=== PATIENT | female | born 2005 | race Caucasian/White ===

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

== ENCOUNTER 2025-03-19 16:18 | Outpatient (CLI) | payer MEDICAID, SELFPAY ==
--- OUTSIDE RECORDS SUMMARY | 2025-01-28 13:00 | XMS_ITS | Encounter Summary ---
Author Organization [employer] Address [address] [place] [address] Care Team Providers Care Director Of Construction Name Role Phone Jcarlos Barronlye Walkergalilea SIMPSON Primary Care Provider Reason for Referral * Consultation (Routine) - Closed Specialty Diagnoses / Procedures Referred By Contac t Referred To Contact Sleep Medicine Diagnoses HAWA (obstructive sleep apnea) Wally Cartagena MD [address] [facility] [address] [place] [address] Phone: tel: fax: Julianne Pantoja MD [address] [facility] [address] [place] [address] Phone: tel: fax: Referral ID Status Reason Start Date Expiration Date V isits Requested Visits Authorized [id number] Closed Specialty Services Required 01/28/2025 01/28/2026 1 1 * Surgical (Routine) - Closed Specialty Diagnoses / Procedures Referred By Contac t Referred To Contact Pulmonology Diagnoses Shortness of breath Procedures Pulmonary Function Testing PFT and MCT Wally Cartagena MD [address] [facility] [address] [place] [address] Phone: tel: fax: [facility] [address] [place] [phone] Phone: tel: fax: Referral ID Status Reason Start Date Expiration Date Visits Re quested Visits Authorized [id number] Closed 02/04/2025 02/04/2026 1 1 Reason for Visit * Reason Comments Shortness of Breath Cough Chest Pain New patient here tod ay for NULL Encounter Details Date Type Department Care Team (Late st Contact Info) Description 01/28/2025 1:00 PM EDT Office Visit [facility] Pulmonology - [address] [place] [address] Wally Cartagena MD [address] [place] [address] HAWA (obstructive sleep apnea) (Primary Dx); Shortness of breath; Wheezing; Other fatigue Social History Tobacco Use Types Packs/Day Years Used Date Smoking Tobacco: Never Smokeless Tobacco: Never Alcohol Use Standard Drinks/Week Comments Not Currently 0 (1 standard drink = 0.6 oz pur e alcohol) Humiliation, Afraid, Rape, and Kick questionnair e Answer Date Recorded Within the last year, have y ou been afraid of your partner or ex-partner? No 06/20/2023 Within the last year, have y ou been humiliated or emotionally abused in other ways by your partner or ex-partner? No Within the last year, have y ou been kicked, hit, slapped, or otherwise physically hurt by your partner or ex-partner? No 06/20/2023 Within the last year, have y ou been raped or forced to have any kind of sexual activity by your partner or ex-partner? No 06/20/2023 AUDIT-C Answer Date Recorded Q1: How often do you have a drink containing alcohol? Never 06/20/2023 Q2: How many drinks containi ng alcohol do you have on a typical day when you are drinking? Patient does not drink Q3: How often do you have si x or more drinks on one occasion? Never 06/20/2023 Overall Financial Resource Strain (CARDIA) Answe r Date Recorded How hard is it for you to pa y for the very basics like food, housing, medical care, and heating? Not hard at all 06/20/2023 PHQ-2 Answer Date Recorded Patient Health Questionnaire-2 Score 0 06/20/2023 [facility] - Occupational Stress Questionnaire Answer Date Recorded Do you feel stress - tense, restless, nervous, or anxious, or unable to sleep at night because your mind is troubled all the time - these days? To some extent 06/20/2023 Exercise Vital Sign Answer Date Recorde d On average, how many days pe r week do you engage in moderate to strenuous exercise (like a brisk walk)? 5 days 06/20/2023 On average, how many minutes do you engage in exercise at this level? 30 min 06/20/2023 Hunger Vital Sign Answer Date Recorded Within the past 12 months, y ou worried that your food would run out before you got the money to buy more. Never true 06/20/20 23 Within the past 12 months, t he food you bought just didn't last and you didn't have money to get more. Never true 06/20/2023 PRAPARE - Transportation Answer Date Re corded In the past 12 months, has l ack of transportation kept you from medical appointments or from getting medications? No 06/24/2023 Lack of Transportation (Non-Medical) Not on file 06/24/2023 Housing Stability Vital Sign Answer Alvaro e Recorded In the last 12 months, was t here a time when you were not able to pay the mortgage or rent on time? No 06/24/2023 In the last 12 months, how many places have you lived? 2 06/24/2023 In the last 12 months, was t here a time when you did not have a steady place to sleep or slept in a chcf (including now)? No 06/24/2023 [facility] Intimate Partner Violence Answer Da te Recorded Within the last year, have y ou been afraid of your partner or ex-partner? No 06/20/2023 Within the last year, have y ou been humiliated or emotionally abused in other ways by your partner or ex-partner? No Within the last year, have y ou been kicked, hit, slapped, or otherwise physically hurt by your partner or ex-partner? No 06/20/2023 Within the last year, have y ou been raped or forced to have any kind of sexual activity by your partner or ex-partner? No 06/20/2023 Interpersonal Safety Answer Date Record ed Family or friends hurt you Not on file 10/20 Family or friends insult you Not on file Family or friends threaten you Not on file 0 10/20/2023 Family or friends scream or curse at you Not on file 10/20/2023 Housing Stability Answer Date Recorded Living situation today Not on file Living situation problems Not on file 2023 Transportation Needs Answer Date Record ed Transportation unreliable past 12 months Not on file 01/11/2024 Family and Community Support Answer Alvaro e Recorded Help with Day to Day Activities Not on file 10/20/2023 Feeling Lonely or Isolated Not on file 10/20 Educational Attainment Answer Date Jayce rded Speak language other than Beninese at home Not on file 10/20/2023 Want help with school or training Not on file 10/20/2023 Depression Answer Date Recorded PHQ-2 Risk Not on file 10/20/2023 Disabilities Answer Date Recorded Difficulty concentrating Not on file 024 Difficulty doing errands alone Not on file 0 10/20/2023 Substance Use Answer Date Recorded Used prescription meds for non-medical reasons N ot on file 10/20/2023 Used illegal drugs past 12 months Not on file 10/20/2023 Comments No Sex and Gender Information Value Date Recorded Sex Assigned at Not on file Legal Sex Female 5:29 PM CDT Gender Identity Not on file Sexual Orientation Not on file documented as of this encounter Last Filed Vital Signs Vital Sign Reading Time Taken Comments Blood Pressure 126/76 01/28/2025 1:17 PM EDT Pulse 102 01/28/2025 1:17 PM EDT Temperature 36.6 C (97.9 F) 01/28/2025 1:17 PM EDT Respiratory Rate 16 01/28/2025 1:17 PM EDT Oxygen Saturation 97% 01/28/2025 1:17 PM EDT Inhaled Oxygen Concentration - - Weight 61.7 kg (136 lb) 01/28/2025 1:17 PM EDT Height 160 cm (5' 3 ) 01/28/2025 1:17 PM EDT Body Mass Index 24.09 01/28/2025 1:17 PM EDT documented in this encounter Progress Notes * Wally Cartagena MD - 01/28/2025 1:00 PM EDT CHIEF COMPLAINT: Chief Complaint Patient presents with Shortness of Breath Cough Chest Pain New patient here today for NULL HPI: This is a 19 y.o. patient who was referred in consultation for evaluation of breath. Patient statedthat she has been shortness of breath for 2 years associated with fatigue. She went to cardiology Dr Duarte at [place], [place] Patient had extensive workup including echocardiogram, Holter monitoring. States that that she was prescribed Cardizem 2000 twice daily for POTS. - Patient stated that she still feels tachycardic and fatigue even when she is compliant on her medications. However she noticed she feels more fatigue when she missed the dose. - Patient has sleep study done in the past however it was home study and she did not fall asleep about an hour after she hookup the monitor. Hb 12.6, normal MCV Patient stated that she was prescribed albuterol inhaler recently from ED. That helped her shortness of breath and lingering cough however she does not use much since it is worsen her palpitation. - Chief Complaint Patient presents with Shortness of Breath Cough Chest Pain New patient here today for NULL . Current Outpatient Medications: albuterol 90 mcg/actuation inhaler, Inhale by mouth every 6 (six) hours as needed for wheezing., Disp: , Rfl: amitriptyline (ELAVIL) 10 MG tablet, , Disp: , Rfl: atogepant (Qulipta) 10 mg tab, Take 1 tablet every day by oral route for 90 days., Disp: , Rfl: cyclobenzaprine (FLEXERIL) 5 MG tablet, TAKE 1 TABLET ORAL ROUTE 3 TIMES PER DAY NEEDED, Disp: ,Rfl: dicyclomine (BENTYL) 10 MG capsule, Take 1 capsule (10 mg total) by mouth 3 (three) times daily as needed., Disp: , Rfl: diltiazem (Tiadylt ER) 120 MG 24 hr capsule, 120 MG ORALLY TWICE A DAY FOR 90 DAYS, Disp: , Rfl: doxycycline (ADOXA) 100 MG tablet, , Disp: , Rfl: EPINEPHrine (EPIPEN) 0.3 mg/0.3 mL, Take 1 auto as needed by injection route as directed for 28 days., Disp: , Rfl: Estarylla 0.25-35 mg-mcg per tablet, Take 1 tablet by mouth daily., Disp: , Rfl: fluconazole (DIFLUCAN) 150 MG tablet, Take 1 tablet (150 mg total) by mouth daily., Disp: , Rfl: hydrOXYzine (ATARAX) 25 MG tablet, TAKE 1 TABLET BY MOUTH EVERY DAY BY MOUTH NEEDED., Disp: , Rfl: meclizine (ANTIVERT) 25 mg tablet, Take 1 tablet (25 mg total) by mouth 2 (two) times daily as needed., Disp: , Rfl: metroNIDAZOLE (FLAGYL) 500 MG tablet, , Disp: , Rfl: pqtbqzya-yvsyekfuc-fggqffsifacsor (CORTISPORIN) 3.5-10,000-1 mg/mL-unit/mL-% otic suspension, SHAKELIQUID AND INSTILL 4 DROPS TO AFFECTED EAR THREE TIMES DAILY, Disp: , Rfl: norethindrone-ethinyl estradiol (MICROGESTIN /20) 1-20 mg-mcg per tablet, Take 1 tablet by mouth daily Take continuously without placebo., Disp: , Rfl: SUMAtriptan (IMITREX) 25 MG tablet, TAKE 1 TAB BY MOUTH AT ONSET OF MIGRAINE MAY REPEAT IN 2 HRS IFHEADACHE RETURNS MAX 200MG IN 24HRS, Disp: , Rfl: levalbuterol (XOPENEX HFA) 45 mcg/actuation inhaler, Inhale 1-2 puffs by mouth every 4 (four) hoursas needed for wheezing or shortness of breath., Disp: 1 Inhaler, Rfl: 2 No Known Allergies Social History Socioeconomic History Marital status: Single Spouse name: Not on file Number of children: Not on file Years of education: Not on file Highest education level: Not on file Occupational History Not on file Tobacco Use Smoking status: Never Smokeless tobacco: Never Substance and Sexual Activity Alcohol use: Not Currently Drug use: Never Sexual activity: Not on file Other Topics Concern Not on file Social History Narrative Not on file Social Drivers of Health Financial Resource Strain: Low Risk (06/20/2023) Overall Financial Resource Strain (CARDIA) Difficulty of Paying Living Expenses: Not hard at all Food Insecurity: No Food Insecurity (06/20/2023) Hunger Vital Sign Worried About Running Out of Food in the Last Year: Never true Ran Out of Food in the Last Year: Never true Transportation Needs: No Transportation Needs (01/11/2024) Transportation Needs Transportation unreliable past 12 months: Not on file Physical Activity: Sufficiently Active (06/20/2023) Exercise Vital Sign Days of Exercise per Week: 5 days Minutes of Exercise per Session: 30 min Stress: Stress Concern Present (06/20/2023) [facility] Occupational Health - Occupational Stress Questionnaire Feeling of Stress : To some extent Social Connections: Low Risk (10/20/2023) Family and Community Support Help with Day to Day Activities: Not on file Feeling Lonely or Isolated: Not on file Intimate Partner Violence: Not At Risk (06/20/2023) [facility] Int[facility] Fear of Current or Ex-Partner: No Emotionally Abused: No Physically Abused: No Sexually Abused: No Housing Stability: Low Risk (12/20/2023) Housing Stability Living situation today: Not on file Living situation problems: Not on file Recent Concern: Housing Stability - High Risk (12/18/2023) Housing Stability Living situation today: Not on file Living situation problems: Not on file Past Medical History: Diagnosis Date Dyspnea 12/20/2024 Frequent headaches 12/20/2024 Mild tricuspid regurgitation 12/20/2024 Obstructive sleep apnea 12/20/2024 Shortness of breath 12/20/2024 Past Surgical History: Procedure Laterality Date TYMPANOSTOMY TUBE PLACEMENT Family History Problem Relation Name Age of Onset Cancer Maternal Grandmother Diabetes Maternal Grandfather Patients medications, allergies, social, medical and surgical history were reviewed by me and updated as appropriate. REVIEW OF SYSTEMS: Review of Systems Respiratory: Positive for cough, shortness of breath and wheezing. All other systems reviewed and are negative. PHYSICAL EXAM: VITAL SIGNS: BP 126/76 (BP Location: Right arm, Patient Position: Sitting) Pulse 102 Temp 97.9 ??F (36.6 ??C) Resp 16 Ht 1.6 m (5' 3 ) Wt 61.7 kg (136 lb) SpO2 97% BMI 24.09 kg/m?? Physical Exam Vitals reviewed. Constitutional: Appearance: Normal appearance. HENT: Head: Normocephalic and atraumatic. Right Ear: Tympanic membrane normal. Left Ear: Tympanic membrane normal. Nose: Nose normal. Mouth/Throat: Mouth: Mucous membranes are moist. Eyes: Extraocular Movements: Extraocular movements intact. Cardiovascular: Rate and Rhythm: Normal rate and regular rhythm. Pulses: Normal pulses. Heart sounds: Normal heart sounds. Pulmonary: Effort: Pulmonary effort is normal. Comments: Decreased air entry in bilateral lower lobes Abdominal: General: Bowel sounds are normal. Palpations: Abdomen is soft. Musculoskeletal: General: Normal range of motion. Cervical back: Normal range of motion. Skin: General: Skin is warm. Capillary Refill: Capillary refill takes less than 2 seconds. Neurological: General: No focal deficit present. Mental Status: She is alert and oriented to person, place, and time. Psychiatric: Mood and Affect: Mood normal. Labs: Imaging : No results found for this or any previous visit from the past 365 days. PFT's: ECHO: ASSESSMENT & PLAN 1. HAWA (obstructive sleep apnea) (Primary) Patient needs proper in lab sleep study - Ambulatory referral to Sleep Medicine; Future 2. Shortness of breath unknown etiology -likely combination of reactive airway disease and extreme fatigue Will rule out COPD and asthma. - Recommended to take her diltiazem regularly. - Pulmonary Function Testing; Future Will switch from albuterol to - levalbuterol (XOPENEX HFA) 45 mcg/actuation inhaler; Inhale 1-2 puffs by mouth every 4 (four) hours as needed for wheezing or shortness of breath. Dispense: 1 Inhaler; Refill: 2 3. Wheezing - levalbuterol (XOPENEX HFA) 45 mcg/actuation inhaler; Inhale 1-2 puffs by mouth every 4 (four) hours as needed for wheezing or shortness of breath. Dispense: 1 Inhaler; Refill: 2 4. H/o POTS 5. MRI brain was negative RTC after PFT and MCT test Provider notes reviewed for this visit: Thank you Dr. Duarte for allowing us to participate in this patients care. Note to patient: The Century Cures Act makes medical notes like this one available to patientsin the interest of transparency. However, be advised that this is a medical document. It is intended as a peer to peer communication. It is written in medical language and may contain abbreviations or verbiage that are unfamiliar. It may appear blunt or direct. Medical documentation is intended to carry relevant information, facts as evident, and the clinical opinion of the practitioner. Addison disclaimer: Much of this encounter was dictated with an electronic roll slicing machine tender spoken language to printed text. Electronic roll slicing machine tender of the spoken language can lead to errors, and at times, nonsensical words or phrases inadvertently being transcribed. I have reviewed the note for such errors, some may still exist. Please call with questions. Electronically signed by Wally Cartagena MD - 01/28/2025 - 2:14 PM EDT documented in this encounter Plan of Treatment Upcoming Encounters Date Type Department Care Team (Late st Contact Info) Description 03/24/2025 8:30 PM EDT Procedure Visit [facility] [address] [facility] [address] [place] [phone] Julianne Pantoja MD [address] [facility] [address] [place] [address] 05/21/2025 2:30 PM EDT Office Visit [facility] [address] [facility] [address] [place] [address] Julianne Pantoja MD [address] [address] 05/22/2025 2:30 PM EDT Office Visit [facility] Pulmonology - [address] [place] [phone] Wally Cartagena MD [address] [facility] [address] [place], [place] [id number] Scheduled Referrals Name Type Priority Associated Diagnoses Order Schedule Ambulatory referral to Sleep Medicine Outpatient Referral Routine HAWA (obstructive sleep apnea) Expected: 01/28/2025, Expires: 01/28/2026 documented as of this encounter Results * Pulmonary Function Testing (02/13/2025 2:14 PM EDT) Anatomical Region Laterality Modality Other Narrative 03/11/2025 6:49 AM EDT methacholine challenge test: Spirometry quality is acceptable. FEV1 dropped by 20% at the provocation level 5, corresponding to dose 16 mg/ml. substantial postchallange recovery. Borderline bronchial responsiveness, clinical Correlation recommended Reference value > 16 Normal bronchial responsiveness 4.0-16 Borderline bronchial hyperresponsiveness. 1.0-4.0 Mild bronchial hyperresponsiveness. (positive test) < 1.0 Moderate to severe bronchial hyperresponsiveness. (positive test) PFT ------ spirometry data acceptable and reproducible. Spirometry shows: Normal spirometry There is insignificant postbronchodilator response Lung volumes/capacity: No evidence of air trapping Gas diffusion: Normal gas diffusion of carbon oxide Flow-volume loops: Normal Clinical impression: Normal PFT Wally Cartagena MD PFT ORDERABLES Final Result documented in this encounter Visit Diagnoses Diagnosis HAWA (obstructive sleep apnea)- Primary Obstructive sleep apnea (adult) (pediatric) Shortness of breath Wheezing Other fatigue Shortness of breath documented in this encounter Care Teams Director Of Construction Relationship Specialty Start Date End Date Dyana Barron DO [address] [facility] [place] [address] [place] [address] PCP - General Family Medicine 01/28/25 documented as of this encounter
--- OUTSIDE RECORDS SUMMARY | 2025-02-13 12:30 | XMS_ITS | Encounter Summary ---
Author Organization [employer] Address [address] [place] [address] Care Team Providers Care Cordwainer Name Role Phone Dyana Barron DO Primary Care Provider Reason for Referral * Surgical (Routine) - Closed Specialty Diagnoses / Procedures Referred By Contac t Referred To Contact Pulmonology Diagnoses Shortness of breath Procedures Pulmonary Function Testing PFT and MCT Wally Cartagena MD 211 [facility] 210 [place] [address] Phone: tel: fax: [facility] Pul[facility] Lab 1 [place] [address] Phone: tel: fax: Referral ID Status Reason Start Date Expiration Date Visits Re quested Visits Authorized [id number] Closed 02/04/2025 02/04/2026 1 1 Reason for Visit * Surgical (Routine) - Closed Specialty Diagnoses / Procedures Referred By Contac t Referred To Contact Pulmonology Diagnoses Shortness of breath Procedures Pulmonary Function Testing PFT and MCT Wally Cartagena MD 211 [facility] [address] [place] [address] Phone: tel: fax: [facility] 1 [place] [address] Phone: tel: fax: Referral ID Status Reason Start Date Expiration Date Visits Re quested Visits Authorized [id number] Closed 02/04/2025 02/04/2026 1 1 Encounter Details Date Type Department Care Team (Latest Contact Info) Description 02/13/2025 12:30 PM EDT - 02/13/2025 11:59 PM EDT Hospital Encounter [facility] Pul[facility] Lab 1 [place] [address] Wally Cartagena MD [address] [place] [address] Shortness of breath Discharge Disposition: [...] Recorded Patient Health Questionnaire-2 Score 0 06/20/2023 [facility] [place] [facility] - Occupational Stress [...] place to sleep or slept in a jail (including now)? No 06/24/2023 [facility] [...] Date Jayce rded Speak language other than Dominican at home Not on file 10/20/2023 Want [...] Description 03/24/2025 8:30 PM EDT Procedure Visit [facility] [address] [address] Julianne Pantoja MD [address] [address] 05/21/2025 2:30 PM EDT Office Visit [facility] [address] [address] Julianne Pantoja MD [address] [place] [address] 05/22/2025 2:30 PM EDT Office Visit [facility] Pulmonology - [address] [place] [address] Wally Cartagena MD [address] [place] [address] documented as of this encounter Procedures Procedure Name Priority Date/Time Associated Diagnosis Comments [place] CO DIFFUSING CAPACITY Routine 02/13/2025 2:14 PM [...] mg documented in this encounter Care Teams Cordwainer Relationship Specialty Start Date End Date Dyana Barron DO [address] [place] [address] [place] [address] PCP - General Family Medicine 01/28/25 documented as of this encounter
--- OUTSIDE RECORDS SUMMARY | 2025-02-19 14:45 | XMS_ITS | Encounter Summary ---
Author Organization [employer] Address [address] [place] [address] Care Team Providers Care Riveter Pneumatic Name Role Phone Dyana Barron Primary Care Provider Reason for Visit * Reason Comments Shortness of Breath Patient here today f or a follow up Encounter Details Date Type Department Care Team (Late st Contact Info) Description 02/19/2025 2:45 PM EDT Office Visit [facility] Pulmonology - [address] [place] [address] Wally Cartagena MD [address] [place] [address] Mild intermittent asthma without complication (Primary Dx); Wheezing Social History Tobacco Use Types Packs/Day Years Used Date Smoking Tobacco: Never Smokeless Tobacco: Never Tobacco Cessation:Counseling Given: Not Answered Alcohol Use Standard Drinks/Week Comments Not Currently [...] you are drinking? Patient does not drink 3 Q3: How often do you have si x or more drinks on one occasion? Never 06/20/2023 Overall Financial Resource Strain (CARDIA) Answe r Date Recorded How hard is it for you to pa y for the very basics like food, housing, medical care, and heating? Not hard at all 06/20/2023 PHQ-2 Answer Date Recorded Patient Health Questionnaire-2 Score 0 06/20/2023 [facility] - Occupational Stress Questionnaire Answer Date Recorded [...] Date Jayce rded Speak language other than Haitian at home Not on file 10/20/2023 Want [...] Sign Reading Time Taken Comments Blood Pressure 129/71 02/19/2025 2:46 PM EDT Pulse 87 02/19/2025 2:46 PM EDT Temperature 36.6 C (97.9 F) 02/19/2025 2:46 PM EDT Respiratory Rate 16 02/19/2025 2:46 PM EDT Oxygen Saturation 97% 02/19/2025 2:46 PM EDT Inhaled Oxygen Concentration - - Weight 61.7 kg (136 lb) 02/19/2025 2:46 PM EDT Height 160 cm (5' 3 ) 02/19/2025 2:46 PM EDT Body Mass Index 24.09 02/19/2025 2:46 PM EDT documented in this encounter Progress Notes * Wally Cartagena MD - 02/19/2025 2:45 PM EDT CHIEF COMPLAINT: Chief Complaint Patient presents with Shortness of Breath Patient here today for a follow up HPI: This is a 19 y.o. patient who was referred in consultation for evaluation of breath. Patient statedthat she has been shortness of breath for 2 years associated with fatigue. She went to cardiology Dr Duarte at [place], [place] Patient had extensive workup including echocardiogram, [...] much since it is worsen her palpitation. 02/19/2025-patient is here for follow-up with methacholine challenge test. PFT-no COPD however patient methacholine challenge test was positive for asthma. She stated that albuterol did not give her palpitation much anymore however it did not help her much as well. Her insurance did not approve for levalbuterol. - Chief Complaint Patient presents with Shortness of Breath Patient here today for a follow up . Current Outpatient Medications: acetaminophen (TYLENOL) 500 MG tablet, TAKE 1 TABLET (500 MG) BY MOUTH EVERY 6 HOURS NEEDED FOR PAIN OR FEVER FOR UP TO 14 DAYS., Disp: , Rfl: albuterol 90 mcg/actuation inhaler, Inhale by mouth [...] tablet by mouth daily., Disp: , Rfl: hydrOXYzine (ATARAX) 25 MG tablet, TAKE 1 TABLET BY MOUTH EVERY DAY BY MOUTH NEEDED., Disp: , Rfl: ibuprofen (MOTRIN) 400 MG tablet, TAKE 1 TABLET (400 MG) BY MOUTH EVERY 6 HOURS NEEDED FOR MILD PAIN OR FEVER FOR UP TO 14 DAYS., Disp: , Rfl: levalbuterol (XOPENEX HFA) 45 mcg/actuation inhaler, Inhale 1-2 puffs by mouth every 4 (four) hoursas needed for wheezing or shortness of breath., Disp: 1 Inhaler, Rfl: 2 meclizine (ANTIVERT) 25 mg tablet, Take 1 tablet (25 mg total) by mouth 2 (two) times daily as needed., Disp: , Rfl: SUMAtriptan (IMITREX) 25 MG tablet, TAKE 1 TAB BY MOUTH AT ONSET OF MIGRAINE MAY REPEAT IN 2 HRS IFHEADACHE RETURNS MAX 200MG IN 24HRS, Disp: , Rfl: budesonide-formoteroL (Symbicort) 80-4.5 mcg/actuation inhaler, Inhale 2 puffs by mouth 2 (two) times daily for 30 days., Disp: 1 Inhaler, Rfl: 6 montelukast (SINGULAIR) 10 mg tablet, Take 1 tablet (10 mg total) by mouth nightly., Disp: 30 tablet, Rfl: 3 No Known Allergies Social History Socioeconomic History [...] 30 min Stress: Stress Concern Present (06/20/2023) [facility] [place] [facility] - Occupational Stress Questionnaire [...] SYSTEMS: Review of Systems Respiratory: Positive for cough and shortness of breath. Negative for wheezing. All other systems reviewed and are negative. PHYSICAL EXAM: VITAL SIGNS: BP 129/71 (BP Location: Left arm, Patient Position: Sitting) Pulse 87 Temp 97.9 ??F (36.6 ??C) Resp 16 [...] is normal. Comments: Decreased air entry in left lower lobe Abdominal: General: Bowel sounds are normal. Palpations: [...] Sleep Medicine; Future 2. Shortness of breath -likely combination of asthma, reactive airway disease and extreme fatigue Symbicort 80 mcg strength 1 to 2 puff twice daily depending on tolerance. - Albuterol 2 puffs every 4 hours as needed for wheezing, coughing fits or breakthrough shortness of breath. - Will also prescribe montelukast daily. All risk and benefit discussed. Patient is willing to take. She will monitor side effect also she stated understanding organism mouth well after steroid inhaler use. 3. Wheezing As above 4. H/o POTS 5. MRI brain was negative RTC 3 months Provider notes reviewed for this visit: Thank [...] and the clinical opinion of the practitioner. Dragon disclaimer: Much of this encounter was dictated with an electronic cigarette machine operator spoken language to printed text. Electronic cigarette machine operator of the spoken language can lead to [...] Description 03/24/2025 8:30 PM EDT Procedure Visit [facility] [address] [address] Julianne Pantoja MD [address] [address] 05/21/2025 2:30 PM EDT Office Visit [facility] [address] [address] Julianne Pantoja MD [address] [address] 05/22/2025 2:30 PM EDT Office Visit [facility] Pulmonology - [address] [facility] [address] [place] [address] Wally Cartagena MD [address] [facility] [address] [place] [address] documented as of this encounter Visit Diagnoses Diagnosis Mild intermittent asthma without complication- Primary Wheezing documented in this encounter Care Teams Riveter Pneumatic Relationship Specialty Start Date End Date Dyana Barron DO [address] [facility] [place] [address] [place] [address] PCP - General Family Medicine 01/28/25 documented as of this encounter
--- OUTSIDE RECORDS SUMMARY | 2025-02-26 14:00 | XMS_ITS | Encounter Summary ---
Author Organization [employer] Address [address] [place] [address] Care Team Providers Care Director Data Processing Name Role Phone Dyana Barron DO Primary Care Provider Reason for Referral * Other (Routine) - Authorized Specialty Diagnoses / Procedures Referred By Mallory neely Referred To Contact Sleep Medicine Diagnoses Hypersomnia Procedures POLYSOMNOGRAPHY Julianne Pantoja MD [address] [facility] [place] [address] Phone: tel: fax: [facility] [address] [place] [address] Phone: tel: fax: Referral ID Status Reason Start Date Expiration Date V isits Requested Visits Authorized [id number] Authorized 03/12/2025 03/12/2026 1 1 Reason for Visit * Reason Comments Sleep Study New eval * Consultation (Routine) - Closed Specialty Diagnoses / Procedures Referred By Mallory neely Referred To Contact Sleep Medicine Diagnoses HAWA (obstructive sleep apnea) Wally Cartagena MD [address] [facility] [address] [place] [address] Phone: tel: fax: Julianne Pantoja MD [address] [place] [address] Phone: tel: fax: Referral ID Status Reason Start Date Expiration Date V isits Requested Visits Authorized [id number] Closed Specialty Services Required 01/28/2025 01/28/2026 1 1 Encounter Details Date Type Department Care Team (Late st Contact Info) Description 02/26/2025 2:00 PM EDT Initial Consult [facility] [address] [facility] [address] [place] [address] Wally Cartagena MD [address] [facility] [address] [place] [address] Julianne Pantoja MD [address] [facility] [address] [place] [address] Hypersomnia; Nocturnal dyspnea; Parasomnia, unspecified [...] Recorded Patient Health Questionnaire-2 Score 0 06/20/2023 [facility] of Occupat ional [facility] - Occupational Stress Questionnaire Answer Date [...] Date Jayce rded Speak language other than Micronesian at home Not on file 10/20/2023 Want [...] to an hour to fall asleep. Her [place] score is 7-8. But she relates that [...] Description 03/24/2025 8:30 PM EDT Procedure Visit [address] [employer] [address] [address] Julianne Pantoja MD [address] [address] 05/21/2025 2:30 PM EDT Office Visit [facility] [address] [address] Julianne Pantoja MD [address] [address] 05/22/2025 2:30 PM EDT Office Visit [facility] Pulmonology - [address] [facility] [address] [place] [address] Wally Cartagena MD [address] [facility] [address] [place] [address] Scheduled Orders Name Type Priority Associated Diagnoses Orde r Schedule POLYSOMNOGRAPHY Sleep Center Routine Hypersomnia Expected: 03/12/2025, Expires: 02/26/2026 documented as of this encounter Visit Diagnoses Diagnosis Hypersomnia Hypersomnia, unspecified Nocturnal dyspnea Orthopnea Parasomnia, unspecified type Poor sleep hygiene Other specific disorder of sleep of nonorganic origin documented in this encounter Care Teams Director Data Processing Relationship Specialty Start Date End Date Dyana Barron DO [address] [place] [address] PCP - General Family Medicine 01/28/25 documented as of this encounter
[2025-03-19 16:19] LABS: Lipase 90 U/L (23-300)
--- OUTSIDE RECORDS SUMMARY | 2025-03-19 16:20 | XMS_ITS | Clinical Summary ---
Author Organization [facility] Address [address] [facility] [address] [place] [address] Phone Care Team Providers Care Drawing Box Tender Name Role Phone Unavailable Unavailable Conditions or Problems No information available. Medications No information available. Medications Administered No information available. Allergies, Adverse Reactions, Alerts No information available. Results No information available. Plan of Care No information available. Procedures No information available. Vital Signs No information available. Immunizations No information available. Advance Directives No information available.
--- OUTSIDE RECORDS SUMMARY | 2025-03-19 16:20 | XMS_ITS | Encounter Summary ---
Author Organization [employer] Address [address] [place] [address] Care Team Providers Care Transfer Knitter Name Role Phone Dyana Barron Primary Care Provider Encounter Details Date Type Department Care Team (Latest Contact Info) Description 02/26/2025 Travel Social History Tobacco Use Types Packs/Day Years [...] Patient Health Questionnaire-2 Score 0 06/20/2023 [facility] of Occupat ional [facility] - Occupational Stress Questionnaire Answer Date [...] Date Jayce rded Speak language other than Vincentian at home Not on file 10/20/2023 Want [...] on file documented as of this encounter Plan of Treatment Upcoming Encounters Date Type Department Care Team (Late st Contact Info) Description 03/24/2025 8:30 PM EDT Procedure Visit [facility] [address] [facility] [address] [place] [address] Julianne Pantoja MD [address] [facility] [address] [place] [address] 05/21/2025 2:30 PM EDT Office Visit [facility] [address] [facility] [address] [place] [address] Julianne Pantoja MD [address] [facility] [address] [place] [address] 05/22/2025 2:30 PM EDT Office Visit [facility] Pulmonology - [address] [place] [address] Wally Cartagena MD [address] [place], [place] [id number] documented as of this encounter Visit Diagnoses Not on filedocumented in this encounter Care Teams Transfer Knitter Relationship Specialty Start Date End Date Dyana Barron, [address] [facility] [place] [address] PCP - General Family Medicine 01/28/25 documented as of this encounter
--- OUTSIDE RECORDS SUMMARY | 2025-03-19 16:20 | XMS_ITS | Encounter Summary ---
Author Organization [employer] Address [address] [place] [address] Care Team Providers Care Peanut Farmer Name Role Phone Dyana Barron Primary Care Provider Encounter Details Date Type Department Care Team (Latest Contact Info) Description 01/28/2025 Travel Social History Tobacco Use Types Packs/Day [...] Recorded Patient Health Questionnaire-2 Score 0 06/20/2023 [facility] Occupat ional [facility] - Occupational Stress Questionnaire Answer Date Recorded [...] place to sleep or slept in a assisted (including now)? No 06/24/2023 [facility] [...] Date Jayce rded Speak language other than [place] at home Not on file 10/20/2023 Want [...] Description 03/24/2025 8:30 PM EDT Procedure Visit [facility] [address] [facility] [facility] [facility] [address] [place] [address] Julianne Pantoja MD [address] [facility] [address] [place] [address] 05/21/2025 2:30 PM EDT Office Visit [facility] [address] [facility] [address] [place] [address] Julianne Pantoja MD [address] [facility] [address] [place] [address] 05/22/2025 2:30 PM EDT Office Visit [facility] Pulmonology - [address] [place] [address] Wally Cartagena MD [address] [place], [place] [id number] documented as of this encounter Visit Diagnoses Not on filedocumented in this encounter Care Teams Peanut Farmer Relationship Specialty Start Date End Date Dyana Barron, [address] [facility] [place] [address] PCP - General Family Medicine 01/28/25 documented as of this encounter
--- OUTSIDE RECORDS SUMMARY | 2025-03-19 16:20 | XMS_ITS | Encounter Summary ---
Author Organization [employer] Address [address] [place] [address] Care Team Providers Care Finance Teacher Name Role Phone Dyana Barron Primary Care Provider Encounter Details Date Type Department Care Team (Latest Contact Info) Description 02/13/2025 Travel Social History Tobacco Use Types Packs/Day [...] Recorded Patient Health Questionnaire-2 Score 0 06/20/2023 [facility] of Occupat ional [facility] - Occupational Stress Questionnaire Answer [...] place to sleep or slept in a detention (including now)? No 06/24/2023 [facility] [...] Date Jayce rded Speak language other than Bhutanese at home Not on file 10/20/2023 Want [...] Description 03/24/2025 8:30 PM EDT Procedure Visit [facility] [address] [facility] [address] [place] [address] Julianne Pantoja MD [address] [facility] [address] [place] [address] 05/21/2025 2:30 PM EDT Office Visit [facility] [address] [facility] [address] [place] [address] Julianne Pantoja MD [address] [address] [place] [address] 05/22/2025 2:30 PM EDT Office Visit [facility] Pulmonology - [address] [place] [address] Wally Cartagena MD [address] [place], [place] [id number] documented as of this encounter Visit Diagnoses Not on filedocumented in this encounter Care Teams Finance Teacher Relationship Specialty Start Date End Date Dyana Barron, [address] [facility] [place] [address] PCP - General Family Medicine 01/28/25 documented as of this encounter
--- OUTSIDE RECORDS SUMMARY | 2025-03-19 16:20 | XMS_ITS | Referral Summary ---
Author Organization [employer] Address [address] [place] [address] Care Team Providers Care Compact Assembler Name Role Phone Dyana Barron DO Primary Care Provider Encounters Date Type Department Care Team Description 02/26/2025 Travel 02/26/2025 2:00 PM EDT Initial Consult [facility] [address] [place] [address] Wally Cartagena MD Combs, Pamela A, MD Hypersomnia; Nocturnal dyspnea; Parasomnia, unspecified type; Poor sleep hygiene 02/19/2025 2:45 PM EDT Office Visit [facility] [address] [place] [address] Wally Cartagena MD Mild intermittent asthma without complication (Primary Dx); Wheezing 02/13/2025 Travel 02/13/2025 12:30 PM EDT - 02/13/2025 11:59 PM EDT Hospital Encounter [facility] Pulmonary Lab 1 [place] [phone] Wally Cartagena MD Shortness of breath Discharge Disposition: Home or Self Care 01/28/2025 Travel 01/28/2025 1:00 PM EDT Office Visit [facility] Pulmonology [facility] [address] [place] [address] Wally Cartagena MD HAWA (obstructive sleep apnea) (Primary Dx); Shortness of breath; Wheezing; Other fatigue from Last 3 Months Allergies No known active allergies Medications EPINEPHrine (EPIPEN) 0.3 mg/0.3 mL Take 1 auto as needed by injection route as directed for 28 days. Active amitriptyline (ELAVIL) 10 MG tablet Active atogepant (Qulipta) 10 mg tab Take 1 tablet every day by oral route for 90 days. 07/10/20 24 Active cyclobenzaprine (FLEXERIL) 5 MG tablet TAKE 1 TABLET ORAL ROUTE 3 TIMES PER DAY NEEDED Active dicyclomine (BENTYL) 10 MG capsule Take 1 capsule (10 mg total) by mouth 3 (three) times daily as needed. Active diltiazem (Tiadylt ER) 120 MG 24 hr capsule 120 MG ORALLY TWICE A DAY FOR 90 DAYS Active doxycycline (ADOXA) 100 MG tablet Active hydrOXYzine (ATARAX) 25 MG tablet TAKE 1 TABLET BY MOUTH EVERY DAY BY MOUTH NEEDED. Active meclizine (ANTIVERT) 25 mg tablet Take 1 tablet (25 mg total) by mouth 2 (two) times daily as needed. Active SUMAtriptan (IMITREX) 25 MG tablet TAKE 1 TAB BY MOUTH AT ONSET OF MIGRAINE MAY REPEAT IN 2 HRS IF HEADACHE RETURNS MAX 200MG IN 24HRS Active Estarylla 0.25-35 mg-mcg per tablet Take 1 tablet by mouth daily. 11/19/19 25 Active albuterol 90 mcg/actuation inhaler Inhale by mouth every 6 (six) hours as needed for wheezing. Active levalbuterol (XOPENEX HFA) 45 mcg/actuation inhalerIndications :Shortness of breath,Wheezing Inhale 1-2 puffs by mouth every 4 (four) hours as needed for wheezing or shortness of breath. 1 Inhaler 2 01/29/20 25 Active acetaminophen (TYLENOL) 500 MG tablet TAKE 1 TABLET (500 MG) BY MOUTH EVERY 6 HOURS NEEDED FOR PAIN OR FEVER FOR UP TO 14 DAYS. Active ibuprofen (MOTRIN) 400 MG tablet TAKE 1 TABLET (400 MG) BY MOUTH EVERY 6 HOURS NEEDED FOR MILD PAIN OR FEVER FOR UP TO 14 DAYS. Active montelukast (SINGULAIR) 10 mg tabletIndications: Mild intermittent asthma without complication Take 1 tablet (10 mg total) by mouth nightly. 30 tablet 3 02/20/20 25 026 Active budesonide-formote roL (Symbicort) 80-4.5 mcg/actuation inhalerIndications :Mild intermittent asthma without complication Inhale 2 puffs by mouth 2 (two) times daily for 30 days. 1 Inhaler 6 02/20/20 25 025 Active ondansetron (ZOFRAN-ODT) 4 MG disintegrating tablet Take 1 tablet (4 mg total) by mouth every 6 (six) hours as needed. 025 Discontin ued(Thera py completed ) Active Problems Problem Noted Date Diagnosed Date Malaise 12/27/2024 Shortness of breath 12/20/2024 Frequent headaches 12/20/2024 Dyspnea 12/20/2024 Mild tricuspid regurgitation 12/20/2024 Obstructive sleep apnea 12/20/2024 Dysmenorrhea 12/20/2024 Bacterial vaginosis 12/11/2024 Dyspnea 12/09/2024 Difficult or painful urination 12/09/2024 Acute urinary tract infection 12/09/2024 Cough 07/19/2024 Acute upper respiratory infection 07/19/2024 Acute generalized body pain 07/19/2024 Migraine without aura 07/10/2024 High thyroid stimulating hormone (TSH) level 07/2024 Insomnia 06/10/2024 Neck pain 04/12/2024 Nausea 04/12/2024 Chronic migraine without aura 04/12/2024 Vomiting 04/10/2024 Acute pharyngitis, unspecified 04/10/2024 Amenorrhea 01/10/2024 Influenza due to identified novel influenza A virus with other respiratory manifestations 10/15/2023 Dizziness 10/15/2023 Anterior epistaxis 10/15/2023 Pain in lower limb 10/08/2023 Dysfunction of both eustachian tubes 08/31/2023 Acute right otitis media 08/06/2023 Thoracic back pain 08/01/2023 Chronic back pain 08/01/2023 Muscle weakness 08/01/2023 Fatigue 08/01/2023 Vaginal discharge 07/24/2023 Acute sinusitis 07/24/2023 Right upper quadrant pain 07/14/2023 Weakness of both lower extremities 06/20/2023 Social History Tobacco Use Types Packs/Day Years [...] the money to buy more. Never true 09/19/20 23 Within the past 12 months, t [...] place to sleep or slept in a longterm (including now)? No 06/24/2023 [facility] Intimate Partner [...] Feeling Lonely or Isolated Not on file 01/19 /2024 Educational Attainment Answer Date Jayce rded Speak language other than Kinyarwanda at home Not on file 10/20/2023 Want [...] on file Sexual Orientation Not on file Last Filed Vital Signs Vital Sign Reading Time Taken Comments Blood Pressure 116/61 02/26/2025 2:14 PM EDT Pulse 89 02/26/2025 2:14 PM EDT Temperature 36.6 C (97.9 F) 02/19/2025 2:46 PM EDT Respiratory Rate 16 02/26/2025 2:14 PM EDT Oxygen Saturation 98% 02/26/2025 2:14 PM EDT Inhaled Oxygen Concentration - - Weight 63.2 kg (139 lb 6.4 oz) 02/26/2025 2:14 P M EDT Height 160 cm (5' 3 ) 02/26/2025 2:14 PM EDT Body Mass Index 24.69 02/26/2025 2:14 PM EDT Plan of Treatment Upcoming Encounters Date Type Department Care Team (Late st Contact Info) Description 03/24/2025 8:30 PM EDT Procedure Visit [facility] [address] [facility] [address] [facility] [address] [place] [address] Julianne Pantoja MD [address] [facility] [address] [address] 05/21/2025 2:30 PM EDT Office Visit [facility] [address] [place] [address] Julianne Pantoja MD [address] [place] [address] 05/22/2025 2:30 PM EDT Office Visit [facility] Pulmonology - [address] [place] [address] Wally Cartagena MD [address] [place] [address] Procedures Procedure Name Priority Date/Time Associated Diagnosis Comments [place] CO DIFFUSING CAPACITY Routine 02/13/2025 2:14 PM EDT Shortness of breath HIV 1/2 AG/AB COMBO Routine 06/22/2023 3 :08 AM EDT from Last 3 Months or Most Recently Relevant to Health Maintenance Results * Pulmonary Function Testing (02/13/2025 2:14 [...] Wally Cartagena MD PFT ORDERABLES Final Result * HIV 1/2 AG/AB Combo (06/22/2023 3:08 AM EDT) HIV-1 P24 Antigen Nonreactive Nonreactive 06/22/2023 4:43 AM EDT [facility] Comment: The Combo HIV procedure is a fourth generation HIV test which detects BOTH p24 antigen AND HIV antibodies to HIV virus types 0, 1, and 2. A reactive result does not distinguish between the antigen or the antibody and does not specify which antibody is present. Additional testing is required to differentiate the component causing the reactive result. Biotin supplements can cause clinically significant incorrect lab results. The FDA has seen an increase in the number of adverse events related to biotin interference with lab tests. Blood Venipuncture / Unknown 06/22/2023 3:08 AM EDT 06/22/2023 3:16 AM EDT us Ronal Purcell MD LAB BLOOD ORDERABLES Final R esult [facility] [address] [phone] from Last 3 Months or Most Recently Relevant to Health Maintenance Insurance [employer] MEDICA[employer] Advance Directives For more information, please contact: [phone] * Full Code (Latest Code Status on File) Date Activated Date Inactivated Comments 06/20/2023 1:53 AM 06/24/2023 4:52 PM -Attempt Res uscitation if person has no pulse and is not breathing. -If no pulse or not breathing attempt CPR/CODE. -Call Rapid Response if patient is in distress. Care Teams Compact Assembler Relationship Specialty Start Date End Date Dyana Barron, DO [address] [place] [address] [place] [address] PCP - General Family Medicine 01/28/25
--- OUTSIDE RECORDS SUMMARY | 2025-03-19 16:22 | XMS_ITS | Clinical Summary ---
Author Organization Healthcare Address [address] [place] [address] Care Team Providers Care Grocery Worker Name Role Phone Pcp, No Primary Care Provider Unavailabl e Allergies No known active allergies Medications doxycycline (Adoxa) 100 MG tablet Take 1 tablet (100 mg) by mouth 2 (two) times a day. Take with a full glass of water and do not lie down for at least 30 minutes after 6 tablet 3 Active meclizine (Antivert) 25 MG tablet 4 Active dicyclomine (Bentyl) 10 mg split tablet 3 Active mupirocin (Bactroban) 2 % ointment 4 Active norethindrone-e thinyl estradiol (Microgestin 10/21) 1-20 MG-MCG tablet Take 1 tablet by mouth 1 (one) time each day. Active EPINEPHrine (Epipen) 0.3 MG/0.3ML injection syringe Take 1 auto as needed by injection route as directed for 28 days. Active Active Problems No known active problems Family History Medical History Relation Name Comments Fibromyalgia Maternal Grandmother Breanna Anxiety disorder Mother Missy Migraines Mother Missy Relation Name Status Comments Maternal Grandmother Breanna Mother Missy Social History Tobacco Use Types Packs/Day Years Used Date Smoking Tobacco: Never Smokeless Tobacco: Never Tobacco Cessation:Counseling Given: Not Answered Alcohol Use Standard Drinks/Week Comments Never 0 (1 standard drink = 0.6 oz pur e alcohol) Comments Unknown Sex and Gender Information Value Date Recorded Sex Assigned at Not on file Legal Sex Female 6:49 PM EDT Gender Identity Not on file Sexual Orientation Not on file Last Filed Vital Signs Vital Sign Reading Time Taken Comments Blood Pressure 93/57 12/11/2024 2:37 AM EDT Pulse 91 12/11/2024 2:37 AM EDT Temperature 36.4 C (97.5 F) 12/11/2024 2:37 AM EDT Respiratory Rate 16 12/11/2024 2:37 AM EDT Oxygen Saturation 96% 12/11/2024 2:37 AM EDT Inhaled Oxygen Concentration - - Weight 54.9 kg (121 lb) 11/07/2023 4:00 PM EST Height 158.8 cm (5' 2.5 ) 11/07/2023 4:00 PM EST Body Mass Index 21.78 11/07/2023 4:00 PM EST Body Mass Index Percentile 54.52% 11/07/2023 4:0 0 PM EST Growth Chart: [facility][NOTE 3] (Girls, 2- 20 Years) Plan of Treatment Health Maintenance Due Date Last Done Comments [facility]-Chlamydia and Gonorrhea Screening 2005 [facility]-Depression Screening 2005 [facility]-/Child/Adol SDOH Screenings 2005 Fluoride Varnish 01/10/2006 [facility]-Varicella Vaccines (1 of 2 - 13+ 2-dose series) 2018 HPV Vaccines (1 - 3-dose series) 2020 [facility]- SDOH Screenings 2023 [facility]-Adult SDOH Screenings 2023 [facility]-DTaP,Tdap,and Td Vaccines (1 - Tdap) 2024 [facility]-Hepatitis B Vaccines (1 of 3 - 19+ 3-dose series) 2024 [id number]-27 Vaccine (1 - 2023- season) 2024 [facility]-Influenza Vaccine (Season Ended) 2025 [facility]-Zoster Vaccines (1 of 2) 2055 [facility]-HIV Screening Completed 12/10/2024, 06/24/2023 [facility]-Hepatitis C Screening Completed 2024, 06/24/2023 [facility]-HIB Vaccines Aged Out No longer e ligible based on patient's age to complete this topic [facility]-Hepatitis A Vaccines Aged Out No longer eligible based on patient's age to complete this topic [facility]-IPV Vaccines Aged Out No longer e ligible based on patient's age to complete this topic [facility]-Pneumococcal Vaccine: Pediatrics (0 to 5 Years) and At-Risk Patients (6 to 49 Years) Aged Out No longer eligible b ased on patient's age to complete this topic [facility]-Rotavirus Vaccines Aged Out No lo nger eligible based on patient's age to complete this topic Procedures Procedure Name Priority Date/Time Associated Diagnosis Comments HEPATITIS C ANTIBODY - ED W/REFLEX TO HCV QUANT PCR STAT 12/10/2024 11:07 PM EDT ED HIV 1/2 ANTIBODY/ANTIGEN SCREEN WITH REFLEX TO HIV I/II DIFFERENTIATION STAT 12/10/2024 11:07 PM EDT from Last 3 Months or Most Recently Relevant to Health Maintenance Results * ED HIV 1/2 Antibody/Antigen Screen w/Reflex to HIV 1/2 Differentiation (12/10/2024 11:07 PM EDT) HIV 1 & 2 Antibody/Antigen Screen Non Reactive Non Reactive 12/11/2024 12:03 AM EDT [facility] Comment:Screening for HIV 1 & 2 antibodies, and P24 antigen is NONREACTIVE. No confirmatory testing is required. Blood Venous blood specimen / Unknown Venipuncture / Unknown 12/10/2024 11:07 PM EDT 12/10/2024 11:23 PM EDT Antonio Cooper MD LAB BLOOD ORDERABLES Final Result Performing Organization Address City/State/[facility] Co de Phone Number [facility] [address] [place] [address] * Hepatitis C Antibody - ED (12/10/2024 11:07 PM EDT) Hepatitis C Antibody Negative Negative 12/11/2024 12:03 AM EDT [facility] Blood Venous blood specimen / Unknown Venipuncture / Unknown 12/10/2024 11:07 PM EDT 12/10/2024 11:23 PM EDT Antonio Cooper MD LAB BLOOD ORDERABLES Final Result [facility] [address] [place] [address] from Last 3 Months or Most Recently Relevant to Health Maintenance Insurance [facility] Automatic Agency [employer] Care Teams Grocery Worker Relationship Specialty Start Date End Date Pcp, No [address] [place] [address] PCP - General Family Medicine 06/24/23
--- OUTSIDE RECORDS SUMMARY | 2025-03-19 16:22 | XMS_ITS | Clinical Summary ---
Author Organization [employer] Address [address] [place] [address] Care Team Providers Care Supervisor Electronics Testing Name Role Phone Dyana Barron Primary Care Provider Allergies No known active allergies Medications EPINEPHrine [...] 07/14/2023 Weakness of both lower extremities 06/20/2023 Encounters Date Type Department Care Team Description 02/26/2025 2:00 PM EDT Initial Consult [facility] [address] [place] [address] Wally Cartagena MD Combs, Pamela A, MD Hypersomnia; Nocturnal dyspnea; Parasomnia, unspecified type; Poor sleep hygiene 02/26/2025 Travel 02/19/2025 2:45 PM EDT Office Visit [facility] Pulmonology - [facility] [address] [facility] [facility] [address] [place] [address] Wally Cartagena MD Mild intermittent asthma without complication (Primary Dx); Wheezing 02/13/2025 12:30 PM EDT - 02/13/2025 11:59 PM EDT Hospital Encounter [facility] Pulmonary Lab 1 [place] [id number] Wally Cartagena MD Shortness of breath Discharge Disposition: Home or Self Care 02/13/2025 Travel 01/28/2025 1:00 PM EDT Office Visit [facility] Pulmonology [facility] [address] [facility] [address] [place] [address] Wally Cartagena MD HAWA (obstructive sleep apnea) (Primary Dx); Shortness of breath; Wheezing; Other fatigue 01/28/2025 Travel from Last 3 Months Family History Medical History Relation Name Comments Diabetes Maternal Grandfather Cancer Maternal Grandmother Relation Name Status Comments Maternal Grandfather Maternal Grandmother Social History Tobacco Use Types Packs/Day Years [...] Patient Health Questionnaire-2 Score 0 06/20/2023 [facility] - Occupational Stress [...] Date Jayce rded Speak language other than Tajik at home Not on file 10/20/2023 Want [...] Description 03/24/2025 8:30 PM EDT Procedure Visit [facility] [address] [address] Julianne Pantoja MD [address] [address] 05/21/2025 2:30 PM EDT Office Visit [facility] [address] [address] Julianne Pantoja MD [address] [place] [address] 05/22/2025 2:30 PM EDT Office Visit [facility] Pulmonology - [address] [place] [address] Wally Cartagena MD [address] [place], [place] [id number] Health Maintenance Due Date Last Done Comments Depression Screening (12+) 2017 Meningococcal B Vaccine (1 of 2 - Standard) 2021 Hepatitis C Screening 2023 DTAP/TDAP/TD VACCINES (1 - Tdap) 2024 Pneumococcal Vaccine: 0-49 Years (1 of 2 - PCV) 2023 COVID-19 VACCINE ( - season) 2024 Influenza Vaccine (Season Ended) 2025 Tobacco Cessation Counseling and Screening (12+) 02/2602/26/2025 HIV Screening Completed 06/22/2023 Procedures Procedure Name Priority Date/Time Associated Diagnosis Comments [place] CO DIFFUSING CAPACITY Routine 02/13/2025 2:14 PM [...] Antigen Nonreactive Nonreactive 06/22/2023 4:43 AM EDT [facility] Comment: The Combo HIV procedure [...] 3:08 AM EDT 06/22/2023 3:16 AM EDT Ronal Purcell MD LAB BLOOD ORDERABLES Final R esult [facility] [address] [place] [id number], [facility] [phone] from Last 3 Months or Most Recently Relevant to Health Maintenance Insurance [employer] MEDICA[employer] Advance Directives For more information, please contact: [phone] * Full Code (Latest Code Status on File) Date Activated Date Inactivated Comments 06/20/2023 1:53 AM 06/24/2023 4:52 PM -Attempt Res uscitation if person has no pulse and is not breathing. -If no pulse or not breathing attempt CPR/CODE. -Call Rapid Response if patient is in distress. Care Teams Supervisor Electronics Testing Relationship Specialty Start Date End Date Dyana Barron DO [address] [facility] [place] [address] [place] [address] PCP - General Family Medicine 01/28/25
[2025-03-19 16:35] LABS: C-Reactive Protein 9.7 mg/L (0-4)
[2025-03-20 15:56] LABS: Anti-Centromere B Antibodies <0.2 AI (0.0-0.9); Anti-DNA (DS) Ab Qn <1 IU/mL (0-9); Anti-Jo-1 <0.2 AI (0.0-0.9); Anti-Smith Antibody <0.2 AI (0.0-0.9); Antichromatin Antibodies <0.2 AI (0.0-0.9); Antiscleroderma-70 Antibodies <0.2 AI (0.0-0.9); RNP Antibodies <0.2 AI (0.0-0.9); Sjogren's Anti-SS-A <0.2 AI (0.0-0.9); Sjogren's Anti-SS-B <0.2 AI (0.0-0.9); Smith/RNP Antibodies <0.2 AI (0.0-0.9)
== END 2025-03-19 23:59 | disposition home or self-care (01) ==
LOC: LAB.DROPOF 16:19
PROVIDERS: PCP Internal Medicine; Visit Provider Internal Medicine
DX: M25.50 Pain in unspecified joint (principal); R10.11 Right upper quadrant pain
CPT/HCPCS: 83690; 86140; 86225; 86235

== ENCOUNTER 2025-03-27 14:08 | Outpatient (CLI) | payer MEDICAID, SELFPAY ==
--- OUTSIDE RECORDS SUMMARY | 2025-01-28 13:00 | XMS_ITS | Encounter Summary ---
Author Organization [employer] Address [address] [place] [address] Care Team Providers Care Supervisor Shop Name Role Phone Jcarlos Barronlylorraine Ferguson DO Primary Care Provider Reason for Referral * Consultation (Routine) - Closed Specialty Diagnoses / Procedures Referred By Contac t Referred To Contact Sleep Medicine Diagnoses HAWA (obstructive sleep apnea) Wally Cartagena MD [address] [facility] [address] [place] [address] Phone: tel: fax: Julianne Pantoja MD [address] [facility] [address] [place] [address] Phone: tel: fax: Referral ID Status Reason Start Date Expiration Date V isits Requested Visits Authorized [id number] Closed Specialty Services Required 01/28/2025 01/28/2026 1 1 * Surgical (Routine) - Closed Specialty Diagnoses / Procedures Referred By Contac t Referred To Contact Pulmonology Diagnoses Shortness of breath Procedures Pulmonary Function Testing PFT and MCT Wally Cartagena MD [address] [facility] [address] [place] [address] Phone: tel: fax: [facility] [address] [place] [phone] Phone: tel: fax: Referral ID Status Reason Start Date Expiration Date Visits Re quested Visits Authorized [id number] Closed 02/04/2025 02/04/2026 1 1 Reason for Visit * Reason Comments Shortness of Breath Cough Chest Pain New patient here tod ay for NULL Encounter Details Date Type Department Care Team (Late st Contact Info) Description 01/28/2025 1:00 PM EDT Office Visit [facility] Pulmonology - [address] [place] [address] Wally Cartagena MD [address] [place] [address] HAWA (obstructive sleep apnea) (Primary [...] Recorded Patient Health Questionnaire-2 Score 0 06/20/2023 [facility] of Occupat ional Health - [...] place to sleep or slept in a care home (including now)? No 06/24/2023 [facility] Intimate Partner [...] Date Jayce rded Speak language other than Syrian at home Not on file 10/20/2023 Want [...] She went to cardiology Dr Duarte at [place], [place] Patient had extensive workup including echocardiogram, [...] 500 MG tablet, , Disp: , Rfl: vmlzsiyo-cuodxxknu-fihrjpacfrfbwg (CORTISPORIN) 3.5-10,000-1 mg/mL-unit/mL-% otic suspension, SHAKELIQUID AND [...] 30 min Stress: Stress Concern Present (06/20/2023) [facility] of Occupational Health - Occupational Stress Questionnaire [...] this encounter was dictated with an electronic engravings polisher spoken language to printed text. Electronic engravings polisher of the spoken language can lead to [...] Care Team (Late st Contact Info) Description 05/21/2025 2:30 PM EDT Office Visit [facility] [address] [facility] [address] [place] [address] Julianne Pantoja MD [address] [facility] [address] [place] [address] 05/22/2025 2:30 PM EDT Office Visit [facility] Pulmonology - [address] [place] [phone] Wally Cartagena MD [address] [facility] [address] [place] [address] Scheduled Referrals Name Type Priority Associated Diagnoses [...] breath documented in this encounter Care Teams Supervisor Shop Relationship Specialty Start Date End Date Dyana Barron DO [address] [facility] [place] [address] PCP - General Family Medicine 01/28/25 documented as of this encounter
--- OUTSIDE RECORDS SUMMARY | 2025-02-13 12:30 | XMS_ITS | Encounter Summary ---
Author Organization [employer] Address [address] [place] [address] Care Team Providers Care Employment Evaluator/Case Manager Name Role Phone Dyana Barron DO Primary Care Provider Reason for Referral * Surgical (Routine) - Closed Specialty Diagnoses / Procedures Referred By Contac t Referred To Contact Pulmonology Diagnoses Shortness of breath Procedures Pulmonary Function Testing PFT and MCT Wally Cartagena MD [address] [facility] 210 [place] [address] Phone: tel: fax: [facility] Lab 1 [place] [address] Phone: tel: fax: Referral ID Status Reason Start Date Expiration Date Visits Re quested Visits Authorized [id number] Closed 02/04/2025 02/04/2026 1 1 Reason for Visit * Surgical (Routine) - Closed Specialty Diagnoses / Procedures Referred By Contac t Referred To Contact Pulmonology Diagnoses Shortness of breath Procedures Pulmonary Function Testing PFT and MCT Wally Cartagena MD [address] [facility] [address] [place] [address] Phone: tel: fax: [facility] 1 [place] [address] Phone: tel: fax: Referral ID Status Reason Start Date Expiration Date Visits Re quested Visits Authorized [id number] Closed 02/04/2025 02/04/2026 1 1 Encounter Details Date Type Department Care Team (Latest Contact Info) Description 02/13/2025 12:30 PM EDT - 02/13/2025 11:59 PM EDT Hospital Encounter [facility] Pulmonary Lab 1 [place] [address] Wally Cartagena MD [address] [place] [address] Shortness of breath Discharge Disposition: Home or Self Care Social History Tobacco Use Types Packs/Day Years [...] Recorded Patient Health Questionnaire-2 Score 0 06/20/2023 [facility] [place] [facility] - Occupational Stress [...] money to buy more. Never true 06/20/20 Within the past 12 months, t he [...] place to sleep or slept in a penitentiary (including now)? No 06/24/2023 [facility] [...] Date Jayce rded Speak language other than Tristanian at home Not on file 10/20/2023 Want [...] on file documented as of this encounter Medications at Time of Discharge albuterol 90 mcg/actuation inhaler Inhale by mouth every 6 (six) hours as needed for wheezing. amitriptyline (ELAVIL) 10 MG tablet atogepant (Qulipta) 10 mg tab Take 1 tablet every day by oral route for 90 days. 07/10/2024 cyclobenzaprine (FLEXERIL) 5 MG tablet TAKE 1 TABLET ORAL ROUTE 3 TIMES PER DAY NEEDED dicyclomine (BENTYL) 10 MG capsule Take 1 capsule (10 mg total) by mouth 3 (three) times daily as needed. diltiazem (Tiadylt ER) 120 MG 24 hr capsule 120 MG ORALLY TWICE A DAY FOR 90 DAYS doxycycline (ADOXA) 100 MG tablet EPINEPHrine (EPIPEN) 0.3 mg/0.3 mL Take 1 auto as needed by injection route as directed for 28 days. Estarylla 0.25-35 mg-mcg per tablet Take 1 tablet by mouth daily. 11/19/2024 hydrOXYzine (ATARAX) 25 MG tablet TAKE 1 TABLET BY MOUTH EVERY DAY BY MOUTH NEEDED. levalbuterol (XOPENEX HFA) 45 mcg/actuation inhalerIndicatio ns:Shortness of breath,Wheezing Inhale 1-2 puffs by mouth every 4 (four) hours as needed for wheezing or shortness of breath. 1 Inhaler 2 01/28/2025 meclizine (ANTIVERT) 25 mg tablet Take 1 tablet (25 mg total) by mouth 2 (two) times daily as needed. SUMAtriptan (IMITREX) 25 MG tablet TAKE 1 TAB BY MOUTH AT ONSET OF MIGRAINE MAY REPEAT IN 2 HRS IF HEADACHE RETURNS MAX 200MG IN 24HRS fluconazole (DIFLUCAN) 150 MG tablet Take 1 tablet (150 mg total) by mouth daily. 5 metroNIDAZOLE (FLAGYL) 500 MG tablet 12/11/2024 5 neomycin-polymyx in-hydrocortison e (CORTISPORIN) 3.5-10,000-1 mg/mL-unit/mL-% otic suspension SHAKE LIQUID AND INSTILL 4 DROPS TO AFFECTED EAR THREE TIMES DAILY 5 norethindrone-et hinyl estradiol (MICROGESTIN 10/21) 1-20 mg-mcg per tablet Take 1 tablet by mouth daily Take continuously without placebo. 5 documented as of this encounter Plan of Treatment Upcoming Encounters Date Type Department Care Team (Late st Contact Info) Description 05/21/2025 2:30 PM EDT Office Visit [facility] [place] [address] [facility] [address] [place] [address] Julianne Pantoja MD [address] [facility] [address] [place] [address] 05/22/2025 2:30 PM EDT Office Visit [facility] Pulmonology - [address] [place] [id number] Wally Cartagena MD [address] [place] [address] documented as of this encounter Procedures Procedure Name Priority Date/Time Associated Diagnosis Comments [place] CO DIFFUSING CAPACITY Routine 02/13/2025 2:14 PM EDT Shortness of breath documented in this encounter Results * Pulmonary Function Testing [...] documented in this encounter Visit Diagnoses Diagnosis Shortness of breath documented in this encounter Administered Medications Inactive Administered Medications - up to 3 most recent administrations Medication Order MAR Action Action Date Dose Rate Site albuterol 2.5 mg /3 mL (0.083 %) nebulizer solution 2.5 mg 2.5 mg Once, nebulization, On Desirae 02/13/25 at 1400, For 1 dose, RESPIRATORY THERAPY TREATMENT , What is the respiratory therapy Modality? Small volume Nebulization Given 02/13/2025 1:52 PM EDT 2.5 mg methacholine chloride nebu 96.25 mg 96.25 mg Once (rounded from 90 mg), inhalation, On Desirae 02/13/25 at 1400, For 1 dose Given 02/13/2025 1:27 PM EDT 96.25 mg documented in this encounter Care Teams Employment Evaluator/Case Manager Relationship Specialty Start Date End Date Dyana Barron DO [address] [facility] [place] [address] PCP - General Family Medicine 01/28/25 documented as of this encounter
--- OUTSIDE RECORDS SUMMARY | 2025-02-19 14:45 | XMS_ITS | Encounter Summary ---
Author Organization [employer] Address [address] [place] [address] Care Team Providers Care Lens Blocker Name Role Phone Dyana Barron Primary Care Provider Reason for Visit * Reason Comments Shortness of Breath Patient here today f or a follow up Encounter Details Date Type Department Care Team (Late st Contact Info) Description 02/19/2025 2:45 PM EDT Office Visit [facility] Pulmonology - [address] [place] [address] Wally Cartagena MD [address] [place] [address] Mild intermittent asthma without complication (Primary Dx); [...] Recorded Patient Health Questionnaire-2 Score 0 06/20/2023 [facility] - Occupational Stress Questionnaire Answer Date [...] place to sleep or slept in a [facility] (including now)? No 06/24/2023 [facility] [...] Date Jayce rded Speak language other than [place]uran at home Not on file 10/20/2023 Want [...] She went to cardiology Dr Duarte at [place], [place] Patient had extensive workup including echocardiogram, [...] 30 min Stress: Stress Concern Present (06/20/2023) [facility] [place] [facility] - Occupational Stress Questionnaire [...] this encounter was dictated with an electronic arm maker spoken language to printed text. Electronic arm maker of the spoken language can lead to [...] 05/21/2025 2:30 PM EDT Office Visit [facility] [address] [facility] [address] [place] [address] Julianne Pantoja MD [address] [facility] [address] [place] [address] 05/22/2025 2:30 PM EDT Office Visit [facility] Pulmonology - [address] [place] [address] Wally Cartagena MD [address] [place] [address] documented as of this encounter Visit Diagnoses Diagnosis Mild intermittent asthma without complication- Primary Wheezing documented in this encounter Care Teams Lens Blocker Relationship Specialty Start Date End Date Dyana Barron DO [address] [facility] [place] [address] PCP - General Family Medicine 01/28/25 documented as of this encounter
--- OUTSIDE RECORDS SUMMARY | 2025-02-26 14:00 | XMS_ITS | Encounter Summary ---
Author Organization [employer] Address [address] [place] [address] Care Team Providers Care Supervisor Laundry Name Role Phone Dyana Barron DO Primary Care Provider Reason for Referral * Other (Routine) - Closed Specialty Diagnoses / Procedures Referred By Mallory neely Referred To Contact Sleep Medicine Diagnoses Hypersomnia Procedures POLYSOMNOGRAPHY Julianne Pantoja MD [address] [place] [address] Phone: tel: fax: [facility] [address] [place] [address] Phone: tel: fax: Referral ID Status Reason Start Date Expiration Date Visits Re quested Visits Authorized [id number] Closed 03/12/2025 03/12/2026 1 1 Reason for Visit * Reason Comments Sleep Study New eval * Consultation (Routine) - Closed Specialty Diagnoses / Procedures Referred By Mallory neely Referred To Contact Sleep Medicine Diagnoses HAWA (obstructive sleep apnea) Wally Cartagena MD [address] [facility] [address] [place] [address] Phone: tel: fax: Julianne Pantoja MD [address] [place] [address] Phone: tel: fax: Referral ID Status Reason Start Date Expiration Date V isits Requested Visits Authorized [id number] Closed Specialty Services Required 01/28/2025 01/28/2026 1 1 Encounter Details Date Type Department Care Team (Late st Contact Info) Description 02/26/2025 2:00 PM EDT Initial Consult [facility] [address] [facility] [address] [place] [address] Wally Cartagena MD [address] [place] [address] Julianne Pantoja MD [address] [facility] [address] [place] [address] Hypersomnia; Nocturnal dyspnea; Parasomnia, unspecified type; Poor sleep hygiene Social History Tobacco Use Types Packs/Day Years [...] Recorded Patient Health Questionnaire-2 Score 0 06/20/2023 [facility] of Occupat ional [facility] - Occupational Stress Questionnaire Answer Date [...] place to sleep or slept in a nursing home (including now)? No 06/24/2023 [facility] [...] Sign Reading Time Taken Comments Blood Pressure 116/61 02/26/2025 2:14 PM EDT Pulse 89 02/26/2025 2:14 PM EDT Temperature - - Respiratory Rate 16 02/26/2025 2:14 PM EDT Oxygen Saturation 98% 02/26/2025 2:14 PM EDT Inhaled Oxygen Concentration - - Weight 63.2 kg (139 lb 6.4 oz) 02/26/2025 2:14 P M EDT Height 160 cm (5' 3 ) 02/26/2025 2:14 PM EDT Body Mass Index 24.69 02/26/2025 2:14 PM EDT documented in this encounter Progress Notes * Dania Lauren - 02/26/2025 2:00 PM EDT Ess7 neck szie 15 * Julianne Pantoja MD - 02/26/2025 2:00 PM EDT Subjective: Patient ID: Lori Vora is a 19 y.o. female presenting for sleep evaluation HPI: Lori Vora comes in for sleep medicine consultation. She relates that she is sleepy during the day and has trouble functioning. She she also often has trouble falling asleep. She had a home sleep study performed a couple years ago for 3 nights that did not reveal sleep apnea at that time Her sleep schedule is irregular with most consistent wake up time. 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 She also has been staying up late because her boyfriend that does not have a ride and she helps him with his transportation. She wakes up 2 or 3 times through the night. She will rarely nap. Her head takes her sometimes between 30 minutes to an hour to fall asleep. Her [place] score is 7-8. But she relates that she is fatigued and tired all day. She wakes up with a dry mouth and wakes up short of air choking coughing. She has a sore throat when she wakes up. She occasionally will have a morning headache. Snoring is not reported but she is not sure that her best history is reliable. She does have heartburn symptoms at night. She is drowsy throughout the day and this is her predominant problem. She does doze off to sleep ifshe is sitting quietly at rest. No sleep paralysis or hypnagogic hallucination. She sometimes has pain at night. She says difficulty falling asleep and staying asleep but is less likely through the day. She has discomfort in her legs in the evenings. She has had sleepwalking more as a child. She talks in her sleep. She has frequent nightmares. She grinds her teeth at night. She states that she has been told she moves her arms and legs in bed as if she is acting out her dreams but does not get out of bed and walk around PAST MEDICAL HISTORY-drink asthma, migraine, POTS, UTI, fatigue, ear tubes, tachycardia FAMILY MEDICAL HISTORY-grandfather had diabetes REVIEW OF SYSTEMS-multiple positive responses details reviewed. Continue follow- up with primary care. Pertinent as above. She also has fatigue and night sweats noted SOCIAL HISTORY-she does not smoke cigarettes or use alcohol. She drinks 1-2 caffeinated teas daily. HISTORY FROM BED PARTNER-snoring and apneas have not been noted she does get her legs and arms at night. She does not sleepwalk or sleep talk. She used to sleep for quite a bit. She states that her bed partner is a heavy sleeper and generally would not be aware of anything that happens with her. She questions is history. ROOMING DATA AND PAST HISTORY REVIEWED-I have reviewed notes of pulmonary medicine from 02/19/2025, family medicine 12/09/2024, lab work 06/21/2023 with CBC and CMP. Extensive medicine list reviewed. Problem list reviewed Objective: PHYSICAL EXAM Vital signs: BP: 116/61 - - Pulse: 89 - Resp: 16 - SpO2: 98 % Body mass index is 24.69 kg/m??. GENERAL-Patient is alert and appropriate and in no distress. EYES- reveal pupils equal and round, sclera clear ENT- symmetric, no perioral cyanosis Mallampati 3 NECK- supple, neck veins flat RESP- symmetric chest expansion with no congestion or labored breathing EXT- gait symmetric SKIN- no clubbing or cyanosis Assessment: ICD-10-CM ICD-9-CM 1. Hypersomnia G47.10 780.54 POLYSOMNOGRAPHY 2. Nocturnal dyspnea R06.00 786.02 3. Parasomnia, unspecified type G47.50 307.47 Ambulatory referral to Sleep Medicine 4. Poor sleep hygiene Z72.821 307.49 Plan: Based on the patient's history and physical exam there is concern for sleep disorder breathing. We discussed whether to do an in lab or home study. Considering all factors, plan as below I discussed the physiological implications of obstructive sleep apnea and I discussed the health benefits associated with treatment if indicated by testing. We discussed treatment options including PAP therapy. Driving risk reviewed, sedation avoidance. I reviewed with the patient healthy sleep habits with instructions given. The importance of a fixedwake up time with sunlight exposure thereafter to promote their circadian rhythm. I discussed the benefits of a healthy sleep environment. We discussed absolutely no drowsy driving. Good sleep hygiene measures including maintaining a constant wake up and sleep time, plenty of sunshine early in the d ay, dim lights near bedtime, avoid naps, create a good sleep environment, watch out for substances that may affect sleep (caffeine,alcohol,nicotine). She failed as home sleep study without diagnosis. Will consider PSG and possibly MSLT later if she fails to improve with time. I have had a long discussion of sleep hygiene she is given written instruction is to get on a regular schedule. I have asked her to have a polysomnogram. She describes episodes of possibly acting out her dreams as if RBD however this is not clear. She just has arm and legmovements that her bed partner thought might be dream activity. She does not get out of bed. This is not every night. Return in about 3 months (around 05/29/2025) for Recheck. Orders Placed This Encounter Procedures POLYSOMNOGRAPHY documented in this encounter Plan of Treatment Upcoming Encounters Date Type Department Care Team (Late st Contact Info) Description 05/21/2025 2:30 PM EDT Office Visit [facility] [address] [place] [address] Julianne Pantoja MD [address] [place] [address] 05/22/2025 2:30 PM EDT Office Visit [facility] Pulmonology - [address] [place] [id number] Wally Cartagena MD [address] [place], [place] [id number] documented as of this encounter Results * POLYSOMNOGRAPHY (03/25/2025 6:35 AM EDT) Anatomical Region Laterality Modality Other Narrative 03/27/2025 8:05 PM EDT Please see results of the sleep study attached to the sleep study order. The result is also scanned into media. us Julianne Pantoja MD SLEEP CENTER ORDERABLES Final Result documented in this encounter Visit Diagnoses Diagnosis Hypersomnia Hypersomnia, unspecified Nocturnal dyspnea Orthopnea Parasomnia, unspecified type Poor sleep hygiene Other specific disorder of sleep of nonorganic origin Hypersomnia Hypersomnia, unspecified documented in this encounter Care Teams Supervisor Laundry Relationship Specialty Start Date End Date Dyana Barron DO [address] [facility] [place] [address] PCP - General Family Medicine 01/28/25 documented as of this encounter
--- OUTSIDE RECORDS SUMMARY | 2025-03-24 20:30 | XMS_ITS | Encounter Summary ---
Author Organization [facility] In iatives Address [address] [place] [address] Care Team Providers Care Oil Prospecting Observer Name Role Phone Dyana Barron DO Primary Care Provider Reason for Visit * Other (Routine) - Closed Specialty Diagnoses / Procedures Referred By Mallory neely Referred To Contact Sleep Medicine Diagnoses Hypersomnia Procedures POLYSOMNOGRAPHY Julianne Pantoja MD 160 [facility] [address] [place] [address] Phone: tel: fax: [facility] 160 [facility] [address] [place] [phone] Phone: tel: fax: Referral ID Status Reason Start Date Expiration Date Visits Re quested Visits Authorized [id number] Closed 03/12/2025 03/12/2026 1 1 Encounter Details Date Type Department Care Team (Late st Contact Info) Description 03/24/2025 8:30 PM EDT Procedure Visit [facility] [address] [address] Julianne Pantoja MD [address] [address] Hypersomnia Social History Tobacco Use [...] Score 0 06/20/2023 [facility] Questionnaire Answer Date [...] place to sleep or slept in a snf (including now)? 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 Went over insurance authorization information with patient documented in this encounter Progress Notes * Corry Vidal - 03/24/2025 8:30 PM EDT Testing complete documented in this encounter Plan of Treatment Upcoming Encounters Date Type Department Care Team (Late st Contact Info) Description 05/21/2025 2:30 PM EDT Office Visit [facility] 160 [facility] [address] [place] [address] Julianne Pantoja MD 160 [facility] [address] [place] [address] 05/22/2025 2:30 PM EDT Office Visit [facility] Pulmonology - [address] [place] [address] Wally Cartagena MD [address] [place] [address] documented as of this encounter Procedures Procedure [...] unspecified documented in this encounter Care Teams Oil Prospecting Observer Relationship Specialty Start Date End Date Dyana Barron DO [address] [facility] [place] [address] [place] [address] PCP - General Family Medicine 01/28/25 documented as of this encounter
--- OUTSIDE RECORDS SUMMARY | 2025-03-28 10:13 | XMS_ITS | Clinical Summary ---
Author Organization [employer] Address [address] [place] [address] Care Team Providers Care Data Examination Clerk Name Role Phone Dyana Barron Primary Care Provider Allergies No known active allergies Medications EPINEPHrine (EPIPEN) 0.3 mg/0.3 mL Take 1 auto as needed by injection route as directed for 28 days. Active amitriptyline (ELAVIL) 10 MG tablet Active atogepant (Qulipta) 10 mg tab Take 1 tablet every day by oral route for 90 days. 4 Active cyclobenzaprine (FLEXERIL) 5 MG tablet TAKE [...] tablet Take 1 tablet by mouth daily. 5 Active albuterol 90 mcg/actuation inhaler Inhale by mouth every 6 (six) hours as needed for wheezing. Active levalbuterol (XOPENEX HFA) 45 mcg/actuation inhalerIndication s:Shortness of breath,Wheezing Inhale 1-2 puffs by mouth every 4 (four) hours as needed for wheezing or shortness of breath. 1 Inhaler 2 5 Active acetaminophen (TYLENOL) 500 MG tablet TAKE 1 TABLET (500 MG) BY MOUTH EVERY 6 HOURS NEEDED FOR PAIN OR FEVER FOR UP TO 14 DAYS. Active ibuprofen (MOTRIN) 400 MG tablet TAKE 1 TABLET (400 MG) BY MOUTH EVERY 6 HOURS NEEDED FOR MILD PAIN OR FEVER FOR UP TO 14 DAYS. Active montelukast (SINGULAIR) 10 mg tabletIndications :Mild intermittent asthma without complication Take 1 tablet (10 mg total) by mouth nightly. 30 tablet 3 5 02/20/20 26 Active budesonide-formot Esperanza (Symbicort) 80-4.5 mcg/actuation inhalerIndication s:Mild intermittent asthma without complication Inhale 2 puffs by mouth 2 (two) times daily for 30 days. 1 Inhaler 6 5 03/21/20 25 Active Problems Problem Noted Date Diagnosed Date [...] Encounters Date Type Department Care Team Description 03/27/2025 Orders Only [facility] 160 [facility] [address] [place] [address] Julianne Pantoja MD Hypersomnia (Primary Dx) 03/24/2025 8:30 PM EDT Procedure Visit [facility] 160 [facility] [address] [place] [address] Julianne Pantoja MD Hypersomnia 02/26/2025 2:00 PM EDT Initial Consult [facility] 160 [facility] [address] [place] [address] Wally Cartagena MD Combs, Pamela A, MD Hypersomnia; Nocturnal dyspnea; Parasomnia, unspecified type; Poor sleep hygiene 02/26/2025 Travel 02/19/2025 2:45 PM EDT Office Visit [facility] Pulmonology - [facility] 211 [facility] [address] [place] [address] Wally Cartagena MD Mild intermittent asthma without complication (Primary Dx); Wheezing 02/13/2025 12:30 PM EDT - 02/13/2025 11:59 PM EDT Hospital Encounter Pulmonary Lab 1 [place] [address] Wally Cartagena MD Shortness of breath Discharge Disposition: Home or Self Care 02/13/2025 Travel 01/28/2025 1:00 PM EDT Office Visit [facility] Pulmonology [facility] 211 [facility] [address] [place] [address] Wally Cartagena MD HAWA (obstructive sleep apnea) [...] Recorded Patient Health Questionnaire-2 Score 0 06/20/2023 [facility] of Occupat ional Health - Occupational Stress [...] Date Jayce rded Speak language other than Turkmen at home Not on file 10/20/2023 Want [...] Description 05/21/2025 2:30 PM EDT Office Visit [facility] 160 [facility] [address] [place] [address] Julianne Pantoja MD 160 [facility] [address] [place] [address] 05/22/2025 2:30 PM EDT Office Visit [facility] Pulmonology - [address] [place] [address] Wally Cartagena MD [address] [place] [address] Health Maintenance Due Date Last Done Comments Depression Screening (12+) 2017 Meningococcal B Vaccine (1 of 2 - Standard) 2021 Hepatitis C Screening 2023 DTAP/TDAP/TD VACCINES (1 - Tdap) 2024 Pneumococcal Vaccine: 0-49 Years (1 of 2 - PCV) 2023 COVID-19 VACCINE (1 - season) 2024 Influenza Vaccine (Season Ended) 2025 Tobacco Cessation Counseling and Screening (12+) 02/2602/26/2025 HIV Screening Completed 06/22/2023 Procedures Procedure Name Priority Date/Time Associated Diagnosis Comments POLYSOMNOGRAPHY Routine 03/25/2025 6:35 AM EDT Hypersomnia PA CO DIFFUSING CAPACITY Routine 02/13/2025 2:14 PM EDT Shortness of breath HIV 1/2 AG/AB COMBO Routine 06/22/2023 3 :08 AM EDT from Last 3 Months or Most Recently Relevant to Health Maintenance Results * POLYSOMNOGRAPHY (03/25/2025 6:35 AM EDT) Anatomical Region Laterality Modality Other Narrative 03/27/2025 8:05 PM EDT Please see results of the sleep study attached to the sleep study order. The result is also scanned into media. us Julianne Pantoja MD SLEEP CENTER ORDERABLES Final Result * Pulmonary Function Testing (02/13/2025 2:14 PM [...] 1/2 AG/AB Combo (06/22/2023 3:08 AM EDT) [facility] HIV-1 P24 Antigen Nonreactive Nonreactive 06/22/2023 4:43 AM EDT [facility] Comment: The Combo HIV procedure [...] MD LAB BLOOD ORDERABLES Final R esult [facility] [id number], [facility] [phone] from Last 3 Months or Most Recently Relevant to Health Maintenance Insurance [employer] MEDICAID Advance Directives For more information, please contact: [phone] * Full Code (Latest Code Status on File) Date Activated Date Inactivated Comments 06/20/2023 1:53 AM 06/24/2023 4:52 PM -Attempt Res uscitation if person has no pulse and is not breathing. -If no pulse or not breathing attempt CPR/CODE. -Call Rapid Response if patient is in distress. Care Teams Data Examination Clerk Relationship Specialty Start Date End Date Dyana Barron DO [address] [place] [address] [place] [address] PCP - General Family Medicine 01/28/25
--- OUTSIDE RECORDS SUMMARY | 2025-03-28 10:13 | XMS_ITS | Referral Summary ---
Author Organization [employer] In iatives Address [address] [place] [address] Care Team Providers Care Burglar Alarm Installer Name Role Phone Dyana Barron Primary Care Provider Encounters Date Type Department Care Team Description 03/27/2025 Orders Only [facility] 160 [facility] [address] [place] [address] Julianne Pantoja MD Hypersomnia (Primary Dx) 03/24/2025 8:30 PM EDT Procedure Visit [facility] 160 [facility] [address] [place] [address] Julianne Pantoja MD Hypersomnia 02/26/2025 Travel 02/26/2025 2:00 PM EDT Initial Consult [facility] 160 [facility] [address] [place] [address] Wally Cartagena MD Combs, Pamela A, MD Hypersomnia; Nocturnal dyspnea; Parasomnia, unspecified type; Poor sleep hygiene 02/19/2025 2:45 PM EDT Office Visit [facility] Pulmonology - [address] [place] [address] Wally Cartagena MD Mild intermittent asthma without complication (Primary Dx); Wheezing 02/13/2025 Travel 02/13/2025 12:30 PM EDT - 02/13/2025 11:59 PM EDT Hospital Encounter [facility] Pulmonary Lab [address] [place] [address] Wally Cartagena MD Shortness of breath Discharge Disposition: Home or Self Care 01/28/2025 Travel 01/28/2025 1:00 PM EDT Office Visit [facility] Pulmonology - [address] [place] [address] Wally Cartagena MD [place] (obstructive [...] Recorded Patient Health Questionnaire-2 Score 0 06/20/2023 [facility] [place] of Occupat ional Health - Occupational Stress [...] place to sleep or slept in a prison (including now)? No 06/24/2023 [facility] [...] Date Jayce rded Speak language other than Danish at home Not on file 10/20/2023 Want [...] Description 05/21/2025 2:30 PM EDT Office Visit [facility] 160 [facility] [address] [place] [address] Julianne Pantoja MD 160 [facility] [address] [place] [address] 05/22/2025 2:30 PM EDT Office Visit [facility] Pulmonology - [address] [place] [address] Wally Cartagena MD [address] [place], [place] [address] Procedures Procedure Name Priority Date/Time Associated Diagnosis Comments POLYSOMNOGRAPHY Routine 03/25/2025 6:35 AM EDT Hypersomnia DC CO DIFFUSING CAPACITY Routine 02/13/2025 2:14 PM [...] 1/2 AG/AB Combo (06/22/2023 3:08 AM EDT) Pathologist [facility] HIV-1 P24 Antigen Nonreactive Nonreactive 06/22/2023 4:43 AM EDT [facility] Comment: The Combo HIV procedure is [...] MD LAB BLOOD ORDERABLES Final R esult [facility] [address] [phone] from Last 3 Months or Most Recently Relevant to Health Maintenance Insurance [employer] MEDICAID Advance Directives For more information, please contact: [phone] * Full Code (Latest Code Status on File) Date Activated Date Inactivated Comments 06/20/2023 1:53 AM 06/24/2023 4:52 PM -Attempt Res uscitation if person has no pulse and is not breathing. -If no pulse or not breathing attempt CPR/CODE. -Call Rapid Response if patient is in distress. Care Teams Burglar Alarm Installer Relationship Specialty Start Date End Date Dyana Barron DO 200 [facility] [place] [address] [place] [address] PCP - General Family Medicine 01/28/25
--- OUTSIDE RECORDS SUMMARY | 2025-03-28 10:15 | XMS_ITS | Encounter Summary ---
Author Organization [facility] [employer] In iatives Address [address] [place] [address] Care Team Providers Care Heating And Cooling Systems Engineer Name Role Phone Dyana Barron DO Primary Care Provider Reason for Referral * Other (Routine) - New Request Specialty Diagnoses / Procedures Referred By Contdouglas t Referred To Contact Sleep Medicine Diagnoses Hypersomnia Procedures MULTIPLE SLEEP LATENCY TEST Julianne Pantoja MD [address] [place] [address] Phone: tel: fax: [facility] [address] [place] [phone] Phone: tel: fax: Referral ID Status Reason Start Date Expiration Date V isits Requested Visits Authorized [id number] New Request 04/10/2025 04/10/2026 1 1 * Other (Routine) - Pending Review Specialty Diagnoses / Procedures Referred By Contdouglas t Referred To Contact Sleep Medicine Diagnoses Hypersomnia Procedures POLYSOMNOGRAPHY Julianne Pantoja MD [address] [place] [address] Phone: tel: fax: [facility] [address] [place] [phone] Phone: tel: fax: Referral ID Status Reason Start Date Expiration Date V isits Requested Visits Authorized [id number] Pending Review 04/10/2025 04/10/2026 1 1 Encounter Details Date Type Department Care Team (Late st Contact Info) Description 03/27/2025 Orders Only [facility] [address] [facility] [address] [place] [address] Julianne Pantoja MD [address] [facility] [address] [place] [address] Hypersomnia (Primary Dx) Social History Tobacco Use Types Packs/Day Years [...] Recorded Patient Health Questionnaire-2 Score 0 06/20/2023 [facility] of Occupat ional [facility] - Occupational Stress Questionnaire Answer Date [...] place to sleep or slept in a fci (including now)? No 06/24/2023 [facility] [...] on file documented as of this encounter Progress Notes * Julianne Pantoja MD - 03/27/2025 8:04 PM EDT MSLT documented in this encounter Plan of Treatment Upcoming Encounters Date Type Department Care Team (Late st Contact Info) Description 05/21/2025 2:30 PM EDT Office Visit [facility] [address] [place] [address] Julianne Pantoja MD [address] [place] [address] 05/22/2025 2:30 PM EDT Office Visit [facility] Pulmonology - [address] [place] [address] Wally Cartagena MD [address] [place], [place] [phone] Scheduled Orders Name Type Priority Associated Diagnoses Orde r Schedule POLYSOMNOGRAPHY Sleep Center Routine Hypersomnia Expected: 04/10/2025, Expires: 03/27/2026 MULTIPLE SLEEP LATENCY TEST Sleep Center Routine Hypersomnia Expected: 04/10/2025, Expires: 03/27/2026 documented as of this encounter Visit Diagnoses Diagnosis Hypersomnia- Primary Hypersomnia, unspecified documented in this encounter Care Teams Heating And Cooling Systems Engineer Relationship Specialty Start Date End Date Dyana Barron DO [address] [place] [address] [place] [address] PCP - General Family Medicine 01/28/25 documented as of this encounter
--- OUTSIDE RECORDS SUMMARY | 2025-03-28 10:15 | XMS_ITS | Clinical Summary ---
Author Organization [facility] Address [address] [facility] [address] [place] [address] Phone Care Team Providers Care Technology Architect Name Role Phone Unavailable Unavailable Conditions or Problems No information available. Medications No information available. Medications Administered No information available. Allergies, Adverse Reactions, Alerts No information available. Results No information available. Plan of Care No information available. Procedures No information available. Vital Signs No information available. Immunizations No information available. Advance Directives No information available.
--- OUTSIDE RECORDS SUMMARY | 2025-03-28 10:15 | XMS_ITS | Clinical Summary ---
Author Organization Healthcare Address [address] [place] [address] Care Team Providers Care Veterinary Pharmacologist Name Role Phone Pcp, No Primary Care [...] 4:0 0 PM EST Growth Chart: [facility] [place] (Girls, 2- 20 Years) Plan of Treatment [...] of 3 - 19+ 3-dose series) 2024 [id number] Vaccine (1 - 2023- season) 2024 UKY-Influenza [...] Reactive Non Reactive 12/11/2024 12:03 AM EDT [facility] Comment:Screening for HIV 1 & 2 antibodies, and P24 antigen is NONREACTIVE. No confirmatory testing is required. Blood Venous blood specimen / Unknown Venipuncture / Unknown 12/10/2024 11:07 PM EDT 12/10/2024 11:23 PM EDT Antonio Cooper MD LAB BLOOD ORDERABLES Final Result Performing Organization Address City/State/[facility] Co de Phone Number [facility] [address] [place] [address] * Hepatitis C Antibody - ED (12/10/2024 11:07 PM EDT) Hepatitis C Antibody Negative Negative 12/11/2024 12:03 AM EDT [facility] Blood Venous blood specimen / Unknown Venipuncture / Unknown 12/10/2024 11:07 PM EDT 12/10/2024 11:23 PM EDT Antonio Cooper MD LAB BLOOD ORDERABLES Final Result [facility] [address] [place] [address] from Last 3 Months or Most Recently Relevant to Health Maintenance Insurance [facility] [employer] MED[employer] Care Teams Veterinary Pharmacologist Relationship Specialty Start Date End Date Pcp, No [address] [place] [address] PCP - General Family Medicine 06/24/23
--- OUTSIDE RECORDS SUMMARY | 2025-03-28 10:16 | XMS_ITS | Encounter Summary ---
Author Organization [employer] Address [address] [place] [address] Care Team Providers Care Stationary Engineer Apprentice Name Role Phone Dyana Barron Primary Care [...] Recorded Patient Health Questionnaire-2 Score 0 06/20/2023 [facility] of Occupat ional [facility] - [...] place to sleep or slept in a retirement (including now)? No 06/24/2023 [facility] Intimate [facility] [...] Date Jayce rded Speak language other than Singaporean at home Not on file 10/20/2023 Want [...] Description 05/21/2025 2:30 PM EDT Office Visit [facility] [address] [facility] [address] [place] [address] Julianne Pantoja MD 160 [facility] [address] [place] [address] 05/22/2025 2:30 PM EDT Office Visit [facility] Pulmonology - [address] [place] [address] Wally Cartagena MD [address] [place] [address] documented as of this encounter Visit Diagnoses Not on filedocumented in this encounter Care Teams Stationary Engineer Apprentice Relationship Specialty Start Date End Date Dyana Barron DO [address] [place] [address] [place] [address] PCP - General Family Medicine 01/28/25 documented as of this encounter
--- OUTSIDE RECORDS SUMMARY | 2025-03-28 10:16 | XMS_ITS | Encounter Summary ---
Author Organization [employer] Address [address] [place] [address] Care Team Providers Care Production Specialist Name Role Phone Dyana Barron Primary Care [...] Recorded Patient Health Questionnaire-2 Score 0 06/20/2023 [facility] of Occupat ional [facility] - Occupational Stress Questionnaire Answer Date Recorded [...] place to sleep or slept in a senior living (including now)? No 06/24/2023 [facility] Intimate Partner [...] Date Jayce rded Speak language other than Panamanian at home Not on file 10/20/2023 Want [...] 05/21/2025 2:30 PM EDT Office Visit [facility] [address] [facility] [address] [place] [address] Julianne Pantoja MD [address] [facility] [address] [place] [address] 05/22/2025 2:30 PM EDT Office Visit [facility] Pulmonology - [address] [place] [address] Wally Cartagena MD [address] [place] [address] documented as of this encounter Visit Diagnoses Not on filedocumented in this encounter Care Teams Production Specialist Relationship Specialty Start Date End Date Dyana Barron DO [address] [place] [place] [address] [place] [address] PCP - General Family Medicine 01/28/25 documented as of this encounter
--- OUTSIDE RECORDS SUMMARY | 2025-03-28 10:16 | XMS_ITS | Encounter Summary ---
Author Organization [employer] Address [address] [place] [address] Care Team Providers Care Architectural Sales Consultant Name Role Phone Dyana Barron Primary Care [...] Recorded Patient Health Questionnaire-2 Score 0 06/20/2023 [facility] - Occupational Stress Questionnaire Answer [...] place to sleep or slept in a halfway (including now)? No 06/24/2023 [facility] [...] Date Jayce rded Speak language other than [place] at home Not on file 10/20/2023 Want [...] Description 05/21/2025 2:30 PM EDT Office Visit [facility] [address] [facility] [address] [place] [address] Julianne Pantoja MD [address] [facility] [address] [place] [address] 05/22/2025 2:30 PM EDT Office Visit [facility] Pulmonology - [address] [place] [address] Wally Cartagena MD [address] [place] [address] documented as of this encounter Visit Diagnoses Not on filedocumented in this encounter Care Teams Architectural Sales Consultant Relationship Specialty Start Date End Date Dyana Barron DO [address] [place] [address] [place] [address] PCP - General Family Medicine 01/28/25 documented as of this encounter
== END 2025-03-27 23:59 | disposition home or self-care (01) ==
LOC: LAB.DROPOF 03-28 10:04
PROVIDERS: PCP Internal Medicine; Visit Provider Internal Medicine
DX: N39.0 Urinary tract infection, site not specified (principal)
CPT/HCPCS: 87086

== ENCOUNTER 2025-04-29 16:45 | Outpatient (CLI) | payer MEDICAID, SELFPAY ==
--- OUTSIDE RECORDS SUMMARY | 2025-03-24 20:30 | XMS_ITS | Encounter Summary ---
Author Organization [employer] ([place], [place], [place], [place]) Address [address] [place] [address] Care Team Providers Care Master [place] Name Role Phone Dyana Barron Phyllis Primary Care Provider Reason for Visit * Other (Routine) - Closed Specialty Diagnoses / Procedures Referred By Contac t Referred To Contact Sleep Medicine Diagnoses Hypersomnia Procedures POLYSOMNOGRAPHY Julianne Pantoja MD [address] [address] Phone: tel: fax: [facility] [address] [address] Phone: tel: fax: Referral ID Status Reason Start Date Expiration Date Visits Re quested Visits Authorized [id number] Closed 03/12/2025 03/12/2026 1 1 Encounter Details Date Type Department Care Team (Late st Contact Info) Description 03/24/2025 8:30 PM EDT Procedure Visit [facility] [address] [address] Julianne Pantoja MD [address] [address] Hypersomnia Social History Tobacco Use Types Packs/Day Years Used Date Smoking Tobacco: Never Smokeless Tobacco: Never Alcohol Use Standard Drinks/Week Comments Not Currently 0 (1 standard drink = 0.6 oz pur e alcohol) Overall Financial Resource Strain (CARDIA) Answe r Date Recorded How hard is it for you to pa y for the very basics like food, housing, medical care, and heating? Not hard at all 06/20/2023 Exercise Vital Sign Answer Date Recorde [...] of Transportation (Non-Medical) Not on file 06/24/2023 Transportation Needs Answer Date Record ed Transportation unreliable past 12 months Not on file 01/11/2024 Family and Community Support Answer Alvaro e Recorded Help with Day to Day Activities Not on file 10/20/2023 Feeling Lonely or Isolated Not on file 10/20 Educational Attainment Answer Date Jayce rded Speak language other than [place]otho at home Not on file 10/20/2023 Want help with school or training Not on file 10/20/2023 Substance Use Answer Date Recorded Used prescription meds for non-medical reasons N ot on file 10/20/2023 Used illegal drugs past 12 months Not on file 10/20/2023 Comments No Sex and Gender Information Value Date Recorded Sex Assigned at Not on file Legal Sex Female 5:29 PM CDT Gender Identity Not on file Sexual Orientation Not on file documented as of this encounter Patient Instructions * Patient Instructions* Tosha Jacob Yoav - 03/24/2025 8:30 PM EDT Reviewed in lab sleep study instructions and education with pt. Advised to have no caffeine after lunch day of study and no alcohol. Reviewed any special needs or disabilities the patient may have. Asked them to arrive clean and dry with no lotion or hair products. Encouraged them to wake up early on the day of the test and to not take a nap during the day. Instructed them to bring something comfo rtable to sleep in and nothing sink or satin. Reminded them to bring medication in the original bottle if planning to take in the lab and if they are taking a sleep aid they will need a driver's license reviewing officer in themorning. Went over insurance authorization information with patient documented in this encounter Progress Notes * Corry Vidal - 03/24/2025 8:30 PM EDT Testing complete documented in this encounter Plan of Treatment Upcoming Encounters Date Type Department Care Team (Late st Contact Info) Description 05/22/2025 8:30 PM EDT Procedure Visit [facility] [address] [facility] [address] [address] Julianne Pantoja MD [address] [facility] [address] [address] 05/23/2025 8:00 AM EDT Procedure Visit [facility] [address] [facility] [address] [address] Julianne Pantoja MD [address] [address] 06/11/2025 11:00 AM EDT Office Visit [facility] [address] [address] Julianne Pantoja MD [address] [facility] [address] [address] 10/22/2025 1:30 PM EST Office Visit [facility] Pulmonology - [address] [place] [address] Wally Cartagena MD [address] [place] [address] documented as of this encounter Procedures Procedure Name Priority Date/Time Associated Diagnosis Comments POLYSOMNOGRAPHY Routine 03/25/2025 6:35 AM EDT Hypersomnia documented in this encounter Results * POLYSOMNOGRAPHY (03/25/2025 6:35 AM EDT) Anatomical Region Laterality Modality Other Narrative 03/27/2025 8:05 PM EDT Please see results of the sleep study attached to the sleep study order. The result is also scanned into media. Procedure Note Julianne Pantoja MD - 03/27/2025 Please see results of the sleep study attached to the sleep study order.The result is also scanned into media. us Julianne Pantoja MD SLEEP CENTER ORDERABLES Final Result documented in this encounter Visit Diagnoses Diagnosis Hypersomnia Hypersomnia, unspecified documented in this encounter Care Teams Master [place] Relationship Specialty Start Date End Date Dyana Barron DO [address] [facility] [place] [address] [place] [address] PCP - General Family Medicine 01/28/25 documented as of this encounter
--- OUTSIDE RECORDS SUMMARY | 2025-04-21 15:00 | XMS_ITS | Encounter Summary ---
Author Organization [employer] ([place], [place], [place], [place]) Address [address] [place] [address] Care Team Providers Care Fruit Thinner Machine Operator Name Role Phone Dyana Barron Primary Care Provider Reason for Visit * Reason Comments Shortness of Breath Patient here today f or a 3 month F/U Encounter Details Date Type Department Care Team (Late st Contact Info) Description 04/21/2025 3:00 PM EDT Office Visit [facility] Pulmonology - [address] [place] [address] Wally Cartagena MD [address] [place] [address] Shortness of breath (Primary Dx); Mild intermittent asthma without complication Social History Tobacco Use Types Packs/Day Years [...] Date Jayce rded Speak language other than Latvian at home Not on file 10/20/2023 Want [...] Sign Reading Time Taken Comments Blood Pressure 116/71 04/21/2025 2:55 PM EDT Pulse 96 04/21/2025 2:55 PM EDT Temperature 36.7 C (98 F) 04/21/2025 2:55 PM EDT Respiratory Rate 16 04/21/2025 2:55 PM EDT Oxygen Saturation 98% 04/21/2025 2:55 PM EDT Inhaled Oxygen Concentration - - Weight 63 kg (139 lb) 04/21/2025 2:55 PM EDT Height 165.1 cm (5' 5 ) 04/21/2025 2:55 PM EDT Body Mass Index 23.13 04/21/2025 2:55 PM EDT documented in this encounter Progress Notes * Wally Cartagena MD - 04/21/2025 3:00 PM EDT CHIEF COMPLAINT: Chief Complaint Patient presents with Shortness of Breath Patient here today for a 3 month F/U HPI: This is a 19 y.o. patient who was referred in consultation for evaluation of breath. Patient statedthat she has been shortness of breath for 2 years associated with fatigue. She went to cardiology Dr Duarte at [place], [place] Patient had extensive workup including echocardiogram, [...] Her insurance did not approve for levalbuterol. 04/21/25-here for follow-up. Patient states that the Symbicort 80 mcg has been helping her a lot. She required rescue inhaler only 2 times in 2 months. She wants to keep nebulizer in case she needs it. She request for prescription. - Chief Complaint Patient presents with Shortness of Breath Patient here today for a 3 month F/U . Current Outpatient Medications: acetaminophen (TYLENOL) 500 [...] MAX 200MG IN 24HRS, Disp: , Rfl: albuterol 2.5 mg /3 mL (0.083 %) nebulizer solution, Inhale 3 mLs (2.5 mg total) by nebulization every 6 (six) hours as needed for wheezing., Disp: 75 mL, Rfl: 1 budesonide-formoteroL (SYMBICORT) 80-4.5 mcg/actuation inhaler, Inhale 2 puffs by mouth 2 (two) times daily., Disp: 1 Inhaler, Rfl: 5 montelukast (SINGULAIR) 10 mg tablet, Take 1 tablet (10 mg total) by mouth nightly., Disp: 30 tablet, Rfl: 5 No Known Allergies Social History Socioeconomic History [...] Not on file Social Drivers of Health Food Insecurity: No Food Insecurity (06/20/2023) Hunger Vital Sign Worried About Running Out of Food in the Last Year: Never true Ran Out of Food in the Last Year: Never true Transportation: No Transportation Needs (01/11/2024) Transportation Needs Transportation unreliable past 12 months: Not on file Past Medical History: Diagnosis [...] REVIEW OF SYSTEMS: Review of Systems Respiratory: Negative for wheezing. All other systems reviewed and are negative. PHYSICAL EXAM: VITAL SIGNS: BP 116/71 (BP Location: Left arm, Patient Position: Sitting) Pulse 96 Temp 98 ??F (36.7 ??C) Resp 16 Ht 1.651 m (5' 5 ) Wt 63 kg (139 lb) SpO2 98% BMI 23.13 kg/m?? Physical Exam Vitals reviewed. Constitutional: Appearance: [...] study - Ambulatory referral to Sleep Medicine; was ordered 2. Shortness of breath -likely combination of asthma, reactive airway disease and extreme fatigue Symbicort 80 mcg strength 1 to 2 puff twice daily depending on tolerance. - Albuterol 2 puffs every 4 hours as needed for wheezing, coughing fits or breakthrough shortness of breath. - montelukast daily. All risk and benefit discussed. - Patient wants to keep nebulizer at home. Therefore we will prescribe. Albuterol nebulizer solution also prescribed to use every 6 hours as needed 3. Wheezing- improved As above 4. H/o POTS 5. MRI brain was negative Bp wnl RTC 6 months or sooner if needed Provider notes reviewed for this visit: Thank you Dr. Duarte for allowing us to participate in this patients care. Note to patient: The 21st Century Cures Act makes medical notes like [...] this encounter was dictated with an electronic stitching machine setter spoken language to printed text. Electronic stitching machine setter of the spoken language can lead to errors, and at times, nonsensical words or phrases inadvertently being transcribed. I have reviewed the note for such errors, some may still exist. Please call with questions. documented in this encounter Plan of Treatment Upcoming Encounters Date Type Department Care Team (Late st Contact Info) Description 05/22/2025 8:30 PM EDT Procedure Visit [facility] [address] [address] Julianne Pantoja MD [address] [address] 05/23/2025 8:00 AM EDT Procedure Visit [facility] [address] [address] Julianne Pantoja MD [address] [address] 06/11/2025 11:00 AM EDT Office Visit [facility] [address] [address] Julianne Pantoja MD [address] [address] 10/22/2025 1:30 PM EST Office Visit [facility] Pulmonology - [address] [facility] [address] [place] [address] Wally Cartagena MD 211 [facility] [address] [place] [address] documented as of this encounter Visit Diagnoses Diagnosis Shortness of breath- Primary Mild intermittent asthma without complication documented in this encounter Care Teams Fruit Thinner Machine Operator Relationship Specialty Start Date End Date Dyana Barron DO [address] [place] [address] [place] [address] PCP - General Family Medicine 01/28/25 documented as of this encounter
[2025-04-29 17:13] LABS: Microscopic, Urine URINE MICROSCOPIC (MICROSCOPIC)
[2025-04-29 20:21] LABS: Bilirubin,Urine Negative (Negative); Color,Urine YELLOW (Yellow); Glucose,Urine (UA) Negative (Negative); Ketones,Urine Negative (Negative); Leukocyte Esterase,Urine Negative (Negative); PH,Urine 6.5 (5.0-8.5); Protein,Urine Negative (Negative); Specific Gravity, Urine 1.010 (1.005-1.030); Urobilinogen,Urine 0.2 EU/dl (0.2)
[2025-04-29 20:51] LABS: Bacteria,Urine 1+ /lpf; WBC,Urine Occasional #/hpf (0-3)
--- OUTSIDE RECORDS SUMMARY | 2025-04-30 12:12 | XMS_ITS | Encounter Summary ---
Author Organization [employer] ([place], [place], [place], [place]) Address [address] [place] [address] Care Team Providers Care Crumb Packer Name Role Phone Dyana Barron Primary Care Provider Reason for Visit * Reason Onset Date Comments Medication Refill 04/21/2025 Encounter Details Date Type Department Care Team (Late st Contact Info) Description 04/21/2025 Refill [facility] Pulmonology - [address] [place] [address] Wally Cartagena MD [address] [place] [address] Mild intermittent asthma without complication (Primary Dx) Social History Tobacco Use Types [...] Date Jayce rded Speak language other than Liberian at home Not on file 10/20/2023 Want [...] on file documented as of this encounter Miscellaneous Notes * Telephone Encounter - Alli Osorio - 04/21/2025 5:13 PM EDT Name brand Symbicort covered/sent. documented in this encounter Plan of Treatment Upcoming Encounters Date Type Department Care Team (Late st Contact Info) Description 05/22/2025 8:30 PM EDT Procedure Visit [facility] 160 [facility] [address] [place] [address] Julianne Pantoja MD [address] [facility] [address] [place] [address] 05/23/2025 8:00 AM EDT Procedure Visit [facility] [address] [facility] [address] [place] [address] Julianne Pantoja MD [address] [place] [address] 06/11/2025 11:00 AM EDT Office Visit [facility] 160 [facility] [address] [place] [address] Julianne Pantoja MD 160 [facility] [address] [place] [address] 10/22/2025 1:30 PM EST Office Visit [facility] Pulmonology - [address] [facility] [address] [place] [address] Wally Cartagena MD [address] [facility] [address] [place] [address] documented as of this encounter Visit Diagnoses Diagnosis Mild intermittent asthma without complication- Primary documented in this encounter Care Teams Crumb Packer Relationship Specialty Start Date End Date Dyana Barron DO [address] [place] [address] [place] [address] PCP - General Family Medicine 01/28/25 documented as of this encounter
--- OUTSIDE RECORDS SUMMARY | 2025-04-30 12:12 | XMS_ITS | Encounter Summary ---
Author Organization [employer] ([place], [place], [place], [place]) Address [address] [place] [address] Care Team Providers Care A R Collections Rep Name Role Phone Dyana Barron DO Primary Care Provider Reason for Referral * Other (Routine) - Authorized Specialty Diagnoses / Procedures Referred By Contac t Referred To Contact Sleep Medicine Diagnoses Hypersomnia Procedures MULTIPLE SLEEP LATENCY TEST Julianne Pantoja MD [address] [address] Phone: tel: fax: [facility] [address] [facility] [address] [place] [address] Phone: tel: fax: Referral ID Status Reason Start Date Expiration Date V isits Requested Visits Authorized [id number] Authorized 04/10/2025 04/10/2026 1 1 * Other (Routine) - Authorized Specialty Diagnoses / Procedures Referred By Contac t Referred To Contact Sleep Medicine Diagnoses Hypersomnia Procedures POLYSOMNOGRAPHY Julianne Pantoja MD [address] [facility] [address] [place] [address] Phone: tel: fax: [facility] [address] [facility] [address] [place] [address] Phone: tel: fax: Referral ID Status Reason Start Date Expiration Date V isits Requested Visits Authorized [id number] Authorized 04/10/2025 04/10/2026 1 1 Encounter Details Date Type Department Care Team (Late st Contact Info) Description 03/27/[address] [facility] [address] [facility] [facility] [facility] [employer] [address] [place] [address] Julianne Pantoja MD [address] [place] [address] Hypersomnia (Primary Dx) Social History [...] Date Jayce rded Speak language other than Cook Islander at home Not on file 10/20/2023 Want [...] Description 05/22/2025 8:30 PM EDT Procedure Visit [facility] [address] [facility] [address] [place] [phone] Julianne Pantoja MD [address] [facility] [address] [place] [phone] 05/23/2025 8:00 AM EDT Procedure Visit [facility] [address] [facility] [address] [place] [phone] Julianne Pantoja MD [address] [facility] [address] [place] [phone] 06/11/2025 11:00 AM EDT Office Visit [facility] [address] [facility] [place] [phone] Julianne Pantoja MD [address] [address] 10/22/2025 1:30 PM EST Office Visit [facility] Pulmonology - [address] [place] [address] Wally Cartagena MD [address] [place] [address] Scheduled Orders Name Type Priority Associated Diagnoses Orde r Schedule POLYSOMNOGRAPHY Sleep Center Routine Hypersomnia Expected: 04/10/2025, Expires: 03/27/2026 MULTIPLE SLEEP LATENCY TEST Sleep Center Routine Hypersomnia Expected: 04/10/2025, Expires: 03/27/2026 documented as of this encounter Visit Diagnoses Diagnosis Hypersomnia- Primary Hypersomnia, unspecified documented in this encounter Care Teams A R Collections Rep Relationship Specialty Start Date End Date Dyana Barron DO [address] [facility] [place] [address] [place] [address] PCP - General Family Medicine 01/28/25 documented as of this encounter
--- OUTSIDE RECORDS SUMMARY | 2025-04-30 12:12 | XMS_ITS | Encounter Summary ---
Author Organization [employer] ([place], [place], [place], [place]) Address [address] [place] [address] Care Team Providers Care Sleep Tech Name Role Phone Dyana Barron Primary Care Provider Encounter Details Date Type Department Care Team (Latest Contact Info) Description 04/21/2025 Travel Social History Tobacco Use Types Packs/Day [...] Date Jayce rded Speak language other than Dutch at home Not on file 10/20/2023 Want [...] Description 05/22/2025 8:30 PM EDT Procedure Visit [facility] 160 [facility] [address] [place] [address] Julianne Pantoja MD [address] [address] 05/23/2025 8:00 AM EDT Procedure Visit [facility] [address] [address] Julianne Pantoja MD [address] [address] 06/11/2025 11:00 AM EDT Office Visit [facility] [address] [address] Julianne Pantoja MD 160 [facility] [address] [place] [address] 10/22/2025 1:30 PM EST Office Visit [facility] Pulmonology - [address] [place] [phone] Wally Cartagena MD [address] [place], [place] [address] documented as of this encounter Visit Diagnoses Not on filedocumented in this encounter Care Teams Sleep Tech Relationship Specialty Start Date End Date Dyana Barron DO 200 [facility] [place] [address] PCP - General Family Medicine 01/28/25 documented as of this encounter
--- OUTSIDE RECORDS SUMMARY | 2025-04-30 12:12 | XMS_ITS | Encounter Summary ---
Author Organization [employer] ([place], [place], [place], [place]) Address [address] [place] [address] Care Team Providers Care Subsurface Augmentee Elint Operator Name Role Phone Dyana Barron Primary Care Provider Encounter Details Date Type Department Care Team (Late st Contact Info) Description 04/22/2025 Orders Only [facility] Pulmonology - [address] [place] [address] Wally Cartagena MD [address] [place] [address] Social History Tobacco Use Types Packs/Day Years [...] Date Jayce rded Speak language other than Filipino at home Not on file 10/20/2023 Want [...] Description 05/22/2025 8:30 PM EDT Procedure Visit [facility] [address] [address] Julianne Pantoja MD [address] [address] 05/23/2025 8:00 AM EDT Procedure Visit [facility] [address] [address] Julianne Pantoja MD [address] [address] 06/11/2025 11:00 AM EDT Office Visit [facility] [address] [address] Julianne Pantoja MD [address] [facility] [address] [place] [address] 10/22/2025 1:30 PM EST Office Visit [facility] Pulmonology - [address] [place] [address] Wally Cartagena MD 211 [facility] [address] [place] [address] documented as of this encounter Visit Diagnoses Not on filedocumented in this encounter Care Teams Subsurface Augmentee Elint Operator Relationship Specialty Start Date End Date Dyana Barron DO 200 [facility] [place] [address] [place] [address] PCP - General Family Medicine 01/28/25 documented as of this encounter
--- OUTSIDE RECORDS SUMMARY | 2025-04-30 12:12 | XMS_ITS | Clinical Summary ---
Author Organization [employer] ([place], [place], [place], [place]) Address [address] [place] [address] Care Team Providers Care Meter Reader Chief Name Role Phone Dyana Barron Primary Care Provider Allergies No known active allergies Medications EPINEPHrine (EPIPEN) 0.3 mg/0.3 mL Take 1 auto as needed by injection route as directed for 28 days. Active amitriptyline (ELAVIL) 10 MG tablet Active atogepant (Qulipta) 10 mg tab Take 1 tablet every day by oral route for 90 days. 024 Active cyclobenzaprine (FLEXERIL) 5 MG tablet TAKE [...] tablet Take 1 tablet by mouth daily. 025 Active albuterol 90 mcg/actuation inhaler Inhale by mouth every 6 (six) hours as needed for wheezing. Active levalbuterol (XOPENEX HFA) 45 mcg/actuation inhalerIndicati ons:Shortness of breath,Wheezing Inhale 1-2 puffs by mouth every 4 (four) hours as needed for wheezing or shortness of breath. 1 Inhaler 2 025 Active acetaminophen (TYLENOL) 500 MG tablet TAKE 1 TABLET (500 MG) BY MOUTH EVERY 6 HOURS NEEDED FOR PAIN OR FEVER FOR UP TO 14 DAYS. Active ibuprofen (MOTRIN) 400 MG tablet TAKE 1 TABLET (400 MG) BY MOUTH EVERY 6 HOURS NEEDED FOR MILD PAIN OR FEVER FOR UP TO 14 DAYS. Active montelukast (SINGULAIR) 10 mg tabletIndicatio ns:Mild intermittent asthma without complication Take 1 tablet (10 mg total) by mouth nightly. 30 tablet 5 025 2025 Active albuterol 2.5 mg /3 mL (0.083 %) nebulizer solutionIndicat ions:Mild intermittent asthma without complication Inhale 3 mLs (2.5 mg total) by nebulization every 6 (six) hours as needed for wheezing. 75 mL 1 Active budesonide-form oteroL (SYMBICORT) 80-4.5 mcg/actuation inhalerIndicati ons:Mild intermittent asthma without complication INHALE 2 PUFFS BY MOUTH 2 (TWO) TIMES DAILY. 10.2 g 5 025 Active montelukast (SINGULAIR) 10 mg tabletIndicatio ns:Mild intermittent asthma without complication Take 1 tablet (10 mg total) by mouth nightly. 30 tablet 3 025 2024 Discontinued(R eorder) budesonide-form oteroL (SYMBICORT) 80-4.5 mcg/actuation inhalerIndicati ons:Mild intermittent asthma without complication Inhale 2 puffs by mouth 2 (two) times daily. 1 Inhaler 5 025 2024 Discontinued(R eorder) budesonide-form oteroL (SYMBICORT) 80-4.5 mcg/actuation inhalerIndicati ons:Mild intermittent asthma without complication Inhale 2 puffs by mouth 2 (two) times daily. 1 Inhaler 5 2 025 2024 Discontinued Active Problems Problem Noted Date Diagnosed Date [...] Encounters Date Type Department Care Team Description 04/22/2025 Orders Only [facility] Pulmonology - [address] [place] [address] Wally Cartagena MD 04/21/2025 3:00 PM EDT Office Visit [facility] Pulmonology - [address] [place] [address] Wally Cartagena MD Shortness of breath (Primary Dx); Mild intermittent asthma without complication 04/21/2025 Refill [facility] Pulmonology - [address] [place] [address] Wally Cartagena MD Mild intermittent asthma without complication (Primary Dx) 04/21/2025 Refill [facility] Pulmonology - [address] [place] [address] Wally Cartagena MD Mild intermittent asthma without complication (Primary Dx) 04/21/2025 Travel 04/02/2025 Telephone [facility] [address] [place] [address] Back Tosha Cason Results 03/27/2025 Orders Only [facility] [address] [place] [address] Julianne Pantoja MD Hypersomnia (Primary Dx) 03/24/2025 8:30 PM EDT Procedure Visit [facility] [address] [place] [address] Julianne Pantoja MD Hypersomnia 02/26/2025 2:00 PM EDT Initial Consult [facility] [address] [place] [address] Wally Cartagena MD Combs, Pamela A, MD Hypersomnia; Nocturnal dyspnea; Parasomnia, unspecified type; Poor sleep hygiene 02/26/2025 Travel 02/19/2025 2:45 PM EDT Office Visit [facility] Pulmonology - [address] [place] [address] Wally Cartagena MD Mild intermittent asthma without complication (Primary Dx); Wheezing 02/13/2025 12:30 PM EDT - 02/13/2025 11:59 PM EDT Hospital Encounter [facility] Pulmonary Lab [address] [place] [phone] Wally Cartagena MD Shortness of breath Discharge Disposition: Home or Self Care 02/13/2025 Travel from Last 3 Months Family History [...] Date Jayce rded Speak language other than [place] R[place] at home Not on file 10/20/2023 Want [...] Mass Index 23.13 04/21/2025 2:55 PM EDT Plan of Treatment Upcoming Encounters Date Type Department Care Team (Late st Contact Info) Description 05/22/2025 8:30 PM EDT Procedure Visit [facility] [address] [place] [address] Julianne Pantoja MD [address] [place] [address] 05/23/2025 8:00 AM EDT Procedure Visit [facility] [address] [place] [address] Julianne Pantoja MD [address] [place] [address] 06/11/2025 11:00 AM EDT Office Visit [facility] [address] [place] [address] Julianne Pantoja MD [address] [place] [address] 10/22/2025 1:30 PM EST Office Visit [facility] Pulmonology - [address] [place] [address] Wally Cartagena MD [address] [place] [address] Health Maintenance Due Date Last Done Comments Depression Screening (12+) 2017 Meningococcal B Vaccine (1 of 2 - Standard) 2021 Hepatitis C Screening 2023 DTAP/TDAP/TD VACCINES (1 - Tdap) 2024 Pneumococcal Vaccine: 0-49 Years (1 of 2 - PCV) 2023 COVID-19 VACCINE (1 - season) 2024 Influenza Vaccine (#1) 2025 Tobacco Cessation Counseling and Screening (12+) 04/2104/21/2025 HIV Screening Completed 06/22/2023 Procedures Procedure Name Priority Date/Time Associated Diagnosis Comments POLYSOMNOGRAPHY Routine 03/25/2025 6:35 AM EDT Hypersomnia [place] CO DIFFUSING CAPACITY Routine 02/13/2025 2:14 PM [...] Antigen Nonreactive Nonreactive 06/22/2023 4:43 AM EDT [facility] Comment: The Combo HIV procedure [...] MD LAB BLOOD ORDERABLES Final R esult [facility] [address] [place] [address], [facility] [phone] from Last 3 Months or Most Recently Relevant to Health Maintenance Insurance Advance Directives For more information, please contact: [phone] * Full Code (Latest Code Status on File) Date Activated Date Inactivated Comments 06/20/2023 1:53 AM 06/24/2023 4:52 PM -Attempt Res uscitation if person has no pulse and is not breathing. -If no pulse or not breathing attempt CPR/CODE. -Call Rapid Response if patient is in distress. Care Teams Meter Reader Chief Relationship Specialty Start Date End Date Dyana Barron DO [address] [place] [address] [place] [address] PCP - General Family Medicine 01/28/25
--- OUTSIDE RECORDS SUMMARY | 2025-04-30 12:12 | XMS_ITS | Clinical Summary ---
Author Organization Healthcare Address [address] [place] [address] Care Team Providers Care Corporate General Manager Name Role Phone Pcp, No Primary Care [...] 11/07/2023 4:0 0 PM EST Growth Chart: [facility] (Girls, 2- 20 Years) Plan of Treatment [...] of 3 - 19+ 3-dose series) 2024 [id number] Vaccine (1 - 2023- season) 2024 UKY-Influenza Vaccine (#1) 2025 [facility]Y-Zoster Vaccines (1 of 2) 2055 [...] BLOOD ORDERABLES Final Result Performing Organization Address City/State/[facility] Co de Phone Number [facility] [address] [place] [address] * Hepatitis C Antibody - ED (12/10/2024 11:07 PM EDT) Hepatitis C Antibody Negative Negative 12/11/2024 12:03 AM EDT [facility] Blood Venous blood specimen / Unknown Venipuncture / Unknown 12/10/2024 11:07 PM EDT 12/10/2024 11:23 PM EDT Antonio Cooper MD LAB BLOOD ORDERABLES Final Result [facility] [address] [place] [address] from Last 3 Months or Most Recently Relevant to Health Maintenance Insurance [facility] [employer] Care Teams Corporate General Manager Relationship Specialty Start Date End Date Pcp, No [address] [place] [address] PCP - General Family Medicine 06/24/23
--- OUTSIDE RECORDS SUMMARY | 2025-04-30 12:12 | XMS_ITS | Encounter Summary ---
Author Organization [employer] ([place], [place], [place], [place]) Address [address] [place] [address] Care Team Providers Care Derrick Helper Name Role Phone Dyana Barron Primary Care Provider Reason for Visit * Reason Onset Date Comments Results 04/02/2025 Encounter Details Date Type Department Care Team (Late st Contact Info) Description 04/02/[address] [address] Back Yoav Tosha Results Social History Tobacco Use Types Packs/Day Years [...] Date Jayce rded Speak language other than Tongan at home Not on file 10/20/2023 Want [...] encounter Miscellaneous Notes * Telephone Encounter - Tosha Cason - 04/02/2025 10:53 AM EDT Spoke to patient. Went over sleep study results. Answered any questions she had. Scheduled her for a psg/mslt. documented in this encounter Plan of Treatment Upcoming Encounters Date Type Department Care Team (Late st Contact Info) Description 05/22/2025 8:30 PM EDT Procedure Visit [facility] [address] [place] [address] Julianne Pantoja MD [address] [place] [address] 05/23/2025 8:00 AM EDT Procedure Visit [facility] [address] [place] [address] Julianne Pantoja MD [address] [facility] [address] [place] [address] 06/11/2025 11:00 AM EDT Office Visit [facility] [address] [address] [facility] [address] [place] [address] Julianne Pantoja MD [address] [facility] [address] [facility] [address] [place] [address] 10/22/2025 1:30 PM EST Office Visit [facility] Pulmonology - [address] [place] [address] Wally Cartagena MD [address] [place] [address] documented as of this encounter Visit Diagnoses Not on filedocumented in this encounter Care Teams Derrick Helper Relationship Specialty Start Date End Date Dyana Barron DO [address] [facility] [place] [address] [place] [address] PCP - General Family Medicine 01/28/25 documented as of this encounter
--- OUTSIDE RECORDS SUMMARY | 2025-04-30 12:12 | XMS_ITS | Referral Summary ---
Author Organization [employer] ([place], [place], [place], [place]) Address [address] [place] [address] Care Team Providers Care Net Application Architect Name Role Phone Dyana Barron Primary Care Provider Encounters Date Type Department Care Team Description 04/22/2025 Orders Only [facility] Pulmonology - [address] [place] [address] Wally Cartagena MD 04/21/2025 Refill [facility] Pulmonology - [address] [place] [address] Wally Cartagena MD Mild intermittent asthma without complication (Primary Dx) 04/21/2025 Refill [facility] Pulmonology - [address] [place] [address] Wlaly Cartagena MD Mild intermittent asthma without complication (Primary Dx) 04/21/2025 Travel 04/21/2025 3:00 PM EDT Office Visit [facility] Pulmonology - [address] [place] [address] Wally Cartagena MD Shortness of breath (Primary Dx); Mild intermittent asthma without complication 04/02/2025 Telephone [facility] [address] [place] [address] Back Tosha Cason Results 03/27/2025 Orders Only [facility] [address] [facility] [facility] [address] [place] [address] Julianne Pantoja MD Hypersomnia (Primary Dx) 03/24/2025 8:30 PM EDT Procedure Visit [facility] [address] [address] [facility] [facility] [address] [place] [address] Julianne Pantoja MD Hypersomnia 02/26/2025 Travel 02/26/2025 2:00 PM EDT Initial Consult [facility] [address] [facility] [facility] [address] [place] [address] Wally Cartagena MD Combs, Pamela A, MD Hypersomnia; Nocturnal dyspnea; Parasomnia, unspecified type; Poor sleep hygiene 02/19/2025 2:45 PM EDT Office Visit [facility] Pulmonology - [address] [place] [address] Wally Cartagena MD Mild intermittent asthma without complication (Primary Dx); Wheezing 02/13/2025 Travel 02/13/2025 12:30 PM EDT - 02/13/2025 11:59 PM EDT Hospital Encounter [facility] Pulmonary Lab [address] [place] [address] Wally Cartagena MD Shortness of breath Discharge Disposition: Home or Self Care from Last 3 Months Allergies No known [...] as needed for wheezing. 75 mL 1 025 Active budesonide-form oteroL (SYMBICORT) 80-4.5 mcg/actuation inhalerIndicati [...] times daily. 1 Inhaler 5 025 2024 Discontinued Active Problems Problem Noted [...] Date Jayce rded Speak language other than Lao at home Not on file 10/20/2023 Want [...] Description 05/22/2025 8:30 PM EDT Procedure Visit [facility] [address] [facility] [facility] [address] [place] [address] Julianne Pantoja MD [address] [facility] [address] [place] [address] 05/23/2025 8:00 AM EDT Procedure Visit [facility] [address] [facility] [place] [address] Julianne Pantoja MD [address] [facility] [address] [place] [address] 06/11/2025 11:00 AM EDT Office Visit [facility] [address] [facility] [facility] [address] [place] [address] Julianne Pantoja MD [address] [facility] [address] [place] [address] 10/22/2025 1:30 PM EST Office Visit [facility] Pulmonology - [address] [place] [address] Wally Cartagena MD [address] [facility] [address] [place], [place] [id number] Procedures Procedure Name Priority Date/Time Associated Diagnosis Comments POLYSOMNOGRAPHY Routine 03/25/2025 6:35 AM EDT Hypersomnia [place] CO DIFFUSING CAPACITY Routine 02/13/2025 2:14 PM [...] AG/AB Combo (06/22/2023 3:08 AM EDT) Pathologist [facility] [place] HIV-1 P24 Antigen Nonreactive Nonreactive 06/22/2023 4:43 AM EDT [facility] Comment: The Combo HIV [...] MD LAB BLOOD ORDERABLES Final R esult [facility] [address] [phone] from Last 3 Months or Most Recently Relevant to Health Maintenance Insurance [employer] MEDICA[employer] Advance Directives For more information, please contact: [phone] * Full Code (Latest Code Status on File) Date Activated Date Inactivated Comments 06/20/2023 1:53 AM 06/24/2023 4:52 PM -Attempt Res uscitation if person has no pulse and is not breathing. -If no pulse or not breathing attempt CPR/CODE. -Call Rapid Response if patient is in distress. Care Teams Net Application Architect Relationship Specialty Start Date End Date Dyana Barron, [address] [facility] [place] [address] [place] [address] PCP - General Family Medicine 01/28/25
--- OUTSIDE RECORDS SUMMARY | 2025-04-30 12:12 | XMS_ITS | Clinical Summary ---
Author Organization [facility] Address [address] [place] [address] Phone Care Team Providers Care Field Evidence Technician Name Role Phone Unavailable Unavailable Conditions or Problems No information available. Medications No information available. Medications Administered No information available. Allergies, Adverse Reactions, Alerts No information available. Results No information available. Plan of Care No information available. Procedures No information available. Vital Signs No information available. Immunizations No information available. Advance Directives No information available.
--- OUTSIDE RECORDS SUMMARY | 2025-04-30 12:12 | XMS_ITS | Encounter Summary ---
Author Organization [employer] ([place], [place], [place], [place]) Address [address] [place] [address] Care Team Providers Care Network Technology Instructor Name Role Phone Dyana Barron Primary Care Provider Reason for Visit * Reason Comments Med Change Request Encounter Details Date Type Department Care Team (Late st Contact Info) Description 04/21/2025 Refill [facility] Pulmonology - [address] [place] [address] Wally Cartagena MD [address] [place] [address] Mild intermittent asthma without complication (Primary Dx) [...] Date Jayce rded Speak language other than Fijian at home Not on file 10/20/2023 Want [...] Description 05/22/2025 8:30 PM EDT Procedure Visit [facility] [address] [facility] [address] [place] [address] Julianne Pantoja MD [address] [facility] [address] [place] [address] 05/23/2025 8:00 AM EDT Procedure Visit [facility] [address] [facility] [address] [place] [address] Julianne Pantoja MD [address] [place] [address] [facility] [address] [place] [address] 06/11/2025 11:00 AM EDT Office Visit [facility] [address] [facility] [address] [place] [address] Julianne Pantoja MD [address] [facility] [address] [place] [address] 10/22/2025 1:30 PM EST Office Visit [facility] Pulmonology - [address] [place] [address] Wally Cartagena MD [address] [facility] [address] [place], [place] [phone] documented as of this encounter Visit Diagnoses Diagnosis Mild intermittent asthma without complication- Primary documented in this encounter Care Teams Network Technology Instructor Relationship Specialty Start Date End Date Dyana Barron DO [address] [facility] [address] [place], [place] [id number] PCP - General Family Medicine 01/28/25 documented as of this encounter
== END 2025-04-29 23:59 | disposition home or self-care (01) ==
LOC: LAB.DROPOF 04-30 12:09
PROVIDERS: PCP Internal Medicine; Visit Provider Internal Medicine
DX: N39.0 Urinary tract infection, site not specified (principal); R31.9 Hematuria, unspecified
CPT/HCPCS: 81001; 87086

== ENCOUNTER 2025-05-13 14:20 | Outpatient (CLI) | payer MEDICAID, SELFPAY ==
--- OUTSIDE RECORDS SUMMARY | 2025-03-24 20:30 | XMS_ITS | Encounter Summary ---
Author Organization [employer] ([place], [place], [place] Address [address] [place] [address] Care Team Providers Care Front End Alignment Specialist Name Role Phone Dyana Barron Phyllis Primary Care Provider Reason for Visit * Other (Routine) - Closed Specialty Diagnoses / Procedures Referred By Contac t Referred To Contact Sleep Medicine Diagnoses Hypersomnia Procedures POLYSOMNOGRAPHY Julianne Pantoja MD [address] [address] Phone: tel: fax: [facility] [address] [address] Phone: tel: fax: Referral ID Status Reason Start Date Expiration Date Visits Re quested Visits Authorized [id number] Closed 03/12/2025 03/12/2026 1 1 Encounter Details Date Type Department Care Team (Late st Contact Info) Description 03/24/2025 8:30 PM EDT Procedure Visit [facility] [address] [address] Julianne Pantoja MD [address] [address] Hypersomnia Social History Tobacco Use [...] file 01/11/2024 Family and Community Support Answer Lavaro e Recorded Help with Day to Day [...] a sleep aid they will need a medical delivery driver [place]. Went over insurance authorization information with patient documented in this encounter Progress Notes * Corry Vidal - 03/24/2025 8:30 PM EDT Testing complete documented in this encounter Plan of Treatment Upcoming Encounters Date Type Department Care Team (Late st Contact Info) Description 05/22/2025 8:30 PM EDT Procedure Visit [facility] 160 [facility] [employer] [address] [address] Julianne Pantoja MD 160 [facility] [employer] [address] [address] 05/23/2025 8:00 AM EDT Procedure Visit [facility] [address] [facility] [address] Julianne Pantoja MD [address] [employer] [address] [address] 06/11/2025 11:00 AM EDT Office Visit [facility] [address] [address] Julianne Pantoja MD [address] [facility] [address] 10/22/2025 1:30 PM EST Office Visit [facility] Pulmonology - [address] [place] [address] Wally Cartagena MD [address] [place] [address] documented as of this encounter Procedures Procedure [...] unspecified documented in this encounter Care Teams Front End Alignment Specialist Relationship Specialty Start Date End Date Dyana Barron DO 200 [facility] [address] [place] [address] PCP - General Family Medicine 01/28/25 documented as of this encounter
--- OUTSIDE RECORDS SUMMARY | 2025-04-21 15:00 | XMS_ITS | Encounter Summary ---
Author Organization [employer] ([place], [place], [place], [place]) Address [address] [place] [address] Care Team Providers Care Archives Technician Name Role Phone Dyana Barron Primary Care Provider Reason for Visit * Reason Comments Shortness of Breath Patient here today f or a 3 month F/U Encounter Details Date Type Department Care Team (Late st Contact Info) Description 04/21/2025 3:00 PM EDT Office Visit [facility] Pulmonology - [address] [place] [address] Wally Cartagena MD [address] [place] [address] Shortness of breath (Primary Dx); Mild intermittent [...] Date Jayce rded Speak language other than Faroese at home Not on file 10/20/2023 Want [...] She went to cardiology Dr Duarte at [place], [place] Patient had extensive workup including echocardiogram, [...] this encounter was dictated with an electronic net mender spoken language to printed text. Electronic net mender of the spoken language can lead to errors, and at times, nonsensical words or phrases inadvertently being transcribed. I have reviewed the note for such errors, some may still exist. Please call with questions. documented in this encounter Plan of Treatment Upcoming Encounters Date Type Department Care Team (Late st Contact Info) Description 05/22/2025 8:30 PM EDT Procedure Visit [facility] [address] [address] Julianne Pantoja MD [address] [address] 05/23/2025 8:00 AM EDT Procedure Visit [facility] [address] [address] Julianne Pantoja MD [address] [address] 06/11/2025 11:00 AM EDT Office Visit [facility] [address] [address] Julianne Pantoja MD [address] [address] 10/22/2025 1:30 PM EST Office Visit [facility] Pulmonology - [address] 211 [facility] [address] [place] [address] Wally Cartagena MD 211 [facility] [address] [place] [address] documented as of this encounter Visit Diagnoses Diagnosis Shortness of breath- Primary Mild intermittent asthma without complication documented in this encounter Care Teams Archives Technician Relationship Specialty Start Date End Date Dyana Barron DO [address] [place] [address] [place] [address] PCP - General Family Medicine 01/28/25 documented as of this encounter
--- OUTSIDE RECORDS SUMMARY | 2025-05-14 11:04 | XMS_ITS | Clinical Summary ---
Author Organization [employer] ([place], [place], [place], [place]) Address [address] [place] [address] Care Team Providers Care Tank Truck Milk Receiver Name Role Phone Dyana Barron Primary Care [...] Department Care Team Description 04/22/2025 Orders Only [facility] Pulmonology - [address] [place] [address] Wally Cartagena MD 04/21/2025 3:00 PM EDT Office Visit [facility] Pulmonology - [address] [place] [address] Wally Cartagena MD Shortness of breath (Primary Dx); Mild intermittent asthma without complication 04/21/2025 Refill [facility] Pulmonology - [address] [place] [address] Wally Cartagena MD Mild intermittent asthma without complication (Primary Dx) 04/21/2025 Refill [facility] Pulmonology - [address] [place] [address] Wally Cartagena MD Mild intermittent asthma without complication (Primary Dx) 04/21/2025 Travel 04/02/2025 Telephone [facility] [address] [place] [address] Back Tosha Cason Results 03/27/2025 Orders Only [facility] [address] [place] [address] Julianne Pantoja MD Hypersomnia (Primary Dx) 03/24/2025 8:30 PM EDT Procedure Visit [facility] [address] [place] [address] Julianne Pantoja MD Hypersomnia 02/26/2025 2:00 PM EDT Initial Consult [facility] [address] [place] [address] Wally Cartagena MD Combs, Pamela A, MD Hypersomnia; Nocturnal dyspnea; Parasomnia, unspecified type; Poor sleep hygiene 02/26/2025 Travel 02/19/2025 2:45 PM EDT Office Visit [facility] Pulmonology - [address] [place] [address] Wally Cartagena MD Mild intermittent asthma without complication (Primary Dx); Wheezing 02/13/2025 12:30 PM EDT - 02/13/2025 11:59 PM EDT Hospital Encounter [facility] Pulmonary Lab 1 [place] [address] Wally Cartagena MD Shortness of breath Discharge [...] 05/22/2025 8:30 PM EDT Procedure Visit [facility] [address] [place] [address] Julianne Pantoja MD [address] [place] [address] 05/23/2025 8:00 AM EDT Procedure Visit [facility] [address] [place] [address] Julianne Pantoja MD [address] [place] [address] 06/11/2025 11:00 AM EDT Office Visit [facility] [address] [place] [address] Julianne Pantoja MD [address] [place] [address] 10/22/2025 1:30 PM EST Office Visit [facility] Pulmonology - [address] [place] [address] Wally Cartagena MD [address] [place] [address] Health Maintenance Due Date Last [...] POLYSOMNOGRAPHY Routine 03/25/2025 6:35 AM EDT Hypersomnia [place] CO DIFFUSING CAPACITY Routine 02/13/2025 2:14 PM [...] Antigen Nonreactive Nonreactive 06/22/2023 4:43 AM EDT [facility] Comment: The Combo HIV procedure [...] MD LAB BLOOD ORDERABLES Final R esult [facility] [address] [place] [address], [facility] [phone] from Last 3 Months or Most Recently Relevant to Health Maintenance Insurance Advance Directives For more information, please contact: [phone] * Full Code (Latest Code Status on File) Date Activated Date Inactivated Comments 06/20/2023 1:53 AM 06/24/2023 4:52 PM -Attempt Res uscitation if person has no pulse and is not breathing. -If no pulse or not breathing attempt CPR/CODE. -Call Rapid Response if patient is in distress. Care Teams Tank Truck Milk Receiver Relationship Specialty Start Date End Date Dyana Barron DO [address] [facility] [place] [address] [place] [address] PCP - General Family Medicine 01/28/25
--- OUTSIDE RECORDS SUMMARY | 2025-05-14 11:04 | XMS_ITS | Encounter Summary ---
Author Organization [employer] ([place], [place], [place], [place]) Address [address] [place] [address] Care Team Providers Care Orthopedic Designer Name Role Phone Dyana Barron Primary Care Provider Reason for Visit * Reason Onset Date Comments Results 04/02/2025 Encounter Details Date Type Department Care Team (Late st Contact Info) Description 04/02/[address] [address] Back Yoav Tosha Results Social [...] Date Jayce rded Speak language other than Tuvaluan at home Not on file 10/20/2023 Want [...] Description 05/22/2025 8:30 PM EDT Procedure Visit [facility] [address] [place] [address] Julianne Pantoja MD [address] [place] [address] 05/23/2025 8:00 AM EDT Procedure Visit [facility] [address] [place] [address] Julianne Pantoja MD [address] [facility] [address] [place] [address] 06/11/2025 11:00 AM EDT Office Visit [facility] [address] [facility] [address] [place] [address] Julianne Pantoja MD [address] [facility] [address] [place] [address] 10/22/2025 1:30 PM EST Office Visit [facility] Pulmonology - [address] [place] [address] Wally Cartagena MD [address] [place] [address] documented as of this encounter Visit Diagnoses Not on filedocumented in this encounter Care Teams Orthopedic Designer Relationship Specialty Start Date End Date Dyana Barron DO [address] [facility] [place] [address] [place] [address] PCP - General Family Medicine 01/28/25 documented as of this encounter
--- OUTSIDE RECORDS SUMMARY | 2025-05-14 11:04 | XMS_ITS | Referral Summary ---
Author Organization [employer] ([place], [place], [place], [place]) Address [address] [place] [address] Care Team Providers Care Data Integration Analyst Name Role Phone Dyana Barron Primary Care Provider Encounters Date Type Department Care Team Description 04/22/2025 Orders Only [facility] Pulmonology - [address] [place] [address] Wally Cartagena MD 04/21/2025 Refill [facility] Pulmonology - [address] [place] [address] Wally Cartagena MD Mild intermittent asthma without complication (Primary Dx) 04/21/2025 Refill [facility] Pulmonology - [address] [place] [address] Wally Cartagena MD Mild intermittent asthma without complication (Primary Dx) 04/21/2025 Travel 04/21/2025 3:00 PM EDT Office Visit [facility] Pulmonology - [address] [place] [address] Wally Cartagena MD Shortness of breath (Primary Dx); Mild intermittent asthma without complication 04/02/2025 Telephone [facility] [address] [place] [address] Back Tosha Cason Results 03/27/2025 Orders Only [facility] [address] [facility] [address] [place] [address] Julianne Pantoja MD Hypersomnia (Primary Dx) 03/24/2025 8:30 PM EDT Procedure Visit [facility] [address] [facility] [address] [place] [address] Julianne Pantoja MD Hypersomnia 02/26/2025 Travel 02/26/2025 2:00 PM EDT Initial Consult [facility] [address] [facility] [address] [place] [address] Wally Cartagena MD Combs, Pamela A, MD Hypersomnia; Nocturnal dyspnea; Parasomnia, unspecified type; Poor sleep hygiene 02/19/2025 2:45 PM EDT Office Visit [facility] Pulmonology - [address] [place] [address] Wally Cartagena MD Mild intermittent asthma without complication (Primary Dx); Wheezing 02/13/2025 Travel 02/13/2025 12:30 PM EDT - 02/13/2025 11:59 PM EDT Hospital Encounter [facility] [address] [place] [address] Wally Cartagena MD Shortness of [...] Date Jayce rded Speak language other than Citizen Of [place] at home Not on file 10/20/2023 Want [...] Description 05/22/2025 8:30 PM EDT Procedure Visit [facility] [address] [facility] [address] [place] [address] Julianne Pantoja MD [address] [facility] [place] [address] 05/23/2025 8:00 AM EDT Procedure Visit [facility] [address] [facility] [address] [place] [address] Julianne Pantoja MD [address] [facility] [address] [place] [address] 06/11/2025 11:00 AM EDT Office Visit [facility] [address] [facility] [address] [place] [address] Julianne Pantoja MD [address] [facility] [address] [place] [address] 10/22/2025 1:30 PM EST Office Visit [facility] Pulmonology - [address] [place] [address] Wally Cartagena MD [address] [facility] [address] [place], [place] [id number] Procedures Procedure Name Priority Date/Time Associated Diagnosis Comments POLYSOMNOGRAPHY Routine 03/25/2025 6:35 AM EDT Hypersomnia [place] CO DIFFUSING CAPACITY Routine 02/13/2025 2:14 PM [...] AG/AB Combo (06/22/2023 3:08 AM EDT) Pathologist [facility] HIV-1 P24 Antigen Nonreactive Nonreactive 06/22/2023 4:[address] [facility] Comment: The Combo HIV procedure is [...] MD LAB BLOOD ORDERABLES Final R esult [facility] [address] [phone] from Last 3 Months or Most Recently Relevant to Health Maintenance Insurance [employer] MEDICAID Advance Directives For more information, please contact: [phone] * Full Code (Latest Code Status on File) Date Activated Date Inactivated Comments 06/20/2023 1:53 AM 06/24/2023 4:52 PM -Attempt Res uscitation if person has no pulse and is not breathing. -If no pulse or not breathing attempt CPR/CODE. -Call Rapid Response if patient is in distress. Care Teams Data Integration Analyst Relationship Specialty Start Date End Date Dyana Barron, [address] [facility] [place] [address] PCP - General Family Medicine 01/28/25
--- OUTSIDE RECORDS SUMMARY | 2025-05-14 11:05 | XMS_ITS | Encounter Summary ---
Author Organization [employer] ([place], [place], [place], [place]) Address [address] [place] [address] Care Team Providers Care Pill Coater Name Role Phone Dyana Barron Primary Care Provider Encounter Details Date Type Department Care Team (Late st Contact Info) Description 04/22/2025 Orders Only [facility] Pulmonology - [address] [place] [address] Wally Cartagena MD [address] [place] [address] Social History Tobacco Use Types Packs/Day Years [...] Date Jayce rded Speak language other than Mexican at home Not on file 10/20/2023 Want [...] 8:30 PM EDT Procedure Visit [facility] [address] [address] Julianne Pantoja MD [address] [address] 05/23/2025 8:00 AM EDT Procedure Visit [facility] [address] [address] Julianne Pantoja MD [address] [address] 06/11/2025 11:00 AM EDT Office Visit [facility] [address] [address] Julianne Pantoja MD [address] [facility] [address] [place] [address] 10/22/2025 1:30 PM EST Office Visit [facility] Pulmonology - [address] [place] [address] Wally Cartagena MD [address] [facility] [address] [place] [address] documented as of this encounter Visit Diagnoses Not on filedocumented in this encounter Care Teams Pill Coater Relationship Specialty Start Date End Date Dyana Barron DO 200 [facility] [place] [address] PCP - General Family Medicine 01/28/25 documented as of this encounter
--- OUTSIDE RECORDS SUMMARY | 2025-05-14 11:05 | XMS_ITS | Encounter Summary ---
Author Organization [employer] ([place], [place], [place], [place]) Address [address] [place] [address] Care Team Providers Care Lockmaker Name Role Phone Dyana Barron Primary Care Provider Reason for Visit * Reason Comments Med Change Request Encounter Details Date Type Department Care Team (Late st Contact Info) Description 04/21/2025 Refill [facility] Pulmonology - [address] [place] [address] Wally Cartagena MD [address] [place] [address] Mild intermittent asthma without complication (Primary Dx) [...] Date Jayce rded Speak language other than South African at home Not on file 10/20/2023 Want [...] Description 05/22/2025 8:30 PM EDT Procedure Visit [facility] [address] [facility] [address] [place] [address] Julianne Pantoja MD [address] [facility] [address] [place] [address] 05/23/2025 8:00 AM EDT Procedure Visit [facility] [address] [facility] [address] [place] [address] Julianne Pantoja MD [address] [place] [address] [facility] [address] [place] [address] 06/11/2025 11:00 AM EDT Office Visit [facility] [address] [facility] [address] [place] [address] Julianne Pantoja MD [address] [facility] [address] [place] [address] 10/22/2025 1:30 PM EST Office Visit [facility] Pulmonology - [address] [place] [address] Wally Cartagena MD [address] [facility] [address] [place], [place] [phone] documented as of this encounter Visit Diagnoses Diagnosis Mild intermittent asthma without complication- Primary documented in this encounter Care Teams Lockmaker Relationship Specialty Start Date End Date Dyana Barron DO 200 [facility] [address] [place], [place] [id number] PCP - General Family Medicine 01/28/25 documented as of this encounter
--- OUTSIDE RECORDS SUMMARY | 2025-05-14 11:05 | XMS_ITS | Encounter Summary ---
Author Organization [employer] ([place], [place], [place], [place]) Address [address] [place] [address] Care Team Providers Care Project Development Manager Name Role Phone Dyana Barron Primary Care Provider Reason for Visit * Reason Onset Date Comments Medication Refill 04/21/2025 Encounter Details Date Type Department Care Team (Late st Contact Info) Description 04/21/2025 Refill [facility] Pulmonology - [address] [place] [address] Wally Cartagena MD [address] [place] [address] Mild intermittent asthma without complication (Primary Dx) [...] Date Jayce rded Speak language other than Burkinan at home Not on file 10/20/2023 Want [...] Description 05/22/2025 8:30 PM EDT Procedure Visit [facility] [address] [facility] [address] [place] [address] Julianne Pantoja MD [address] [facility] [address] [place] [address] 05/23/2025 8:00 AM EDT Procedure Visit [facility] [address] [facility] [address] [place] [address] Julianne Pantoja MD [address] [place] [address] 06/11/2025 11:00 AM EDT Office Visit [facility] [address] [facility] [address] [place] [address] Julianne Pantoja MD 160 [facility] [address] [place] [address] 10/22/2025 1:30 PM EST Office Visit [facility] Pulmonology - [address] [facility] [address] [place] [address] Wally Cartagena MD 211 [facility] [address] [place] [address] documented as of this encounter Visit Diagnoses Diagnosis Mild intermittent asthma without complication- Primary documented in this encounter Care Teams Project Development Manager Relationship Specialty Start Date End Date Dyana Barron DO [address] [place] [address] [place] [address] PCP - General Family Medicine 01/28/25 documented as of this encounter
--- OUTSIDE RECORDS SUMMARY | 2025-05-14 11:05 | XMS_ITS | Encounter Summary ---
Author Organization [employer] ([place], [place], [place], [place]) Address [address] [place] [address] Care Team Providers Care Rotating Equipment Engineer Name Role Phone Dyana Barron Primary Care [...] Date Jayce rded Speak language other than Kyrgyz at home Not on file 10/20/2023 Want [...] Description 05/22/2025 8:30 PM EDT Procedure Visit [facility] 160 [facility] [address] [place] [address] Julianne Pantoja MD [address] [address] 05/23/2025 8:00 AM EDT Procedure Visit [facility] [address] [address] Julianne Pantoja MD [address] [address] 06/11/2025 11:00 AM EDT Office Visit [facility] [address] [address] Julianne Pantoja MD 160 [facility] [address] [place] [address] 10/22/2025 1:30 PM EST Office Visit [facility] Pulmonology - [address] [place] [address] Wally Cartagena MD [address] [place], [place] [address] documented as of this encounter Visit Diagnoses Not on filedocumented in this encounter Care Teams Rotating Equipment Engineer Relationship Specialty Start Date End Date Dyana Barron DO [address] [facility] [place] [address] PCP - General Family Medicine 01/28/25 documented as of this encounter
--- OUTSIDE RECORDS SUMMARY | 2025-05-14 11:06 | XMS_ITS | Clinical Summary ---
Author Organization [facility] Address [address] [facility] [address] [place] [address] Phone Care Team Providers Care Car And Yard Supervisor Name Role Phone Unavailable Unavailable Conditions or Problems No information available. Medications No information available. Medications Administered No information available. Allergies, Adverse Reactions, Alerts No information available. Results No information available. Plan of Care No information available. Procedures No information available. Vital Signs No information available. Immunizations No information available. Advance Directives No information available.
--- OUTSIDE RECORDS SUMMARY | 2025-05-14 11:07 | XMS_ITS | Encounter Summary ---
Author Organization [employer] ([place], [place], [place], [place]) Address [address] [place] [address] Care Team Providers Care Green Chainer Name Role Phone Dyana Barron DO Primary Care Provider Reason for Referral * Other (Routine) - Authorized Specialty Diagnoses / Procedures Referred By Contac t Referred To Contact Sleep Medicine Diagnoses Hypersomnia Procedures MULTIPLE SLEEP LATENCY TEST Julianne Pantoja MD [address] [address] Phone: tel: fax: [facility] [address] [facility] [address] [place] [address] Phone: tel: fax: Referral ID Status Reason Start Date Expiration Date V isits Requested Visits Authorized [id number] Authorized 04/10/2025 04/10/2026 1 1 * Other (Routine) - Authorized Specialty Diagnoses / Procedures Referred By Contac t Referred To Contact Sleep Medicine Diagnoses Hypersomnia Procedures POLYSOMNOGRAPHY Julianne Pantoja MD [address] [place] [address] Phone: tel: fax: [facility] [address] [place] [address] Phone: tel: fax: Referral ID Status Reason Start Date Expiration Date V isits Requested Visits Authorized [id number] Authorized 04/10/2025 04/10/2026 1 1 Encounter Details Date Type Department Care Team (Late st Contact Info) Description 03/27/2025 Orders Only [facility] [address] [facility] [address] [place] [address] Julianne Pantoja MD [address] [place] [address] Hypersomnia (Primary Dx) Social History [...] Date Jayce rded Speak language other than Barbadian at home Not on file 10/20/2023 Want [...] Description 05/22/2025 8:30 PM EDT Procedure Visit [facility] [address] [facility] [address] [place] [address] Julianne Pantoja MD [address] [facility] [address] [place] [address] 05/23/2025 8:00 AM EDT Procedure Visit [facility] [address] [address] [facility] [place] [address] Julianne Pantoja MD [address] [facility] [address] [place] [address] 06/11/2025 11:00 AM EDT Office Visit [facility] [address] [facility] [place] [address] Jluianne Pantoja MD [address] [address] 10/22/2025 1:30 PM EST Office Visit [facility] Pulmonology - [address] [place] [address] Wally Cartagena MD [address] [place] [address] Scheduled Orders Name Type Priority Associated Diagnoses Orde r Schedule POLYSOMNOGRAPHY Sleep Center Routine Hypersomnia Expected: 04/10/2025, Expires: 03/27/2026 MULTIPLE SLEEP LATENCY TEST Sleep Center Routine Hypersomnia Expected: 04/10/2025, Expires: 03/27/2026 documented as of this encounter Visit Diagnoses Diagnosis Hypersomnia- Primary Hypersomnia, unspecified documented in this encounter Care Teams Green Chainer Relationship Specialty Start Date End Date Dyana Barron DO [address] [facility] [place] [address] PCP - General Family Medicine 01/28/25 documented as of this encounter
--- OUTSIDE RECORDS SUMMARY | 2025-05-14 11:07 | XMS_ITS | Clinical Summary ---
Author Organization [facility] Address [address] [place] [address] Care Team Providers Care Invasive Physician Name Role Phone Pcp, No Primary Care Provider Unavailabl e Allergies No known active allergies Medications meclizine (Antivert) 25 MG tablet 10/19/19 24 Active dicyclomine (Bentyl) 10 mg split tablet 08/08/20 23 Active norethindrone- ethinyl estradiol (Microgestin 10/21) 1-20 MG-MCG tablet Take 1 tablet by mouth 1 (one) time each day. Active EPINEPHrine (Epipen) 0.3 MG/0.3ML injection syringe Take 1 auto as needed by injection route as directed for 28 days. Active doxycycline (Adoxa) 100 MG tablet Take 1 tablet (100 mg) by mouth 2 (two) times a day. Take with a full glass of water and do not lie down for at least 30 minutes after 6 tablet 06/24/20 23 025 Discontinued mupirocin (Bactroban) 2 % ointment 11/05/19 24 025 Discontinued Active Problems No known active problems Family [...] Mass Index 21.78 11/07/2023 4:00 PM EST Plan of Treatment Upcoming Encounters Date Type Department Care Team (Late st Contact Info) Description 05/30/2025 10:50 AM EDT Consult [facility] [address] [place] [address] Catia Christopher, TRANSCRIBING OPERATOR HEAD [address] [place] [address] Health Maintenance Due Date Last Done Comments [facility]-Chlamydia and Gonorrhea Screening 2005 [facility]-Depression Screening 2005 [facility]-/Child/Adol SDOH Screenings 2005 [facility]-Varicella Vaccines (1 of 2 - 13+ 2-dose series) 2018 HPV Vaccines (1 - 3-dose series) 2020 [facility]- SDOH Screenings 2023 [facility]-Adult SDOH Screenings 2023 [facility]-DTaP,Tdap,and Td Vaccines (1 - Tdap) 2024 [facility]-Hepatitis B Vaccines (1 of 3 - 19+ 3-dose series) 2024 [facility]-CJSVC-31 Vaccine (1 - season) 2024 [facility]-Influenza Vaccine (#1) 2025 [facility]-Zoster [...] Reactive Non Reactive 12/11/2024 12:03 AM EDT [facility] Comment:Screening for HIV 1 & 2 antibodies, and P24 antigen is NONREACTIVE. No confirmatory testing is required. Blood Venous blood specimen / Unknown Venipuncture / Unknown 12/10/2024 11:07 PM EDT 12/10/2024 11:23 PM EDT us Antonio Cooper MD LAB BLOOD ORDERABLES Final Result [facility] [address] [place] [address] * Hepatitis C Antibody - ED (12/10/2024 11:07 PM EDT) Hepatitis C Antibody Negative Negative 12/11/2024 12:03 AM EDT [facility] Blood Venous blood specimen / Unknown Venipuncture / Unknown 12/10/2024 11:07 PM EDT 12/10/2024 11:23 PM EDT Antonio Cooper MD LAB BLOOD ORDERABLES Final Result [facility] [address] [place] [address] from Last 3 Months or Most Recently Relevant to Health Maintenance Insurance [facility] [employer] [facility] MEDICAID Care Teams Invasive Physician Relationship Specialty Start Date End Date Pcp, No [address] [place] [address] PCP - General Family Medicine 06/24/23
== END 2025-05-13 23:59 | disposition home or self-care (01) ==
LOC: LAB.DROPOF 05-14 11:00
PROVIDERS: PCP Internal Medicine; Visit Provider Internal Medicine
DX: R30.0 Dysuria (principal); R35.0 Frequency of micturition; R10.2 Pelvic and perineal pain
CPT/HCPCS: 87086; 87088; 87186

== ENCOUNTER 2025-06-19 14:35 | Outpatient (CLI) | payer MEDICAID, SELFPAY ==
--- OUTSIDE RECORDS SUMMARY | 2025-05-30 10:50 | XMS_ITS | Encounter Summary ---
Author Organization Healthcare Address [address] [place] [address] Care Team Providers Care Associate Marketing Manager Name Role Phone Jani Barlow DO Primary Care Provider [phone] Reason for Visit * Reason Comments Consult Joint Pain * Consultation (Routine) - Closed Specialty Diagnoses / Procedures Referred By Contac t Referred To Contact Rheumatology Diagnoses Elevated C-reactive protein (CRP) Joint pain Jani Barlow, DO [address] [place] [address] Phone: tel: fax: Referral ID Status Reason Start Date Expiration Date V isits Requested Visits Authorized [id number] Closed Specialty Services Required 04/21/2025 10/21/2026 1 1 Encounter Details Date Type Department Care Team (Late st Contact Info) Description 05/30/2025 10:50 AM EDT [facility] [address] [place] [address] Catia Christopher, [facility]ATORY CARE [facility]ACULT[facility] [address] [place] [phone] Inflammatory back pain (Primary Dx); Frequent sinus infections; Polyarthralgia; Sick frequently Social History Tobacco Use Types Packs/Day Years Used Date Smoking Tobacco: Never Smokeless Tobacco: Never Alcohol Use Standard Drinks/Week Comments Never 0 (1 standard drink = 0.6 oz pur e alcohol) PHQ-2 Answer Date Recorded Patient Health Questionnaire-2 Score 0 05/30/2025 AUDIT-C Answer Date Recorded Q1: How often do you have a drink containing alcohol? Never 05/30/2025 Q2: How many drinks containi ng alcohol do you have on a typical day when you are drinking? Patient does not drink Q3: How often do you have si x or more drinks on one occasion? Never 05/30/2025 Comments Unknown Sex and Gender Information Value Date Recorded Sex Assigned at Not on file Legal Sex Female 6:49 PM EDT Gender Identity Not on file Sexual Orientation Not on file documented as of this encounter Last Filed Vital Signs Vital Sign Reading Time Taken Comments Blood Pressure 124/78 05/30/2025 11:00 AM EDT Pulse 93 05/30/2025 11:00 AM EDT Temperature 36.7 C (98 F) 05/30/2025 11:00 AM EDT Respiratory Rate 16 05/30/2025 11:0 0 AM EDT Oxygen Saturation 97% 05/30/2025 11: 00 AM EDT Inhaled Oxygen Concentration - - Weight 64.3 kg (141 lb 12.1 oz) 025 11:00 AM EDT Height 160 cm (5' 3 ) 05/30/2025 11:00 AM EDT Body Mass Index 25.11 05/30/2025 11:00 AM EDT documented in this encounter Functional Status * AUDIT-C Score Answer Date of Assessment Author 0 05/30/2025 11:03 AM EDT Janene Lowe * Question Answer Date of Assessment Author Q1: How often do you have a drink containing alcohol? Never 05/30/2025 11:03 AM EDT Janene Lowe Q2: How many drinks containing alcohol do you have on a typical day when you are drinking? Patient does not drink 05/30/2025 11:03 AM EDT Janene Lowe Q3: How often do you have six or more drinks on one occasion? Never 05/30/2025 11:03 AM EDT Janene Lowe * Over the past 2 weeks, how often have you been bothered by any of the following problems? Question Answer Date of Assessment Author Little interest or pleasure in doing things Not at all 05/30/2025 11:02 AM BRITTANIT Janene Lowe Feeling down, depressed, or hopeless Not at all 05/30/2025 11:02 AM EDT Janene Lowe Patient Health Questionnaire -2 Score 0 05/30/2025 11:02 AM EDT Janene Lowe documented as of this encounter Miscellaneous Notes * Patient Instructions - Catia Christopher APRN - 05/30/2025 10:50 AM EDT - recommend physical therapy for possible hypermobility. -trial daily allergy medication for recurrent rash -Get referral to ENT for chronic sinus infection. -recommend anti-inflammatory diet. * Progress Notes - Catia Christopher APRN - 05/30/2025 10:50 AM EDT Images from the original note were not included. [facility] Objective Active Ambulatory Problems Diagnosis Date Noted No Active Ambulatory Problems Resolved Ambulatory Problems Diagnosis Date Noted No Resolved Ambulatory Problems Past Medical History: Diagnosis Date Anxiety Difficulty walking Headache HL (hearing loss) Insomnia Migraine Numbness Syncope Tremor Vision loss Weakness of limb HPI Lori Vora is a 20 y.o. female with PMH significant for asthma, migraines, tachycardia, POTs, chronic nausea and stomach cramping, right sided pain, EGD normal prior, who presents (05/30/25) for CONSULTATION at [facility]. Pt was referred by Jani Barlow. Vitals: 05/30/25 1100 BP: 124/78 Pulse: 93 Resp: 16 Temp: 36.7 ??C (98 ??F) SpO2: 97% Allergies[1] Subjective Initially presenting at [facility] with the following hx: Referred with concern for elevated CRP, Labs on 12/25/24 show CRP 9.7 (cutoff 4), LAINA negative, obtained from referral notes. Initial evaluation at [facility] on 05/30/25 with boyfriend. Starting around 2021 has had muscle and joint pain. Fatigue. Stomach issues for her lifetime. Denies redness or swelling of the joints. Reports shoulder and elbow aching from mild to severe deep achethat causes nausea, maybe some increased heat. Waxes/wanes. Feels it goes with the fatigue and worse stomach issues. Subjective but objective temp is always normal, also feels chills. Uses NSAIDs, was helping more, but now not much. Flares are maybe weekly, lasting 1-3 days. Had prednisone prior with sinus infection, did not note a difference in her joints. Feels she is sick frequently. Sometimes difficulty sleeping, sometimes figueroa to pain. Has pain in the back both going to sleep and in the middle night. Sees chiropractor care helps. Stiffness every morning in the back, around an hour of stiffness. Back bothers her during the day if she sits in one position notes back pain return. Moving helps. NSAIDs help the back some, heating pad is helpful. Has been worsening since magdalena. Initial Rheum ROS: Rheumatological ROS positive for on 05/30/25: gets rash across back and shoulder (raised erythremic patch, will papules, pruritic, lasting up to 24 hours, improves with aloe, no trigger identified, has seen allergy, occurs approximately monthly). Thin nails, left thumb has a split. Had history of ten nis elbow after repetitive motion, re-occurs frequently now without a known cause. Reports muscle cramps in legs and feet. Recurrent sinusitis (6 per year). Tinnitus Rest ROS negative for: significant daily dry eyes, significant daily dry mouth, painless recurrent oral ulcers or nasal ulcers, alopecia, recurring serositis (pericarditis, pleurisy, peritonitis), psoriasis or severe nail pitting (if pso + then dactylitis and/or recurrent enthesitis), Photosensitivity (rashes, fever, fatigue, joint pain with <30 min exposure to sun), Raynaud's symptoms, digit u lcerations, renal disease, gross hematuria, severe muscle weakness (struggling to brush hair or needing to use arms to get out of a chair), dysphagia, unexplained hearing loss, psychosis or delirium,seizures, Crohn's, ulcerative colitis, uveitis, MS or other demyelinating disease, blood clots. complications (One or more unexplained deaths after 10 weeks of gestation, deliverybefore 34 weeks due to severe preeclampsia or placental insufficiency, three or more unexplained consecutive miscarriages before 10 weeks of gestation, unexplained severe growth restriction). Family History: FH of autoimmune diseases? Maternal grandomther RA? Social History: Exposure to HCV, HBV, HIV or TB. No hx IV drug use. None hx of tobacco use. none hx of alcohol abuse. 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 Summery of prior rheumatology visits: Last visit labs: Follow up 05/30/25: Consult Rheum Medication History: Used ibuprofen and naproxen at maximally tolerated doses for greater than 3 months each. Review of Systems Physical Exam The above medical information was reviewed for this encounter and updated as appropriate: There is currently no information documented on the homunculus. Go to the Rheumatology activity andcomplete the homunculus joint exam. Current Medications[2] Patient global assessment: 2/10 Rapid 3 score: 7.7/30 Swollen Joint Count: Swollen: -- Tender Joint Count: Tender: -- CDAI: CDAI Interpretation: 0-2.8 Remission 2.9 -10 Low disease activity 10.1-22.0 Moderate Activity 22.1-76.0 High Activity Assessment and Plan of Care: Plan of care developed with Lori Vora on (05/30/25): Consult labs/imagin. Inflammatory back pain (Primary) -feels symptoms in muscle, morning stiffness over one hour, some improvement with NSAIDs, will do HLAB27 and SI xray, plan MRI if normal. CRP elevated at outside referral 9.7, negative LAINA - HLA B27 Typing; Future - XR Sacroiliac Joints 3+ Views; Future 2. Frequent sinus infections -recommend follow up with ent. - ANCA Vasculitis Profile; Future 3. Polyarthralgia Elbows, shoulders, back. Recheck CRP. - C-Reactive Protein, Plasma; Future - Sedimentation Rate, Automated; Future - Cyclic Citrul Peptide Antibody IgG; Future - Rheumatoid Factor, Plasma; Future 4. Sick frequently Checking IgG - recommend physical therapy for possible hypermobility. -trial daily allergy medication for recurrent rash -Get referral to ENT for chronic sinus infection. -recommend anti-inflammatory diet. - IG Profile; Future RTC 4 months Patient is agreeable to the above treatment plan and had no further questions. Thanks for the opportunity to participate in the care of this patient! If there are any questions or concerns, please reach out to me personally. Thanks! Catia Christopher APRN Time Spent: I personally spent a total of 75 minutes on this encounter. This time includes face to face with patient, counseling and discussion and/or coordination of care. The patient was counseled about diagnostic results, instruction for management, risk factors reduction, prognosis, compliance with visits and treatment, risks and benefits of treatments options. Prior notes (by external physicians) and results were reviewed by me with independent interpretation of labs and imaging. My note will be sent to PCP and other consulting physicians. [1] No Known Allergies [2] Current Outpatient Medications Medication Sig Dispense Refill acetaminophen (Tylenol) 500 MG tablet TAKE 1 TABLET (500 MG) BY MOUTH EVERY 6 HOURS NEEDED FOR PAIN OR FEVER FOR UP TO 14 DAYS. albuterol (Proventil) (2.5 MG/3ML) 0.083% nebulizer solution Inhale 3 mL. albuterol 108 (90 Base) MCG/ACT inhaler Inhale. amitriptyline (Elavil) 10 MG tablet dilTIAZem CD (Cardizem CD) 120 MG 24 hr capsule Take 1 capsule by mouth 2 times a day. Estarylla 0.25-35 MG-MCG tablet Take 1 tablet by mouth daily. hydrOXYzine HCl (Atarax) 25 MG tablet TAKE 1 TABLET BY MOUTH EVERY DAY BY MOUTH NEEDED. ibuprofen 400 MG tablet TAKE 1 TABLET (400 MG) BY MOUTH EVERY 6 HOURS NEEDED FOR MILD PAIN OR FEVER FOR UP TO 14 DAYS. meclizine (Antivert) 25 MG tablet montelukast (Singulair) 10 MG tablet Take 1 tablet by mouth 1 time each day. naproxen (Naprosyn) 500 MG tablet TAKE 1 TABLET ORAL ROUTE 2 TIMES PER DAY NEEDED nitrofurantoin (Macrodantin) 50 MG capsule Take 1 capsule by mouth. SUMAtriptan (Imitrex) 25 MG tablet TAKE 1 TAB BY MOUTH AT ONSET OF MIGRAINE MAY REPEAT IN 2 HRS IF HEADACHE RETURNS MAX 200MG IN 24HRS Symbicort 80-4.5 MCG/ACT inhaler dicyclomine (Bentyl) 10 mg split tablet EPINEPHrine (Epipen) 0.3 MG/0.3ML injection syringe Take 1 auto as needed by injection route as directed for 28 days. norethindrone-ethinyl estradiol (Microgestin 1/20) 1-20 MG-MCG tablet Take 1 tablet by mouth 1 (one) time each day. No current facility-administered medications for this visit. documented in this encounter Plan of Treatment Upcoming Encounters Date Type Department Care Team (Late st Contact Info) Description 10/10/2025 11:50 AM EST [facility] [address] [place] [address] AshwinCatia, RESP[facility]ATORY CARE FACULTY [address] [place] [address] documented as of this encounter Results * XR Sacroiliac Joints 3+ Views (05/30/2025 12:36 PM EDT) Anatomical Region Laterality Modality Body, Spine, Pelvis Digital Radi ography Impressions 05/30/2025 2:49 PM EDT No evidence of sacroiliitis. CRITICAL RESULT: No. COMMUNICATION: Per this written report. By electronically signing this report, I, the attending physician, attest that I have personally reviewed the images/data for the above examination(s) and agree with the final edited report. Drafted by Rohini Ellis MD on 05/30/2025 2:19 PM Final report signed by Kandice Rubin MD on 05/30/2025 2:49 PM Narrative 05/30/2025 2:49 PM EDT CLINICAL INDICATION: evaluation for inflammatory changes. TECHNIQUE: XR SACROILIAC JOINTS 3+ VIEWS COMPARISON: None. FINDINGS: No erosions, irregularity or fusion at the sacroiliac joint bilaterally. No fractures or dislocation. Some cortical irregularity and seen at the symphysis pubis, could be degenerative. Procedure Note Kandice Rubin MD - 05/30/2025 CLINICAL INDICATION: evaluation for inflammatory changes. TECHNIQUE: XR SACROILIAC JOINTS 3+ VIEWS COMPARISON: None. FINDINGS: No erosions, irregularity or fusion at the sacroiliac joint bilaterally.No fractures or dislocation. Some cortical irregularity and seen at thesymphysis pubis, could be degenerative. IMPRESSION: No evidence of sacroiliitis. CRITICAL RESULT: No. COMMUNICATION: Per this written report. By electronically signing this report, I, the attending physician, attestthat I have personally reviewed the images/data for the aboveexamination(s) and agree with the final edited report. Drafted by Rohini Ellis MD on 05/30/2025 2:19 PM Final report signed by Kandice Rubin MD on 05/30/2025 2:49 PM Catia Christopher APRN IMG XR PROCEDURES Final Re sult * Rheumatoid Factor, Plasma (05/30/2025 12:12 PM EDT) Rheumatoid Factor, Plasma <10 <14 IU/mL 05/30/2025 2:16 PM EDT [facility] Blood Venous blood specimen / Unknown Venipuncture / Unknown 05/30/2025 12:12 PM EDT 05/30/2025 12:12 PM EDT Catia Christopher APRN LAB [place]LOOD [place] [address] * Cyclic Citrul Peptide Antibody IgG (05/30/2025 12:12 PM EDT) [facility] Cyclic Citrul Peptide Antibody IgG <5.0 <=5.0 U/mL 05/30/2025 2:49 PM EDT [facility] Blood Venous blood specimen / Unknown Venipuncture / Unknown 05/30/2025 12:12 PM EDT 05/30/2025 12:12 PM EDT Catia Christopher APRN LAB [place]LOOD [place] [address] * Sedimentation Rate, Automated (05/30/2025 12:12 PM EDT) [facility] Sedimentation Rate 14 <20 mm/hr 2024 1:23 PM EDT [facility] Blood Venous blood specimen / Unknown Venipuncture / Unknown 05/30/2025 12:12 PM EDT 05/30/2025 12:12 PM EDT Catia Josh Ortaer RESPIRATORY CARE FACULTY LAB BLOOD ORDERABLES Final Result Performing Organization Address City/[facility]/ZIP Co de Phone Number [facility] [address] [place] [address] * (ABNORMAL) C-Reactive Protein, Plasma (05/30/2025 12:12 PM EDT) [facility] CRP, Plasma 11.9(H) <=8.0 mg/L 05/30/2025 2:16 PM EDT [facility] Blood Venous blood specimen / Unknown Venipuncture / Unknown 05/30/2025 12:12 PM EDT 05/30/2025 12:12 PM EDT Narrative [facility] - 05/30/2025 2:16 PM EDT This CRP test is appropriate for assessment of infection, systemic inflammation and/or tissue injury. To assess cardiovascular disease risk order high sensitivity CRP (CRPH). Catia Beltransylviareji [facility] LAB BLOOD ORDERABLES Final Result Performing Organization Address City/[facility]/ZIP Co de Phone Number [facility] [address] [place] [address] * HLA B27 Typing (05/30/2025 12:12 PM EDT) Blood Venous blood specimen / Unknown Venipuncture / Unknown 05/30/2025 12:12 PM EDT 05/30/2025 12:12 PM EDT Catia M Ashwin [facility] LAB BLOOD ORDERABLES Final Result Performing Organization Address City/[facility]/ZIP Co de Phone Number [address] [address], [place] * ANCA Vasculitis Profile (05/30/2025 12:12 PM EDT) [facility] Myeloperoxidase (MPO) Ab, IgG 0 0 - 19 AU/mL 06/04/2025 6:50 AM EDT [facility] ([facility]) Serine Proteinase 3 (PR3) Ab, IgG 1 0 - 19 AU/mL 06/04/2025 6:50 AM EDT [facility] ([facility]) ANCA IFA Titer <1:20 <1:20 06/04/2025 6:50 AM EDT [facility] ([facility]) ANCA IFA Pattern None Detected None Detected 06/04/2025 6:50 AM EDT [facility] ([facility]) Blood Venous blood specimen / Unknown Venipuncture / Unknown 05/30/2025 12:12 PM EDT 05/30/2025 12:12 PM EDT Narrative [facility] ([facility]) - 06/04/2025 6:50 AM EDT INTERPRETIVE INFORMATION: Myeloperoxidase Abs, IgG 19 AU/mL or Less ......... Negative 20-25 AU/mL .............. Equivocal 26 AU/mL or Greater ...... Positive Approximately 90% of patients with a P-ANCA pattern by IFA have antibodies specific for MPO. INTERPRETIVE INFORMATION: Serine Proteinase 3, IgG 19 AU/mL or Less ........ Negative 20-25 AU/mL ............. Equivocal 26 AU/mL or Greater ..... Positive Approximately 85% of patients with a C-ANCA pattern by IFA have antibodies specific for PR3. INTERPRETIVE INFORMATION: ANCA IFA Pattern Neutrophil Cytoplasmic Antibodies (C-ANCA = granular cytoplasmic staining, P-ANCA = perinuclear staining) are found in the serum of over 90 percent of patients with certain necrotizing systemic vasculitides, and usually in less than 5 percent of patients with collagen vascular disease or arthritis. Performed By: [facility] [address] [place] [id number] Internal Medicine Physician: Albaro Gastelum MD, PhD CLIA Number: [id number] Catia Christopher APRN LAB BLOOD ORDERABLES Final Result [facility] [address] [place] [address] * IG Profile (05/30/2025 12:12 PM EDT) IGA 174 75 - 400 mg/dL 05/30/2025 2:16 PM EDT [facility] IGG 891 720 - 1,589 mg/dL 05/30/2025 2:16 PM EDT [facility] IGM 126 35 - 225 mg/dL 05/30/2025 2:16 PM EDT [facility] Blood Venous blood specimen / Unknown Venipuncture / Unknown 05/30/2025 12:12 PM EDT 05/30/2025 12:12 PM EDT us Catia Christopher [facility] LAB BLOOD ORDERABLES Final Result [facility] [address] [place] [address] documented in this encounter Visit Diagnoses Diagnosis Inflammatory back pain- Primary Frequent sinus infections Polyarthralgia Pain in joint, multiple sites Sick frequently Other ill-defined conditions Inflammatory back pain documented in this encounter Additional Health Concerns Assessment Noted Time A fall risk assessment has been complete d for the patient 05/30/2025 11:02 AM EDT A Body Mass Index follow-up plan has been documented for the patient 05/30/2025 12:16 PM EDT documented as of this encounter Care Teams Associate Marketing Manager Relationship Specialty Start Date End Date Jani Barlow DO [address] [place] [address] PCP - General 05/30/25 documented as of this encounter
--- OUTSIDE RECORDS SUMMARY | 2025-05-30 12:15 | XMS_ITS | Encounter Summary ---
Author Organization Healthcare Address [address] [place] [address] Care Team Providers Care Attending Radiologist Name Role Phone Jani Barlow Primary Care Provider [phone] Encounter Details Date Type Department Care Team (Latest Contact Info) Description 05/30/2025 12:15 PM EDT - 05/30/2025 11:59 PM EDT [facility] [address], [address] [place] [address] Inflammatory back pain Discharge Disposition: Home or Self Care Social [...] on file documented as of this encounter Functional Status * AUDIT-C Score [...] Patient does not drink 05/30/2025 11:03 AM BRITTANIT Janene Lowe Q3: How often do you have six or more drinks on one occasion? Never 05/30/2025 11:03 AM Janene Rai * Over the past 2 weeks, how often have you been bothered by any of the following problems? Question Answer Date of Assessment Author Little interest or pleasure in doing things Not at all 05/30/2025 11:02 AM Janene Rai Feeling down, depressed, or hopeless Not at all 05/30/2025 11:02 AM Janene Rai Patient Health Questionnaire -2 Score 0 05/30/2025 11:02 AM Janene Rai documented as of this encounter Medications at Time of Discharge acetaminophen (Tylenol) 500 MG tablet TAKE 1 TABLET (500 MG) BY MOUTH EVERY 6 HOURS NEEDED FOR PAIN OR FEVER FOR UP TO 14 DAYS. albuterol (Proventil) (2.5 MG/3ML) 0.083% nebulizer solution Inhale 3 mL. 04/21/2025 albuterol 108 (90 Base) MCG/ACT inhaler Inhale. amitriptyline (Elavil) 10 MG tablet dicyclomine (Bentyl) 10 mg split tablet 08/08/2023 dilTIAZem CD (Cardizem CD) 120 MG 24 hr capsule Take 1 capsule by mouth 2 times a day. EPINEPHrine (Epipen) 0.3 MG/0.3ML injection syringe Take 1 auto as needed by injection route as directed for 28 days. Estarylla 0.25-35 MG-MCG tablet Take 1 tablet by mouth daily. hydrOXYzine HCl (Atarax) 25 MG tablet TAKE 1 TABLET BY MOUTH EVERY DAY BY MOUTH NEEDED. ibuprofen 400 MG tablet TAKE 1 TABLET (400 MG) BY MOUTH EVERY 6 HOURS NEEDED FOR MILD PAIN OR FEVER FOR UP TO 14 DAYS. meclizine (Antivert) 25 MG tablet 10/19/2023 montelukast (Singulair) 10 MG tablet Take 1 tablet by mouth 1 time each day. 04/21/2025 naproxen (Naprosyn) 500 MG tablet TAKE 1 TABLET ORAL ROUTE 2 TIMES PER DAY NEEDED nitrofurantoin (Macrodantin) 50 MG capsule Take 1 capsule by mouth. 05/16/2025 norethindrone-et hinyl estradiol (Microgestin 10/21) 1-20 MG-MCG tablet Take 1 tablet by mouth 1 (one) time each day. SUMAtriptan (Imitrex) 25 MG tablet TAKE 1 TAB BY MOUTH AT ONSET OF MIGRAINE MAY REPEAT IN 2 HRS IF HEADACHE RETURNS MAX 200MG IN 24HRS Symbicort 80-4.5 MCG/ACT inhaler 02/19/2025 documented as of this encounter Plan of Treatment Upcoming Encounters Date Type Department Care Team (Late st Contact Info) Description 10/10/2025 11:50 AM EST [facility] [address] [place] [address] Catia Christopher, PROFESSOR OF PUBLIC ADMINISTRATION [address] [place] [address] documented as of this encounter Procedures Procedure Name Priority Date/Time Associated Diagnosis Comments XR SACROILIAC JOINTS 3+ VIEWS Routine 05/30/2025 12:36 PM EDT Inflammatory back pain documented in this encounter Results * XR Sacroiliac Joints [...] signing this report, I, the attending physician, attpumathat I have personally reviewed the images/data for the aboveexamination(s) and agree with the final edited report. Drafted by Rohini Ellis MD on 05/30/2025 2:19 PM Final report signed by Kandice uRbin MD on 05/30/2025 2:49 PM Catia Christopher PROFESSOR OF PUBLIC ADMINISTRATION IMG XR PROCEDURES Final Re sult documented in this encounter Visit Diagnoses Diagnosis Inflammatory back pain documented in this encounter Additional Health Concerns Assessment Noted Time A fall risk assessment has been complete d for the patient 05/30/2025 11:02 AM EDT A Body Mass Index follow-up plan has been documented for the patient 05/30/2025 12:16 PM EDT documented as of this encounter Care Teams Attending Radiologist Relationship Specialty Start Date End Date Jani Barlow DO [address] [place] [address] PCP - General 05/30/25 documented as of this encounter
--- OUTSIDE RECORDS SUMMARY | 2025-06-19 14:38 | XMS_ITS | Encounter Summary ---
Author Organization Healthcare Address [address] [place] [address] Care Team Providers Care Patient Ambassador Name Role Phone Jani Barlow DO Primary Care Provider [phone] Encounter Details Date Type Department Care Team (Latest Contact Info) Description 05/30/2025 Travel Social History Tobacco Use Types Packs/Day [...] of Assessment Author 0 05/30/2025 11:03 AM Janene Rai * Question Answer Date of Assessment Author Q1: How often do you have a drink containing alcohol? Never 05/30/2025 11:03 AM Janene Rai Q2: How many drinks containing alcohol do [...] things Not at all 05/30/2025 11:02 AM EDT Janene Lowe Feeling down, depressed, or hopeless Not at all 05/30/2025 11:02 AM EDT Janene Lowe Patient Health Questionnaire -2 Score 0 05/30/2025 11:02 AM EDT Janene Lowe documented as of this encounter Plan of Treatment Upcoming Encounters Date Type Department Care Team (Late st Contact Info) Description 10/10/2025 11:50 AM EST Office Visit [place] [facility] [address] [place] [address] Catia Christopher, BOOK SHELVER [address] [place] [address] documented as of this encounter Visit Diagnoses Not on filedocumented in this encounter Additional Health Concerns Assessment Noted Time A fall risk assessment has been complete d for the patient 05/30/2025 11:02 AM EDT A Body Mass Index follow-up plan has been documented for the patient 05/30/2025 12:16 PM EDT documented as of this encounter Care Teams Patient Ambassador Relationship Specialty Start Date End Date Jani Barlow DO [address] [facility] [address] [place] [address] PCP - General 05/30/25 documented as of this encounter
--- OUTSIDE RECORDS SUMMARY | 2025-06-19 14:38 | XMS_ITS | Clinical Summary ---
Author Organization Healthcare Address [address] [place] [address] Care Team Providers Care Project Management Analyst Name Role Phone Jani Barlow DO Primary Care Provider Allergies No known active allergies Medications meclizine (Antivert) 25 MG tablet 4 Active dicyclomine (Bentyl) 10 mg split tablet 3 Active norethindrone-e thinyl estradiol (Microgestin 10/21) 1-20 MG-MCG tablet Take 1 tablet by mouth 1 (one) time each day. Active EPINEPHrine (Epipen) 0.3 MG/0.3ML injection syringe Take 1 auto as needed by injection route as directed for 28 days. Active acetaminophen (Tylenol) 500 MG tablet TAKE 1 TABLET (500 MG) BY MOUTH EVERY 6 HOURS NEEDED FOR PAIN OR FEVER FOR UP TO 14 DAYS. Active albuterol (Proventil) (2.5 MG/3ML) 0.083% nebulizer solution Inhale 3 mL. 5 Active albuterol 108 (90 Base) MCG/ACT inhaler Inhale. Acti ve amitriptyline (Elavil) 10 MG tablet Active Symbicort 80-4.5 MCG/ACT inhaler 5 Active Estarylla 0.25-35 MG-MCG tablet Take 1 tablet by mouth daily. Active SUMAtriptan (Imitrex) 25 MG tablet TAKE 1 TAB BY MOUTH AT ONSET OF MIGRAINE MAY REPEAT IN 2 HRS IF HEADACHE RETURNS MAX 200MG IN 24HRS Active nitrofurantoin (Macrodantin) 50 MG capsule Take 1 capsule by mouth. 5 Active naproxen (Naprosyn) 500 MG tablet TAKE 1 TABLET ORAL ROUTE 2 TIMES PER DAY NEEDED Active montelukast (Singulair) 10 MG tablet Take 1 tablet by mouth 1 time each day. 5 04/21/20 26 Active ibuprofen 400 MG tablet TAKE 1 TABLET (400 MG) BY MOUTH EVERY 6 HOURS NEEDED FOR MILD PAIN OR FEVER FOR UP TO 14 DAYS. Active hydrOXYzine HCl (Atarax) 25 MG tablet TAKE 1 TABLET BY MOUTH EVERY DAY BY MOUTH NEEDED. Active dilTIAZem CD (Cardizem CD) 120 MG 24 hr capsule Take 1 capsule by mouth 2 times a day. Active Active Problems No known active problems Encounters Date Type Department Care Team Description 06/03/2025 Orders Only [facility] Medicine Specialties [address] [place] [address] Catia Christopher APRN Inflammatory back pain (Primary Dx) 06/03/2025 Results Follow-Up [facility] Medicine Specialties [address] [place] [address] Catia Christopher APRN 05/30/2025 12:15 PM EDT - 05/30/2025 11:59 PM EDT Hospital Encounter [facility] Radiology [address] [place] [address] Inflammatory back pain Discharge Disposition: Home or Self Care 05/30/2025 10:50 AM EDT Consult [facility] Medicine Specialties [address] [place] [address] Catia Christopher APRN Inflammatory back pain (Primary Dx); Frequent sinus infections; Polyarthralgia; Sick frequently 05/30/2025 Travel from Last 3 Months Family History [...] Mass Index 25.11 05/30/2025 11:00 AM EDT Plan of Treatment Upcoming Encounters Date Type Department Care Team (Late st Contact Info) Description 10/10/2025 11:50 AM EST Office Visit [place] [facility] [address] [place] [address] Catia Christopher M, PHOTOGRAPHY AND PRINTS CURATOR [address] [place] [address] Health Maintenance Due Date Last Done Comments [facility]-Chlamydia and Gonorrhea Screening 2005 [facility]-/Child/Adol SDOH Screenings 2005 [facility]-Varicella Vaccines (1 of 2 - 13+ 2-dose series) 2018 HPV Vaccines (1 - 3-dose series) 2020 [facility]- SDOH Screenings 2023 [facility]-Adult SDOH Screenings 2023 [facility]-DTaP,Tdap,and Td Vaccine s (1 - Tdap) 2024 [facility]-Hepatitis B Vaccines (1 of 3 - 19+ 3-dose series) 2024 [id number] Vaccine (1 - 2023-25 season) 2025 [facility]-Influenza Vaccine (#1) 2025 [facility]-Depression Screening 05/30/2026 05/30/2025 [facility]-Zoster Vaccines (1 of 2) 2055 [facility]-HIV Screening Completed 12/10/2024, 06/24/2023 [facility]-Hepatitis C Screening Completed 2024, 06/24/2023 [facility]-Obesity Intervention Completed 025, 11/15/2023, 11/07/2023 [facility]-HIB Vaccines Aged Out No longer e [...] 05/30/2025 12:36 PM EDT Inflammatory back pain DNA ISOLATION AND HOLD (HLA) Routine 05/30/2025 12:12 PM EDT Inflammatory back pain IG PROFILE Routine 05/30/2025 12:12 PM EDT Sick frequently ANCA VASCULITIS PROFILE (SO) Routine 05/30/2025 12:12 PM EDT Frequent sinus infections HLA B27 TYPING Routine 05/30/2025 12:12 PM EDT Inflammatory back pain C-REACTIVE PROTEIN, PLASMA Routine 05/30/2025 12:12 PM EDT Polyarthralgia SEDIMENTATION RATE, AUTOMATED Routine 05/30/2025 12:12 PM EDT Polyarthralgia CYCLIC CITRUL PEPTIDE ANTIBODY IGG Routine 05/30/2025 12:12 PM EDT Polyarthralgia RHEUMATOID FACTOR, PLASMA Routine 05/30/2025 12:12 PM EDT Polyarthralgia HEPATITIS C ANTIBODY - ED W/REFLEX TO HCV QUANT PCR STAT 12/10/2024 11:07 PM EDT ED HIV 1/2 ANTIBODY/ANTIGEN SCREEN WITH REFLEX TO HIV I/II DIFFERENTIATION STAT 12/10/2024 11:07 PM EDT from Last 3 Months or Most Recently Relevant to Health Maintenance Results * XR Sacroiliac Joints 3+ Views [...] Kandice Rubin MD on 05/30/2025 2:49 PM us Catia Christopher PHOTOGRAPHY AND PRINTS CURATOR IMG XR PROCEDURES Final Re sult * ANCA Vasculitis Profile (05/30/2025 12:12 PM EDT) Myeloperoxidase (MPO) Ab, IgG 0 0 - 19 AU/mL 06/04/2025 6:50 AM EDT [facility] ([facility]) Serine Proteinase 3 (PR3) Ab, IgG 1 0 - 19 AU/mL 06/04/2025 6:50 AM EDT [facility] ([facility]) ANCA IFA Titer <1:20 <1:20 06/04/2025 6:50 AM EDT [facility] ([facility]) ANCA IFA Pattern None Detected None Detected 06/04/2025 6:50 AM EDT [facility] ([facility]) Blood Venous blood specimen / Unknown Venipuncture / Unknown 05/30/2025 12:12 PM EDT 05/30/2025 12:12 PM EDT Narrative [facility] ([facility]) - 06/04/2025 6:50 AM EDT INTERPRETIVE INFORMATION: [...] collagen vascular disease or arthritis. Performed By: [facility] [address] [place] [address] Phlebotomy Support Tech: Albaro Gastelum MD, PhD CLIA Number: [id number] Catia Christopher PHOTOGRAPHY AND PRINTS CURATOR LAB BLOOD ORDERABLES Final Result Performing Organization Address City/[facility]/ZIP Co de Phone Number [facility] [address] [place] [id number] * DNA Isolation and Hold (HLA) (05/30/2025 12:12 PM EDT) Blood Venous blood specimen / Unknown Venipuncture / Unknown 05/30/2025 12:12 PM EDT 05/30/2025 12:12 PM EDT Catia Christopher APRN LAB MOLECULAR DIAGNOSTICS ORDERABLES Final Result Performing Organization Address City/[facility]/ZIP Co de Phone Number [facility] [address] [place] [address], [place] * IG Profile (05/30/2025 12:12 PM EDT) IGA 174 75 - 400 mg/dL 05/30/2025 2:16 PM EDT [facility] IGG 891 720 - 1,589 mg/dL 05/30/2025 2:16 PM EDT [facility] IGM 126 35 - 225 mg/dL 05/30/2025 2:16 PM EDT [facility] Blood Venous blood specimen / Unknown Venipuncture / Unknown 05/30/2025 12:12 PM EDT 05/30/2025 12:12 PM EDT Catia Beltransylviareji CERDAN LAB BLOOD ORDERABLES Final Result Performing Organization Address City/[facility]/ZIP Co de Phone Number [facility] [address] [place] [address] * HLA B27 Typing (05/30/2025 12:12 PM EDT) Blood Venous blood specimen / Unknown Venipuncture / Unknown 05/30/2025 12:12 PM EDT 05/30/2025 12:12 PM EDT Catia Beltranban [facility] LAB BLOOD ORDERABLES Final Result Performing Organization Address [facility] [place] [address], * Cyclic Citrul Peptide Antibody IgG (05/30/2025 12:12 PM EDT) Cyclic Citrul Peptide Antibody IgG <5.0 <=5.0 U/mL 05/30/2025 2:49 PM EDT [facility] Blood Venous blood specimen / Unknown Venipuncture / Unknown 05/30/2025 12:12 PM EDT 05/30/2025 12:12 PM EDT Catia Beltranban CERDAN LAB BLOOD ORDERABLES Final Result Performing Organization Address [facility] [place] [address] * Sedimentation Rate, Automated (05/30/2025 12:12 PM EDT) Sedimentation Rate 14 <20 mm/hr 2024 1:23 PM EDT [facility] Blood Venous blood specimen / Unknown Venipuncture / Unknown 05/30/2025 12:12 PM EDT 05/30/2025 12:12 PM EDT Catia Beltranban PHOTOGRAPHY AND PRINTS CURATOR LAB BLOOD ORDERABLES Final Result Performing Organization Address City/[facility]/ZIP Co de Phone Number [address] [address] [place] [address] * Rheumatoid Factor, Plasma (05/30/2025 12:12 PM EDT) Pathologist [facility] Rheumatoid Factor, Plasma <10 <14 IU/mL 05/30/2025 2:16 PM EDT [facility] Blood Venous blood specimen / Unknown Venipuncture / Unknown 05/30/2025 12:12 PM EDT 05/30/2025 12:12 PM EDT Catia M Dream Kitchensylviaer PHOTOGRAPHY AND PRINTS CURATOR LAB BLOOD ORDERABLES Final Result [facility] [address] [place] [address] * (ABNORMAL) C-Reactive Protein, Plasma (05/30/2025 12:12 PM EDT) [facility] CRP, Plasma 11.9(H) <=8.0 mg/L 05/30/2025 2:16 PM EDT [facility] Blood Venous blood specimen / Unknown Venipuncture / Unknown 05/30/2025 12:12 PM EDT 05/30/2025 12:12 PM EDT Narrative [facility] - 05/30/2025 2:16 PM EDT This CRP test is appropriate for assessment of infection, systemic inflammation and/or tissue injury. To assess cardiovascular disease risk order high sensitivity CRP (CRPH). [facility] PHOTOGRAPHY AND PRINTS CURATOR LAB BLOOD ORDERABLES Final Result [facility] [address] [place] [address] * ED HIV 1/2 Antibody/Antigen Screen w/Reflex to HIV 1/2 Differentiation (12/10/2024 11:07 PM EDT) [facility] HIV 1 & 2 Antibody/Antigen Screen Non Reactive Non Reactive 12/11/2024 12:03 AM EDT [facility] Comment:Screening for HIV 1 & 2 antibodies, and P24 antigen is NONREACTIVE. No confirmatory testing is required. Blood Venous blood specimen / Unknown Venipuncture / Unknown 12/10/2024 11:07 PM EDT 12/10/2024 11:23 PM EDT Antonio Cooper MD LAB BLOOD ORDERABLES Final Result [facility] [address] [place] [address] * Hepatitis C Antibody - ED (12/10/2024 11:07 PM EDT) Hepatitis C Antibody Negative Negative 12/11/2024 12:03 AM EDT [facility] Blood Venous blood specimen / Unknown Venipuncture / Unknown 12/10/2024 11:07 PM EDT 12/10/2024 11:23 PM EDT Antonio Cooper MD LAB BLOOD ORDERABLES Final Result Performing Organization Address City/[facility]/ZIP Co de Phone Number [facility] [address] [place] [address] from Last 3 Months or Most Recently Relevant to Health Maintenance Insurance [facility] MEDICAID Care Teams Project Management Analyst Relationship Specialty Start Date End Date Jani Barlow DO [address] [place] [facility] [address] [place] [id number] PCP - General 05/30/25
--- OUTSIDE RECORDS SUMMARY | 2025-06-19 14:38 | XMS_ITS | Encounter Summary ---
Author Organization Healthcare Address [address] [place] [address] Care Team Providers Care Licensed Nurse Practitioner Name Role Phone Jani Barlow Primary Care Provider [phone] Reason for Referral * Imaging (Routine) - Pending Review Specialty Diagnoses / Procedures Referred By Contdouglas t Referred To Contact Radiology Diagnoses Inflammatory back pain Procedures MR Pelvis w and wo IV Contrast Catia Christopher APRN [address] [place] [address] Phone: tel: fax: Referral ID Status Reason Start Date Expiration Date V isits Requested Visits Authorized [id number] Pending Review 06/03/2025 12/03/2026 1 1 Encounter Details Date Type Department Care Team (Late st Contact Info) Description 06/03/[address] [facility] Medicine Specialties [address] [place] [address] Catia Christopher APRN [address] [place] [address] Inflammatory back pain (Primary Dx) Social History Tobacco Use Types [...] Description 10/10/2025 11:50 AM EST Office Visit [facility] [address] [place] [address] Catia Christopher M, CITY PLANNER [address] [place] [address] Scheduled Orders Name Type Priority Associated Diagnoses Orde r Schedule MR Pelvis w and wo IV Contrast Imaging Routine Inflammatory back pain Expected: 07/03/2025, Expires: 12/05/2026 documented as of this encounter Visit Diagnoses Diagnosis Inflammatory back pain- Primary documented in this encounter Additional Health Concerns Assessment Noted Time A fall risk assessment has been complete d for the patient 05/30/2025 11:02 AM EDT A Body Mass Index follow-up plan has been documented for the patient 05/30/2025 12:16 PM EDT documented as of this encounter Care Teams Licensed Nurse Practitioner Relationship Specialty Start Date End Date Jani Barlow DO [address] [place] [address] PCP - General 05/30/25 documented as of this encounter
--- OUTSIDE RECORDS SUMMARY | 2025-06-19 14:38 | XMS_ITS | Clinical Summary ---
Author Organization [facility] Address [address] [facility] [address] [place] [address] Phone Care Team Providers Care Carbide Tool Maker Name Role Phone Unavailable Unavailable Conditions or Problems No information available. Medications No information available. Medications Administered No information available. Allergies, Adverse Reactions, Alerts No information available. Results No information available. Plan of Care No information available. Procedures No information available. Vital Signs No information available. Immunizations No information available. Advance Directives No information available.
--- OUTSIDE RECORDS SUMMARY | 2025-06-19 14:38 | XMS_ITS | Encounter Summary ---
Author Organization Healthcare Address [address] [place] [address] Care Team Providers Care Gas Brazer Name Role Phone Jani Barlow DO Primary Care Provider [phone] Encounter Details Date Type Department Care Team (Late st Contact Info) Description 06/03/2025 Results Follow-Up [facility] Medicine Specialties [address] [place] [address] Catia Christopher M, CARPET RENOVATOR [address] [place] [address] Social History Tobacco Use Types Packs/Day Years [...] Description 10/10/2025 11:50 AM EST Office Visit [facility] Medicine Specialties [address] [place] [address] Catia Christopher M, CARPET RENOVATOR [address] [place] [address] documented as of this encounter Visit Diagnoses Not on filedocumented in this encounter Additional Health Concerns Assessment Noted Time A fall risk assessment has been complete d for the patient 05/30/2025 11:02 AM EDT A Body Mass Index follow-up plan has been documented for the patient 05/30/2025 12:16 PM EDT documented as of this encounter Care Teams Gas Brazer Relationship Specialty Start Date End Date Jani Barlow DO [address] [place] [address] [place] [address] PCP - General 05/30/25 documented as of this encounter
--- NOTE | 2025-06-19 14:45 | MR_ITS ---
FINAL REPORT CLINICAL HISTORY: Pelvic pain, adnexal mass LOWER ABDOMINAL PAIN 12 ML [place] COMPARISON: CT of the abdomen and pelvis 12/09/2024 FINDINGS: MRI PELVIS WITH AND WITHOUT CONTRAST: The uterus is normal in appearance. The ovaries appear normal as well. The previously seen left adnexal cyst on the prior CT of 12/09/2024 has resolved, consistent with a resolved benign functional ovarian cyst. A small amount of free fluid is present in the pelvis consistent with physiologic fluid. No adenopathy is identified in the pelvis. The bladder is unremarkable in appearance. IMPRESSION: 1. Previously seen left adnexal cyst has resolved, consistent with resolved benign functional ovarian cyst. 2. Small amount of free fluid in the pelvis, consistent with physiologic fluid. Reviewed, Interpreted and Dictated by Maritza Lara MD Transcribed by Freda Luna Authenticated and [facility]
[2025-06-19] MEDS: GADOTERIDOL INJ 20ML SYRINGE 12 ML IV (15:32)
[2025-06-19] MEDS: SODIUM CHLORIDE 0.9% 10ML SYR (RAD ONLY) 10 ML IV (15:32)
== END 2025-06-19 23:59 | disposition home or self-care (01) ==
LOC: RAD 14:35
PROVIDERS: PCP Internal Medicine; Visit Provider Internal Medicine
DX: N94.89 Other specified conditions associated with female genital organs and menstrual cycle (principal); R10.2 Pelvic and perineal pain; N94.12 Deep dyspareunia; N80.9 Endometriosis, unspecified; R93.89 Abnormal findings on diagnostic imaging of other specified body structures
CPT/HCPCS: 72197; A9576